=== PATIENT | male | born 1965 | race Caucasian/White ===

== ENCOUNTER 2016-06-24 14:58 | Emergency (ER) | payer OTHER ==
[~2016-06-24] VITALS: Ht 193 cm; Wt 165.1 kg
[~2016-06-24 14:58] MED LIST: (NONE) 12.5 MG-1 TAB PO; ADVAIR 500-501 EACH INH; AMLODIPINE BESY10 M1 PO; ASPIRIN EC325 MG PO; ASPIRIN EC81 M1 PO; AUGMENTIN 875 M1 TAB PO; AZITHROMYCIN250 M1 PO; COZAAR50 M1 PO; CRESTOR20 M2 PO; DEEP SEA44 ML NAS; GLIMEPIRIDE2 MG PO; GUAIFENESIN AC473 M1 PO; GUAIFENESIN ER600 MG PO; HYDROCHLOROTH12.5 M3 PO; JANUMET 1000 MG1 TAB PO; KEFLEX500 MG PO; LEVEMIR 10100 UNITS/ SC; LEVEMIR FL300 UNITS/ SC; LEVEMIR100 UNIT/1 SC; LOSARTAN POTASS25 M1 PO; MEDROL DOSEPAK1 PAC PO; METFORMIN HCL1000 M1 PO; NEXIUM40 M1 PO; NOVOLOG FLEX100 U/ML SC; NOVOLOG100 U/ML SC; PERCOCET 325 MG1 TA2 PO; PERCOCET 325 MG1 TAB PO; PREDNISONE10 M2 PO; PREDNISONE10 MG PO; PREDNISONE20 M1 PO; ROBITUSSIN W/CO10 ML PO; ROXICODONE15 M1 PO; SERTRALINE HYD100 MG PO; SLOW-MAG71.5 MG PO; SYMBICORT 160/41 PUF INH; VICTOZA6 MG/ML SC; ZITHROMAX TRI-500 M1 PO
--- NOTE | 2016-06-24 15:43 | RADIOLOGY REPORT ---
EXAMINATION: XR SHOULDER, LEFT CLINICAL INFORMATION: Pain in shoulder. Rule out fracture or dislocation. COMPARISON: None TECHNIQUE: AP external rotation, Grashey, scapular Y, and axillary views of the left shoulder. FINDINGS: There is no fracture or dislocation. There are mild degenerative changes of the glenohumeral joint characterized by mild subchondral sclerosis. There is mild osteoarthritis of the acromioclavicular joint. The visualized portion of the left lung is clear. IMPRESSION: No fracture or dislocation. Minimal degenerative change.
[2016-06-24] MEDS ORDERED: LISINOPRIL-HCT1 EACH PO (16:22)
[2016-06-24] MEDS ORDERED: AMARYL4 M1 PO (16:22)
[2016-06-24] MEDS ORDERED: MONTELUKAST SOD10 M1 PO (16:25)
[2016-06-24 17:06] VITALS: BP 145/87
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
[2016-06-24] MEDS ORDERED: VENTOLIN HFA18 GM INH (17:45)
[2016-06-24] MEDS ORDERED: ZITHROMAX250 M2 PO (17:45)
[2016-06-24] MEDS ORDERED: GUAIFENESIN-COD10 ML PO (17:45)
[2016-06-24] MEDS ORDERED: MEDROL4 M2 PO (17:45)
[2016-11-08] MEDS ORDERED: COZAAR50 M1 PO (22:39)
[2016-11-08] MEDS ORDERED: HYDROCHLOROTHIA25 M1 PO (22:39)
[2016-11-08] MEDS ORDERED: NAPROXEN500 M2 PO (22:40)
[2016-11-08] MEDS ORDERED: ALBUTEROL2.5 MG/3 M INH/SOL (22:41)
[2016-11-08] MEDS ORDERED: LEVEMIR FL100 UNIT/1 SC (22:41)
[2016-11-09] MEDS ORDERED: AUGMENTIN 875-1 EACH PO (00:03)
== END 2016-06-24 17:57 ==
LOC: ERH 14:58
DX: S46.912A Strain of unspecified muscle, fascia and tendon at shoulder and upper arm level, left arm, initial encounter (principal); J40 Bronchitis, not specified as acute or chronic; Z72.0 Tobacco use
CPT/HCPCS: 73030-LT

== ENCOUNTER 2016-08-20 15:16 | Emergency (ER) | payer OTHER ==
[~2016-08-20] VITALS: Ht 193 cm; Wt 154.2 kg
[~2016-08-20 15:16] MED LIST changes: +AMARYL4 M1 PO; +GUAIFENESIN-COD10 ML PO; +LISINOPRIL-HCT1 EACH PO; +MEDROL4 M2 PO; +MONTELUKAST SOD10 M1 PO; +VENTOLIN HFA18 GM INH; +ZITHROMAX250 M2 PO
--- NOTE | 2016-08-20 16:01 | ED GI/GU/ABDOMINAL COMPLAINT ---
History of Present Illness General Chief Complaint: Abdominal Pain/Flank Pain Stated Complaint: ABD PAIN Source: patient Exam Limitations: no limitations Vital Signs & Intake/Output Vital Signs & Intake/Output Vital Signs Date Time Temp Pulse Resp B/P Pulse O2 O2 Flow FiO2 Ox Delivery Rate 08/20 1541 98.6 80 20 164/101 98 Room Air Allergies Coded Allergies: NO KNOWN ALLERGIES (02/03/15) Reconcile Medications Albuterol Sulfate (Ventolin Hfa) 90 MCG HFA.AER.AD 2 PUF INH Q4-6 PRN PRN WHEEZING Amlodipine Besylate 10 MG TABLET 1 TAB PO DAILY BP (Reported) Aspirin (Ecotrin*) 81 MG TABLET.DR 1 TAB PO DAILY HEART/BLOOD (Reported) Codeine Phosphate/Guaifenesi (Cheratussin AC Syrup) 10 MG-100 MG/5 ML LIQUID 10 ML PO Q6 PRN cough Cyclobenzaprine HCl 10 MG TABLET 1 TAB PO TID MUSCLE SPASMS (Reported) Esomeprazole (Nexium) 40 MG CAPSULE.DR 1 CAP PO BID GI (Reported) Fluticasone/Salmeterol (Advair 500-50 Diskus) 500 MCG-50 MCG/DOSE BLST.W.DEV 1 PUF INH BID ASTHMA (Reported) Glimepiride (Amaryl) 4 MG TABLET 1 TAB PO BID DM (Reported) Hydrochlorothiazide 12.5 MG CAPSULE 1 CAP PO DAILY BP (Reported) Insulin Detemir (Levemir Flextouch) 100 UNIT/ML (3 ML) INSULN.PEN 15 UNITS SC QPM DM (Reported) Liraglutide (Victoza 3-Micah) 0.6 MG/0.1 ML (18 MG/3 ML) PEN.INJCTR 1.8 MG SC DAILY DM (Reported) Losartan Potassium (Cozaar) 25 MG TABLET 1 TAB PO DAILY HTN (Reported) Metformin HCl 1,000 MG TABLET 1,000 MG PO 0800,1700 DIABETES Montelukast Sodium 10 MG TABLET 1 TAB PO DAILY Asthma (Reported) Naproxen 500 MG TABLET 1 TAB PO BID PAIN (Reported) Oxycodone HCl (Roxicodone) 15 MG TABLET 1 TAB PO 4 TIMES/DAY PAIN (Reported) Rosuvastatin Calcium (Crestor) 20 MG TABLET 1 TAB PO DAILY CHOLESTEROL ( Reported) Sertraline HCl 100 MG TABLET 1 TAB PO DAILY MENTAL HEALTH (Reported) Zolpidem Tartrate 10 MG TABLET 1 TAB PO QPM PRN SLEEP (Reported) Triage Note: RECEIVED 50 YO MALE C/O VOMITED LARGE AMOUNT OF BLACK VOMITUS EARLY TUESDAY MORNING. PT CONTINUES TO REPORT UPPER ABDOMINAL PAIN, WORSENING WITH COUGHING. +WEAKNESS AND LIGHTHEADEDNESS WITH MILD NAUSEA. Triage Nurses Notes Reviewed? yes Onset: Abrupt Duration: day(s): (3), waxing and waning Timing: recent history Location: epigastric No Modifying Factors: none Associated Symptoms: ANXIOUS, WEAK, SHORT OF BREATH HPI: 50 year old male presents with history of epigastric pain, black vomiting since tuesday. Patient vomited a few times. Associated shortness of breath and fatigue. Denies chest pain. Has not been able to hold down nexium since . Denies history of alcohol abuse, esophageal varicies. He takes naproxen twice a day and a daily aspirin. Past History Travel History Traveled to [place] past 21 day No Medical History Any Pertinent Medical History? 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 No Review of Systems Review of Systems Constitutional: Denies: chills, fever. EENTM: Reports: no symptoms. Respiratory: Reports: short of breath. Denies: cough, sputum production. Cardiovascular: Denies: chest pain. GI: Reports: abdominal pain, nausea, vomiting. Denies: bloating, constipation, diarrhea. Genitourinary: Reports: no symptoms. Musculoskeletal: Reports: no symptoms. Skin: Reports: no symptoms. Neurological/Psychological: Reports: weakness. Hematologic/Endocrine: Reports: bleeding. Denies: bruising, polyuria, polydipsia. Immunologic/Allergic: Denies: splenectomy. All Other Systems: Reviewed and Negative Physical Exam Physical Exam General Appearance: well developed/nourished, alert, awake, anxious, mild distress, obese Head: atraumatic, normal appearance Eyes: Bilateral: normal appearance, PERRL, EOMI. Ears, Nose, Throat, Mouth: hearing grossly normal, moist mucous membrane Neck: normal inspection, supple, full range of motion Respiratory: normal breath sounds, chest non-tender, no respiratory distress Cardiovascular: regular rate/rhythm Peripheral Pulses: 2+ radial (R), 2+ radial (L) Gastrointestinal: normal bowel sounds, soft, non-tender Rectal: heme negative stool Extremities: normal range of motion Neurologic/Psych: no motor/sensory deficits, awake, alert, oriented x 3 Skin: intact, normal color, warm/dry Core Measures ACS in differential dx? No Severe Sepsis Present: No Septic Shock Present: No Progress Differential Diagnosis: pancreatitis, peptic ulcer, PUD/GERD, AVM, ANEMIA, GASTRIC ULCER, VARICIES, ABHIJIT KEYS TEAR Plan of Care: Orders Procedure Date/time Status LACTIC ACID 08/20 1900 Active TROPONIN LEVEL 08/20 1600 Active PARTIAL THROMBOPLASTIN TIME 08/20 1600 Active PROTHROMBIN TIME 08/20 1600 Active LIPASE 08/20 1600 Active LACTIC ACID 08/20 1600 Active COMPREHENSIVE METABOLIC PANEL 08/20 1600 Active CBC WITHOUT DIFFERENTIAL 08/20 1600 Complete EKG 08/20 1600 Active TYPE & SCREEN (NOT X-MATCH) 08/20 1600 Active Laboratory Tests 08/20/16 1630: Anion Gap 11, Estimated GFR > 60, BUN/Creatinine Ratio 18.9, Glucose 178 H, Lactic Acid 1.4, Calcium 10.2, Total Bilirubin 0.4, AST 23, ALT 33, Alkaline Phosphatase 98, Troponin I Pending, Total Protein 7.1, Albumin 4.0, Globulin 3.1 , Albumin/Globulin Ratio 1.3, Lipase 105, PT Pending, INR Pending, APTT Pending, CBC w Diff NO MAN DIFF REQ, RBC 4.28 L, MCV 89.2, MCH 28.7, RDW 14.6 H, MPV 8.1, Gran % 64.8, Lymphocytes % 21.6, Monocytes % 11.2 H, Eosinophils % 1.7, Basophils % 0.7, Absolute Granulocytes 6.8 H, Absolute Lymphocytes 2.3, Absolute Monocytes 1.2 H, Absolute Eosinophils 0.2, Absolute Basophils 0.1, PUBS MCHC 32.2 L GI COCKTAIL GIVEN. LABS ORDERED IN TRIAGE. GUIAC NEGATIVE, NO ACUTE DISTRESS. NO VOMIITNG. ANTIHYPERTENSIVES ORDERED. H/H . PATIENT FEELING BETTER AFTER GI COCKTAIL. WILL FOLLOW UP WITH GI. (BLACK AHUJA,CECILIA) Initial ED EKG: NSR Departure Departure Time of Disposition: 1721 Disposition: HOME OR SELF CARE Condition: Stable Clinical Impression Primary Impression: Upper GI bleed Referrals: DEVIN ORTIZ (PCP/Family) Additional Instructions: Please discontinue the naproxen and aspirin until you follow up with Dr. Garcia in the office. Please continue all of your other regular medications especially your Nexium. If you have any further events of gastrointestinal bleeding please return immediately to the ER. Departure Forms: Customer Survey General Discharge Information Prescriptions: Current Visit Scripts Codeine Phosphate/Guaifenesi (Cheratussin AC Syrup) 10 ML PO Q6 PRN cough #150 ML
[2016-08-20] MEDS ORDERED: VICTOZA 3-0.6 MG/0.1 SC (16:35)
[2016-08-20] MEDS ORDERED: LOSARTAN POTASS25 M1 PO (16:36)
[2016-08-20] MEDS ORDERED: HYDROCHLOROTH12.5 M3 PO (16:37)
[2016-08-20] MEDS ORDERED: NAPROXEN500 M2 PO (16:38)
[2016-08-20] MEDS ORDERED: CYCLOBENZAPRINE10 M1 PO (16:38)
[2016-08-20] MEDS ORDERED: SERTRALINE HCL100 MG PO (16:38)
[2016-08-20] MEDS ORDERED: ZOLPIDEM TARTRA10 M1 PO (16:39)
[2016-08-20] MEDS ORDERED: LEVEMIR FL100 UNIT/1 SC (16:39)
[2016-08-20 16:53] LABS: ABSOLUTE BASOPHIL COUNT 0.1 /CUMM (0.0-0.2); ABSOLUTE EOSINOPHIL COUNT 0.2 /CUMM (0.0-0.7); ABSOLUTE GRANULOCYTE CT 6.8 /CUMM (1.4-6.5); ABSOLUTE LYMPH COUNT 2.3 /CUMM (1.2-3.4); ABSOLUTE MONOCYTE COUNT 1.2 /CUMM (0.10-0.60); BASOPHIL % 0.7 % (0.0-2.0); EOSINOPHIL % 1.7 % (0-5); GRANULOCYTE % 64.8 % (42.2-75.2); HEMATOCRIT 38.2 % (42-52); MEAN CORPUSCULAR HGB 28.7 PG (27.0-31.0); MEAN CORPUSCULAR HGB CONC 32.2 G/DL (33.0-37.0); MEAN CORPUSCULAR VOLUME 89.2 FL (80.0-94.0); MEAN PLATELET VOLUME 8.1 FL (7.4-10.4); PLATELET COUNT 424 /CUMM (130-400); RBC DISTRIBUTION WIDTH 14.6 % (11.5-14.5); RED BLOOD CELL CT 4.28 /CUMM (4.70-6.10); WHITE BLOOD CELL COUNT 10.5 /CUMM (4.8-10.8)
[2016-08-20 17:01] LABS: PT 10.4 SEC (9.4-12.5); PTT 28 SEC (25-37)
[2016-08-20] MEDS ORDERED: CHERATUSSIN AC118 M1 PO (17:30)
[2016-08-20 17:43] VITALS: BP 160/89
[2016-11-08] MEDS ORDERED: COZAAR50 M1 PO (22:39)
[2016-11-08] MEDS ORDERED: HYDROCHLOROTHIA25 M1 PO (22:39)
[2016-11-08] MEDS ORDERED: NAPROXEN500 M2 PO (22:40)
[2016-11-08] MEDS ORDERED: ALBUTEROL2.5 MG/3 M INH/SOL (22:41)
[2016-11-08] MEDS ORDERED: LEVEMIR FL100 UNIT/1 SC (22:41)
[2016-11-09] MEDS ORDERED: AUGMENTIN 875-1 EACH PO (00:03)
== END 2016-08-20 17:43 ==
LOC: ERH 15:16
PROVIDERS: Emergency Medicine
DX: K92.2 Gastrointestinal hemorrhage, unspecified (principal); R06.02 Shortness of breath; I10 Essential (primary) hypertension; Z72.0 Tobacco use
CPT/HCPCS: 93005; 93010

== ENCOUNTER 2016-08-22 16:19 | Inpatient (IN) | payer OTHER ==
[~2016-08-22] VITALS: Ht 193 cm; Wt 154.2 kg
[~2016-08-22 16:19] MED LIST changes: +CHERATUSSIN AC118 M1 PO; +CYCLOBENZAPRINE10 M1 PO; +LEVEMIR FL100 UNIT/1 SC; +NAPROXEN500 M2 PO; +SERTRALINE HCL100 MG PO; +VICTOZA 3-0.6 MG/0.1 SC; +ZOLPIDEM TARTRA10 M1 PO
--- NOTE | 2016-08-22 16:27 | NUR ---
PT C/O HAVING TROUBLE WITH HIS ASTHMA. PT STATES HE WAS SEEN A COUPLE OF DAYS AGO FOR SAME. PT WAS GIVEN GARTH AC AND STATES HE IS STILL COUGHING ALL DAY LONG AND STATES IT IS GETTING PAINFUL TO COUGH. PT STATES HE HAS BEEN USING HIS INHALER Q4H BUT IT ISN'T HELPING. PT STATES WHEN IT GETS BAD LIKE THIS HE NEEDS A SHOT OF SOLUMEDROL.
--- NOTE | 2016-08-22 17:02 | ED DYSPNEA/ASTHMA COMPLAINT ---
History of Present Illness General Chief Complaint: Wheezing/Asthma Stated Complaint: ASTHMA Source: patient Exam Limitations: no limitations Vital Signs & Intake/Output Vital Signs & Intake/Output Vital Signs Date Time Temp Pulse Resp B/P Pulse O2 O2 Flow FiO2 Ox Delivery Rate 08/224 99.0 100 20 148/70 96 Room Air 08/23 2015 98.1 104 20 142/68 98 Non 90% ReBreather 08/22 1842 98 08/22 1733 98.0 85 22 172/75 94 Room Air 08/22 1731 98 08/22 1713 Room Air 08/22 1627 98.6 91 16 177/99 97 Room Air Allergies Coded Allergies: NO KNOWN ALLERGIES (02/03/15) Triage Note: PT C/O HAVING TROUBLE WITH HIS ASTHMA. PT STATES HE WAS SEEN A COUPLE OF DAYS AGO FOR SAME. PT WAS GIVEN GARTH AC AND STATES HE IS STILL COUGHING ALL DAY LONG AND STATES IT IS GETTING PAINFUL TO COUGH. PT STATES HE HAS BEEN USING HIS INHALER Q4H BUT IT ISN'T HELPING. PT STATES WHEN IT GETS BAD LIKE THIS HE NEEDS A SHOT OF SOLUMEDROL. Triage Nurses Notes Reviewed? yes Onset: Abrupt Duration: day(s):, constant, continues in ED Timing: recent history Severity: moderate, severe HPI: 50-year-old male comes into the emergency room for further evaluation of shortness of breath, cough, congestion, mucus production. Some chest tightness. Patient has a history of asthma and smoking and reports this feels like his asthma. Patient was seen here the other day for abdominal pain and vomiting up blood and sent home. He had a normal workup. Denies any chest pain. Denies any other associated symptoms. (YESSENIA DORADO) Reconcile Medications Albuterol Sulfate (Ventolin Hfa) 90 MCG HFA.AER.AD 2 PUF INH Q4-6 PRN PRN WHEEZING Amlodipine Besylate 10 MG TABLET 1 TAB PO DAILY BP (Reported) Aspirin (Ecotrin*) 81 MG TABLET.DR 1 TAB PO DAILY HEART/BLOOD (Reported) Codeine Phosphate/Guaifenesi (Cheratussin AC Syrup) 10 MG-100 MG/5 ML LIQUID 10 ML PO Q6 PRN cough Cyclobenzaprine HCl 10 MG TABLET 1 TAB PO TID MUSCLE SPASMS (Reported) Esomeprazole (Nexium) 40 MG CAPSULE.DR 1 CAP PO BID GI (Reported) Fluticasone/Salmeterol (Advair 500-50 Diskus) 500 MCG-50 MCG/DOSE BLST.W.DEV 1 PUF INH BID ASTHMA (Reported) Glimepiride (Amaryl) 4 MG TABLET 1 TAB PO BID DM (Reported) Hydrochlorothiazide 12.5 MG CAPSULE 1 CAP PO DAILY BP (Reported) Insulin Detemir (Levemir Flextouch) 100 UNIT/ML (3 ML) INSULN.PEN 15 UNITS SC QPM DM (Reported) Liraglutide (Victoza 3-Micah) 0.6 MG/0.1 ML (18 MG/3 ML) PEN.INJCTR 1.8 MG SC DAILY DM (Reported) Losartan Potassium (Cozaar) 25 MG TABLET 1 TAB PO DAILY HTN (Reported) Metformin HCl 1,000 MG TABLET 1,000 MG PO 0800,1700 DIABETES Montelukast Sodium 10 MG TABLET 1 TAB PO DAILY Asthma (Reported) Naproxen 500 MG TABLET 1 TAB PO BID PAIN (Reported) Oxycodone HCl (Roxicodone) 15 MG TABLET 1 TAB PO 4 TIMES/DAY PAIN (Reported) Rosuvastatin Calcium (Crestor) 20 MG TABLET 1 TAB PO DAILY CHOLESTEROL ( Reported) Sertraline HCl 100 MG TABLET 1 TAB PO DAILY MENTAL HEALTH (Reported) Zolpidem Tartrate 10 MG TABLET 1 TAB PO QPM PRN SLEEP (Reported) (GARRICK AHUJA,RAMILA Jordan) Past History Travel History Traveled to [place] past 21 day No Medical History Any Pertinent Medical History? see below for history Neurological: dizziness EENT: NONE Cardiovascular: hypertension, hyperlipidemia Respiratory: asthma, bronchitis Gastrointestinal: NONE Hepatic: NONE Renal: NONE Musculoskeletal: CELLULITIS Psychiatric: depression Endocrine: diabetes Blood Disorders: NONE Cancer(s): NONE DIAGNOSTIC CARDIAC SONOGRAPHER/Reproductive: NONE Other Medical Hx: Hx of MRSA History of MRSA: Yes History of VRE: No History of CDIFF: No Surgical History Surgical History: partial lung removal splenectomy Psychosocial History Who do you live with Patient/Self Services at Home None What is your primary language Maldivian Tobacco Use: Current Not Daily Daily Tobacco Use Amount/Type: =< 4 Cigarettes daily ETOH Use: occasional use Illicit Drug Use: denies illicit drug use Family History Family History, If Any: FATHER FH: diabetes mellitus SISTER FH: lymphoma Hx Contributory? No (YESSENIA DORADO) Review of Systems Review of Systems Constitutional: Reports: no symptoms. EENTM: Reports: no symptoms. Respiratory: Reports: see HPI. Cardiovascular: Reports: see HPI. GI: Reports: no symptoms. Genitourinary: Reports: no symptoms. Musculoskeletal: Reports: no symptoms. Skin: Reports: no symptoms. Neurological/Psychological: Reports: no symptoms. Hematologic/Endocrine: Reports: no symptoms. Immunologic/Allergic: Reports: no symptoms. All Other Systems: Reviewed and Negative (YESSENIA DORADO) Physical Exam Physical Exam General Appearance: well developed/nourished, alert Head: atraumatic, normal appearance Eyes: Bilateral: normal appearance, EOMI. Ears, Nose, Throat: normal pharynx, normal ENT inspection, hearing grossly normal Neck: normal inspection, full range of motion Respiratory: decreased breath sounds, wheezing Cardiovascular: regular rate/rhythm Gastrointestinal: soft Extremities: normal inspection, normal range of motion Neurologic/Psych: awake, alert, oriented x 3, normal gait, normal mood/affect Skin: intact, normal color Core Measures ACS in differential dx? No Severe Sepsis Present: No Septic Shock Present: No (YESSENIA DORADO) Progress Differential Diagnosis: asthma, AMI, bronchitis, costochondritis, CHF, COPD, musculoskeletal pain, pericarditis, pulmonary embolism, pneumonia, pneumothorax, rib fracture, unstable angina Plan of Care: Orders Procedure Date/time Status Admit to inpatient 08/22 2217 Active ARTERIAL BLOOD GAS (GEN) 08/22 2214 Active RAPID VIRAL INFLUENZA A 08/23 2207 Active THROAT CULTURE W/QUICK STREP 08/23 2207 Active LOWER RESPIRATORY CULTURE 08/22 2138 Active BLOOD CULTURE 08/22 2138 Active Code Status 08/22 2136 Active PEAK FLOW MEASUREMENT (GEN) 08/23 2135 Active TRC EVALUATION (GEN) 08/22 2134 Active TRC EVALUATION (GEN) 08/22 2040 Active OXYGEN SETUP (GEN) 08/22 2040 Active Pathway - chart 08/22 2040 Active House Staff 08/22 2040 Active Patient Data 08/22 2040 Active Patient Data 08/23 2035 Active TROPONIN LEVEL 08/22 1700 Complete COMPREHENSIVE METABOLIC PANEL 08/22 1700 Complete CBC WITHOUT DIFFERENTIAL 08/22 1700 Complete EKG 08/22 1700 Active VTE Mechanical Prophylaxis 08/22 UNK Active Vital Signs 08/22 UNK Active MISTAKE 08/22 UNK Active Intake & Output 08/22 UNK Active Hemoccult 08/22 UNK Active [place] Coma Scale 08/22 UNK Active FingerStick- Glucose 08/22 UNK Active Current Medications Sig/Elodia Start time Last Medication Dose Stop Time Status Admin Insulin Aspart 0 TIDAC 08/23 0800 AC (NovoLOG) Methylprednisolone 40 MG Q8 08/22 2199 UNVr (Solumedrol) Oxycodone HCl 15 MG Q6 PRN 08/22 2144 AC (Roxicodone) Laboratory Tests 08/22/16 1720: Anion Gap 10, Estimated GFR > 60, BUN/Creatinine Ratio 17.5, Glucose 238 H, Calcium 9.1, Total Bilirubin 0.6, AST 27, ALT 26, Alkaline Phosphatase 79, Troponin I < 0.01, Total Protein 6.8, Albumin 3.7, Globulin 3.1, Albumin/ Globulin Ratio 1.2, CBC w Diff NO MAN DIFF REQ, RBC 4.03 L, MCV 88.4, MCH 28.6, RDW 14.6 H, MPV 7.8, Gran % 76.2 H, Lymphocytes % 10.8 L, Monocytes % 10.9 H , Eosinophils % 2.0, Basophils % 0.1, Absolute Granulocytes 7.7 H, Absolute Lymphocytes 1.1 L, Absolute Monocytes 1.1 H, Absolute Eosinophils 0.2, Absolute Basophils 0, PUBS MCHC 32.3 L Microbiology 08/22 2214 NASOPHARYN: Influenza Virus A & B Rapid Smear - RECD 08/22 2199 BLOOD: Blood Culture - RECD 08/23 2139 BLOOD: Blood Culture - RECD 08/22 2138 LOWER RESP: Respiratory Culture - ORD 08/22 2138 LOWER RESP: Gram Stain - ORD Diagnostic Imaging: Viewed by Me: Radiology Read. Discussed w/RAD: Radiology Read. Radiology Impression: SERVICE DATE: 08/22/16-1699 EXAM TYPE: RAD - XRY-CHEST XRAY, PA AND LATERAL EXAMINATION: XR CHEST CLINICAL INFORMATION: Chest tightness. COMPARISON: Prior thoracic imaging, most recent radiography 2015. Chest CT 07/13/2016. TECHNIQUE: Two views of the chest were obtained. FINDINGS: The lungs are well-expanded. Surgical material overlies the left lower lung. Chronic nodular opacity overlying the peripheral left midlung consistent with a pleural/subpleural nodule demonstrated on prior chest CT scans. No new lobar consolidation, pneumothorax, pulmonary edema or pleural effusion. No mediastinal widening. No acute osseous abnormalities. IMPRESSION: No evidence of acute pulmonary pathology. Nonacute findings as described above. DICTATED BY: RYLIE GARCIA MD DATE/TIME DICTATED:08/22/161811 QUALITY CONTROL ANALYST:MYRA DATE/TIME TRANSCRIBED:08/22/161811 Initial ED EKG: normal intervals, normal p-waves, normal sinus rhythm, rate (89) , nonspecific ST T wave chg Prior EKG: unchanged (YESSENIA DORADO) Departure Departure Disposition: STILL A PATIENT Condition: Stable Clinical Impression Primary Impression: Asthma exacerbation Referrals: DEVIN ORTIZ (PCP/Family) Departure Forms: Customer Survey General Discharge Information Admission Note Spoke With: MARTIN DENISE MD Documentation of Exam: Documentation of any treatments & extenuating circumstances including Concerns Regarding Discharge (functional status, medication knowledge or non-compliance, living conditions, etc.) that warrant an admission rather than observation: Patient received IV Solu-Medrol and a continuous neb for an hour and is still tachypneic and wheezing. I do not feel that the patient would do well as an outpatient. Patient will require regular breathing treatments, IV steroids, pulmonary consult. Patient is going to be given IV magnesium. Patient would do poorly as an outpatient. (YESSENIA DORADO) PA/INDUSTRIAL REAL ESTATE AGENT Co-Sign Statement Statement: ED Attending supervision documentation- [] I saw and evaluated the patient. I have also reviewed all the pertinent lab results and diagnostic results. I agree with the findings and the plan of care as documented in the PA's/INDUSTRIAL REAL ESTATE AGENT's documentation. [x] I have reviewed the ED Record and agree with the PA's/INDUSTRIAL REAL ESTATE AGENT's documentation. [] Additions or exceptions (if any) to the PAs/INDUSTRIAL REAL ESTATE AGENT's note and plan are summarized below: [] (GARRICK AHUJA,RAMILA Jordan) Critical Care Note Critical Care Note Critical Care Time: 30-74 min (60 minutes) (YESSENIA DORADO)
--- NOTE | 2016-08-22 17:21 | NUR ---
RESPIRATORY AT BEDSIDE
[2016-08-22 17:33] LABS: ABSOLUTE BASOPHIL COUNT 0 /CUMM (0.0-0.2); ABSOLUTE EOSINOPHIL COUNT 0.2 /CUMM (0.0-0.7); ABSOLUTE GRANULOCYTE CT 7.7 /CUMM (1.4-6.5); ABSOLUTE LYMPH COUNT 1.1 /CUMM (1.2-3.4); ABSOLUTE MONOCYTE COUNT 1.1 /CUMM (0.10-0.60); BASOPHIL % 0.1 % (0.0-2.0); GRANULOCYTE % 76.2 % (42.2-75.2); HEMATOCRIT 35.6 % (42-52); MEAN CORPUSCULAR HGB 28.6 PG (27.0-31.0); MEAN CORPUSCULAR HGB CONC 32.3 G/DL (33.0-37.0); MEAN CORPUSCULAR VOLUME 88.4 FL (80.0-94.0); MEAN PLATELET VOLUME 7.8 FL (7.4-10.4); PLATELET COUNT 382 /CUMM (130-400); RBC DISTRIBUTION WIDTH 14.6 % (11.5-14.5); RED BLOOD CELL CT 4.03 /CUMM (4.70-6.10)
--- NOTE | 2016-08-22 17:42 | NUR ---
BLOOD DRAWN AND SENT TO [facility]. IV EST, PT MEDICATED WITH SOLU MEDROL PER EMAR.
--- NOTE | 2016-08-22 18:21 | RADIOLOGY REPORT ---
EXAMINATION: XR CHEST CLINICAL INFORMATION: Chest tightness. COMPARISON: Prior thoracic imaging, most recent radiography 03/23/2016. Chest CT 07/13/2016. TECHNIQUE: Two views of the chest were obtained. FINDINGS: The lungs are well-expanded. Surgical material overlies the left lower lung. Chronic nodular opacity overlying the peripheral left midlung consistent with a pleural/subpleural nodule demonstrated on prior chest CT scans. No new lobar consolidation, pneumothorax, pulmonary edema or pleural effusion. No mediastinal widening. No acute osseous abnormalities. IMPRESSION: No evidence of acute pulmonary pathology. Nonacute findings as described above.
--- NOTE | 2016-08-22 19:05 | NUR ---
ASSUMED CARE OF PT PER OSCAR CALVERT. PT IN RM AND RN WILL MEDICATE
--- NOTE | 2016-08-22 19:11 | NUR ---
PT MEDICATED WITH ROBITUSSIN AC 10ML PO, COZAAR 50MG PO, HCTZ 12.5MG PO AND NORVASC 10MG PO
--- NOTE | 2016-08-22 19:53 | NUR ---
PT IN RM SITTING ON CHAIR, PT HAS CALL WU WITHIN REACH, WILL CONTINUE TO MONITOR
--- NOTE | 2016-08-22 20:37 | NUR ---
PT MEDICATED WITH 1 TAB PERCOCET FOR PAIN PER EMAR.
--- NOTE | 2016-08-22 21:06 | NUR ---
IN DOCTORS NOTE IT STATES THAT PT HAS A HX OF MRSA, PRECAUTION CART PLACED OUTSIDE DOOR. PTS BS CHECKED [id number]
--- NOTE | 2016-08-22 21:21 | NUR ---
HOUSE STAFF IN FOR EVAL
[2016-08-22] MEDS ORDERED: COZAAR25 M1 PO (21:32)
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
--- NOTE | 2016-08-22 21:56 | NUR ---
PT MEDICATED WITH 40MG PRILOSEC PO PER EMAR AND 15UNITS LEVEMIR SC IN LEFT ABD VERFIIED BY OSCAR ZHENG. BLOOD CULTURES COLLECTED AND SENT
--- NOTE | 2016-08-22 22:08 | NUR ---
PT STILL COUGHING, THIS RN MEDICATED PT WITH ROBITUSSIN PER EMAR.
--- NOTE | 2016-08-22 22:19 | NUR ---
FLU SWAB AND THROAT CULTURE/QUIK STREP COLLECTED AND SENT TO LAB BY THIS RN
--- NOTE | 2016-08-22 22:41 | NUR ---
THIS RN CALLED OSCAR HANSON WHO WILL BE TAKING REPORT AND OSCAR HANSON STATES SHE WILL CALL BACK IN 10 MINS.
--- NOTE | 2016-08-22 22:51 | NUR ---
REPORT GIVEN TO OSCAR HANSON,
--- NOTE | 2016-08-22 23:29 | NUR ---
AT 2040 SPOKE WITH OSCAR PRITCHARD IN ER. 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 ASKED TO CALL BACK IN A FEW MINUTES WITH NEW ROOM ASSIGNMENT TO GET REPORT.
[2016-08-22 23:31] VITALS: BP 178/88
--- NOTE | 2016-08-23 01:20 | NUR ---
PT ADMITTED FROM ER AT 2300. ORIENETED TO ROOM ,CALL WU, AND STAFF. aLERT AND ORIENTED X 3. IND AMBULATION. C/O BACK PAIN 01/30. B/P ELEVATED AT 178/88- ONE TIME DOSE OF 10 MG NORVASC GIVEN PER MD ERNANDEZ. MEDICATE FOR PAIN ORDERED. IV MAG. WILL CONTINUE TO MONITOR.
[2016-08-23 01:32] VITALS: BP 160/80
--- NOTE | 2016-08-23 04:08 | Admission Certification ---
Admission Certification Certification Statement - As attending physician, I certify that at the time of - admission, based on clinical presentation, severity of - symptoms, need for further diagnostic testing and - therapeutic interventions, and risk of adverse outcomes - without in-hospital treatment, in my clinical assessment, - this patient requires an acute hospital stay for a minimum - of two nights or longer. I have also considered psychsocial - factors such as support system, advanced age, financial - issues, cognitive issues, and failed out-patient treatments, - past re-admission history, safety of patient, and lack of - compliance as applicable. Specific rationale supporting this admission is: asthma exacerbation
[2016-08-23 06:35] VITALS: BP 156/80
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
--- NOTE | 2016-08-23 10:06 | Cons- Pulmonary ---
General Information and HPI Consulting Request Date of Consult: 08/23/16 Requested By: Dr. Guerrier Reason for Consult: asthma exacerbation Source of Information: patient Exam Limitations: no limitations History of Present Illness: 50 year old man. Hospitalized for an acute exacerbation of asthma Remains compliant with inhalers quit smoking, occasionally uses cigars will return to mask therapy, could not tolerate nasal mask, will have full mask. CT unchanged since 2013, plaques and nodules. He had a sleep study in November 2015. Showing extremely severe obstructive sleep apnea with loud snoring. AHI has been 108.2 with a low oxygen saturation to 74%. The AHI severely elevated supine at 108.2 CPAP was initiated and patient was prescribed CPAP at 16 cm water which controlled the AHI to 0. Compliance reviewed usage day 73% over 4 hours 50% AHI is 1.8. CT chest reviewed from November no change in calcified pleural plaques in the left. No change in multiple scattered bilateral pulmonary nodules. ADVAIR twice a day everyday. He uses rescue inhaler at least 4 times a week. He reports that he cant do exercise much because of exertional dyspnea. He reports having difficulty falling sleep. He has normal PFTs with slightly diminished lung volumes. CXR No evidence of acute pulmonary pathology. Nonacute findings as described above Allergies/Medications Allergies: Coded Allergies: NO KNOWN ALLERGIES (02/03/15) Home Med List: Albuterol Sulfate (Ventolin Hfa) 90 MCG HFA.AER.AD 2 PUF INH Q4-6 PRN PRN WHEEZING Amlodipine Besylate 10 MG TABLET 1 TAB PO DAILY BP (Reported) Aspirin (Ecotrin*) 81 MG TABLET.DR 1 TAB PO DAILY HEART/BLOOD (Reported) Codeine Phosphate/Guaifenesi (Cheratussin AC Syrup) 10 MG-100 MG/5 ML LIQUID 10 ML PO Q6 PRN cough Cyclobenzaprine HCl 10 MG TABLET 1 TAB PO TID MUSCLE SPASMS (Reported) Esomeprazole (Nexium) 40 MG CAPSULE.DR 1 CAP PO BID GI (Reported) Fluticasone/Salmeterol (Advair 500-50 Diskus) 500 MCG-50 MCG/DOSE BLST.W.DEV 1 PUF INH BID ASTHMA (Reported) Glimepiride (Amaryl) 4 MG TABLET 1 TAB PO BID DM (Reported) Hydrochlorothiazide 12.5 MG CAPSULE 1 CAP PO DAILY BP (Reported) Insulin Detemir (Levemir Flextouch) 100 UNIT/ML (3 ML) INSULN.PEN 15 UNITS SC QPM DM (Reported) Liraglutide (Victoza 3-Micah) 0.6 MG/0.1 ML (18 MG/3 ML) PEN.INJCTR 1.8 MG SC DAILY DM (Reported) Losartan Potassium (Cozaar) 25 MG TABLET 1 TAB PO DAILY HTN (Reported) Metformin HCl 1,000 MG TABLET 1,000 MG PO 0800,1700 DIABETES Montelukast Sodium 10 MG TABLET 1 TAB PO DAILY Asthma (Reported) Naproxen 500 MG TABLET 1 TAB PO BID PAIN (Reported) Oxycodone HCl (Roxicodone) 15 MG TABLET 1 TAB PO 4 TIMES/DAY PAIN (Reported) Rosuvastatin Calcium (Crestor) 20 MG TABLET 1 TAB PO DAILY CHOLESTEROL ( Reported) Sertraline HCl 100 MG TABLET 1 TAB PO DAILY MENTAL HEALTH (Reported) Zolpidem Tartrate 10 MG TABLET 1 TAB PO QPM PRN SLEEP (Reported) Current Medications: Current Medications Sig/Elodia Start time Last Medication Dose Route Stop Time Status Admin Albuterol Sulfate 3 ML EVERY 4 HRS/AWAKE 08/23 0815 AC 08/23 INH 1120 Albuterol Sulfate 3 ML ONCE ONE 08/23 0145 DC 08/23 INH 08/23 0146 0146 Albuterol Sulfate 3 ML ONCE ONE 08/22 1830 DC 04 INH 04 1831 1833 Albuterol Sulfate 3 ML ONCE ONE 08/22 1830 DC 04/ INH 04 1831 1833 Albuterol Sulfate 3 ML ONCE ONE 08/22 1830 DC 04 INH 04 1831 1833 Albuterol Sulfate 3 ML ONCE ONE 08/22 1830 DC 04/ INH 04 1831 1833 Albuterol Sulfate 3 ML ONCE ONE 08/22 1830 DC 04/ INH 04 1831 1833 Albuterol Sulfate 3 ML ONCE ONE 08/22 1830 DC 04/ INH 04 1831 1833 Albuterol Sulfate 3 ML ONCE ONE 08/22 1700 DC 04/ INH 04 1701 1724 Amlodipine Besylate 10 MG DAILY 08/24 0000 AC PO Amlodipine Besylate 10 MG DAILY 08/23 1000 DC PO Amlodipine Besylate 10 MG .STK-MED ONE 08/23 0021 DC PO 08/23 0022 Amlodipine Besylate 10 MG ONCE ONE 08/23 0015 DC 04/ PO / 0016 0032 Amlodipine Besylate 10 MG ONCE ONE 08/22 1900 DC 04/ PO 04/ 1901 1910 Aspirin Buffered 81 MG DAILY 04/ 1000 AC 04/ PO 1022 Atorvastatin Calcium 80 MG 1700 04/ 1700 AC PO Benzocaine/Menthol 1 SAUL Q2P PRN 08/23 0430 AC 04 PO 0931 Cyclobenzaprine HCl 5 MG .STK-MED ONE 08/23 0041 DC PO 08/23 0042 Cyclobenzaprine HCl 5 MG .STK-MED ONE 08/23 0039 DC PO 08/23 0040 Cyclobenzaprine HCl 10 MG TID PRN 08/23 0000 AC 08/23 PO 0930 Fluticasone 2 SPRAY DAILY 08/23 1000 AC 08/23 Propionate ARELY 1020 Guaifenesin 600 MG Q12 08/23 1000 AC 08/23 PO 1022 Guaifenesin 10 ML Q4 08/23 0200 AC 08/23 PO 1020 Guaifenesin 10 ML Q4P PRN 08/22 2145 DC 08/22 PO 2207 Guaifenesin/Codeine 10 ML ONCE ONE 08/22 1830 DC 04 Phosphate PO 08/22 1831 1910 Heparin Sodium 5,000 UNIT Q8 08/22 2316 AC 08/23 (Porcine) SC 0546 Hydrochlorothiazide 12.5 MG DAILY 08/23 1000 AC 08/23 PO 1022 Hydrochlorothiazide 12.5 MG ONCE ONE 08/22 1900 DC 04/ PO 08/22 1901 1910 Insulin Aspart 0 TIDAC 08/23 1200 AC SC Insulin Aspart 0 TIDAC / 0800 AC 08/23 SC 1021 Insulin Detemir 20 UNITS QPM / 2200 AC SC Insulin Detemir 5 UNITS ONCE ONE 08/22 2315 DC 08/23 SC 08/22 2316 0033 Insulin Detemir 15 UNITS QPM 04/ 2200 DC 04 SC 2155 Ipratropium Harrold 2.5 ML EVERY 4 HRS/AWAKE 08/23 0815 AC 08/23 INH 1120 Ipratropium Harrold 2.5 ML ONCE ONE 08/23 0145 DC 08/23 INH 08/23 0146 0146 Ipratropium Harrold 2.5 ML ONCE ONE 08/22 1700 DC 04 INH 08/22 1701 1724 Losartan Potassium 25 MG DAILY / 1000 AC / PO 1025 Losartan Potassium 50 MG ONCE ONE 08/22 1900 DC 04/ PO 08/22 1901 1910 Magnesium Sulfate 1 GM .STK-MED ONE 08/23 0054 DC IV 08/23 0055 Magnesium Sulfate 1 GM Q2H 08/22 2045 DC 08/23 Dextrose/Water 100 ML IV 08/23 0044 0057 Methylprednisolone 40 MG Q12 08/23 2200 AC IV Methylprednisolone 40 MG Q8 08/22 2200 DC 08/23 IV 0547 Methylprednisolone 0 .STK-MED ONE 08/22 1740 DC .ROUTE Methylprednisolone 125 MG ONCE ONE 08/22 1700 DC 08/22 IV 08/22 1701 1742 Omeprazole 40 MG BID 08/22 2200 AC 08/23 PO 1022 Omeprazole 0 .STK-MED ONE 08/22 2150 DC PO Oxycodone HCl 15 MG .STK-MED ONE 08/23 0021 DC PO 08/23 0022 Oxycodone HCl 15 MG Q6 PRN 08/22 2145 AC 08/23 PO 0628 Oxycodone/ 0 .STK-MED ONE 08/22 2038 DC Acetaminophen PO Oxycodone/ 1 TAB ONCE ONE 08/22 2030 DC 08/22 Acetaminophen PO 08/22 203 2036 Patient Medication 1 UNIT 1000 08/24 1000 AC Teaching ED 08/24 1001 Sertraline HCl 100 MG DAILY 08/23 1000 AC 08/23 PO 1022 Zolpidem Tartrate 10 MG QPM PRN 08/22 2330 AC PO Review of Systems Comments 18 point Review of Systems performed. Positive and negative pertinent findings are deliniated in the HPI. Otherwise the ROS is negative. Past History Travel History Traveled to [place] past 21 day No Medical History Neurological: dizziness EENT: NONE Cardiovascular: hypertension, hyperlipidemia Respiratory: asthma, bronchitis Gastrointestinal: NONE Hepatic: NONE Renal: NONE Musculoskeletal: CELLULITIS Psychiatric: depression Endocrine: diabetes Blood Disorders: NONE Cancer(s): NONE CLIENT LIAISON/Reproductive: NONE Other Medical Hx: Hx of MRSA Surgical History Surgical History: partial lung removal splenectomy Family History Relations & Conditions If Any: FATHER FH: diabetes mellitus SISTER FH: lymphoma Psychosocial History Who Do You Live With? self Services at Home: None Primary Language: [place] Smoking Status: Former Smoker ETOH Use: occasional use Illicit Drug Use: denies illicit drug use Functional Ability ADLs Independent: dressing, eating, toileting, bathing. Ambulation: independent IADLs Independent: shopping, housework, finances, food prep, telephone, transportation , medication admin. Exam & Diagnostic Data Last 24 Hrs of Vital Signs/I&O Vital Signs Date Time Temp Pulse Resp B/P Pulse O2 O2 Flow FiO2 Ox Delivery Rate 08/23 1025 100 156/80 08/23 0913 Room Air 08/23 0805 97 Room Air 08/23 0635 99.2 100 20 156/80 95 Room Air 08/23 0150 98 Room Air 08/23 0132 90 160/80 08/23 0032 178/88 08/22 2341 Room Air 08/22 2331 98.6 94 20 178/88 96 Room Air 08/22 2204 99.0 100 20 148/70 96 Room Air 08/22 2016 98.1 104 20 142/68 98 Non 90% ReBreather 08/22 1842 98 08/22 1733 98.0 85 22 172/75 94 Room Air 08/22 1731 98 08/22 1713 Room Air 08/22 1627 98.6 91 16 177/99 97 Room Air Intake & Output 08/23 1600 08/23 0800 08/23 0000 Intake Total 220 Output Total 1800 Balance -1580 Intake, IV 100 Intake, Oral 120 Output, Urine 1800 Patient 340 lb Weight Physical Exam Other Physical Findings: General - Alert, awake and oriented HEENT - normocephalic, atraumatic Cardiovascular - S1, S2 Lungs - rare rhonchi Abdomen - soft, bowel sounds positive, no tenderness Extremities - without edema or cyanosis Last 48 Hrs of Labs/Darren: Laboratory Tests 08/23/16 0230: pH 7.39, pCO2 31 L, pO2 87, HCO3 18 L, ABG O2 Sat (Measured) 95.0 L, P-50 ( Temp Corrected) Y, Carboxyhemoglobin 0.3 L, O2 Concentration % RA, Temperature 98.6, Phlebotomy Draw Site RIGHT RADIAL 08/22/16 1720: Anion Gap 10, Estimated GFR > 60, BUN/Creatinine Ratio 17.5, Glucose 238 H, Calcium 9.1, Iron 60, TIBC 407, Ferritin 14.2 L, Total Bilirubin 0.6, AST 27, ALT 26, Alkaline Phosphatase 79, Troponin I < 0.01, Total Protein 6.8, Albumin 3.7, Globulin 3.1, Albumin/Globulin Ratio 1.2, CBC w Diff NO MAN DIFF REQ, RBC 4.03 L, MCV 88.4, MCH 28.6, RDW 14.6 H, MPV 7.8, Gran % 76.2 H, Lymphocytes % 10.8 L, Monocytes % 10.9 H, Eosinophils % 2.0, Basophils % 0.1, Absolute Granulocytes 7.7 H, Absolute Lymphocytes 1.1 L, Absolute Monocytes 1.1 H, Absolute Eosinophils 0.2, Absolute Basophils 0, PUBS MCHC 32.3 L 08/22/16 1700: Lyme Disease Antibody Pending Assessment/Plan Impression/Plan: Impression 50 year old man * Acute exacerbation of asthma, possibly allergic vs URI component as a cause * Multiple pulmonary nodules * JO * tobacco dependence Plan * Solumedrol 40mg iv q12h, transition to po tomorrow * aggressive glucose control, does not tolerate quick taper unfortunately, monitor glucose closely given underlying diabetes and steroid use * Peak flow q shift - ensure recorded by respiratory therapy to monitor for improvement * TRC/Nebs - Albuterol/Atrovent * patient has not smoked cigarettes in 1 month, however smokes cigars occasionally, smoking cessation performed and counseled * sleep apnea compliance to resume as outpatient DVT prophylaxis at all times Consult Acknowledgment - Thank you for your consult request.
--- NOTE | 2016-08-23 12:59 | Cons- Endocrinology ---
General Information and HPI Consulting Request Date of Consult: 08/23/16 Requested By: medical team Reason for Consult: Uncontrolled diabetes Source of Information: patient, old records Exam Limitations: no limitations History of Present Illness: This 50-year-old male has a known history of diabetes mellitus type 2 associated with obesity. He was on Levemir prior to admission along with Victoza metformin and glimeperide. He came to the emergency room because of trouble breathing and it's now on methylprednisolone 40 mg IV every 12 hours. His blood sugars have become quite elevated. This morning his sugar was 330 and before lunch is 275. Allergies/Medications Allergies: Coded Allergies: NO KNOWN ALLERGIES (02/03/15) Home Med List: Acetylcysteine (Acetylcysteine) 200 MG/ML (20 %) VIAL 2 ML INH BID ASTHMA Albuterol Sulfate (Ventolin Hfa) 90 MCG HFA.AER.AD 2 PUF INH Q4-6 PRN PRN WHEEZING Amlodipine Besylate 10 MG TABLET 1 TAB PO DAILY BP (Reported) Aspirin (Ecotrin*) 81 MG TABLET.DR 1 TAB PO DAILY HEART/BLOOD (Reported) Azithromycin (Zithromax) 250 MG TABLET 1 TAB PO DAILY ASTHMA Codeine Phosphate/Guaifenesi (Cheratussin AC Syrup) 10 MG-100 MG/5 ML LIQUID 10 ML PO Q6 PRN cough Cyclobenzaprine HCl 10 MG TABLET 1 TAB PO TID MUSCLE SPASMS (Reported) Esomeprazole (Nexium) 40 MG CAPSULE.DR 1 CAP PO BID GI (Reported) Fluticasone/Salmeterol (Advair 500-50 Diskus) 500 MCG-50 MCG/DOSE BLST.W.DEV 1 PUF INH BID ASTHMA (Reported) Glimepiride (Amaryl) 4 MG TABLET 1 TAB PO BID DM (Reported) Guaifenesin (Mucinex) 600 MG TAB.ER.12H 1 TAB PO BID ASTHMA Guaifenesin 100 MG/5 ML LIQUID 10 ML PO Q4P PRN COUGH Hydrochlorothiazide 12.5 MG CAPSULE 1 CAP PO DAILY BP (Reported) Liraglutide (Victoza 3-Micah) 0.6 MG/0.1 ML (18 MG/3 ML) PEN.INJCTR 1.8 MG SC DAILY DM (Reported) Losartan Potassium (Cozaar) 25 MG TABLET 1 TAB PO DAILY HTN (Reported) Metformin HCl 1,000 MG TABLET 1,000 MG PO 0800,1700 DIABETES Montelukast Sodium 10 MG TABLET 10 MG PO AT BEDTIME ASTHMA Oxycodone HCl (Roxicodone) 15 MG TABLET 1 TAB PO 4 TIMES/DAY PAIN (Reported) Oxycodone HCl/Acetaminophen (Percocet 5-325 MG Tablet) 5 MG-325 MG TABLET 1-2 TAB PO Q6P PRN PAIN Prednisone 20 MG TABLET 10 MG PO DAILY ASTHMA 60 MG FOR 3 DAYS 50 MG FOR 3 DAYS 40 MG FOR 3 DAYS 30 MG FOR 3 DAYS 20 MG FOR 3 DAYS 10 MG FOR 3 DAYS AND THEN STOP Rosuvastatin Calcium (Crestor) 20 MG TABLET 1 TAB PO DAILY CHOLESTEROL ( Reported) Sertraline HCl 100 MG TABLET 1 TAB PO DAILY MENTAL HEALTH (Reported) Zolpidem Tartrate 10 MG TABLET 1 TAB PO QPM PRN SLEEP (Reported) Past History Travel History Traveled to [place] past 21 day No Medical History Neurological: dizziness EENT: NONE Cardiovascular: hypertension, hyperlipidemia Respiratory: asthma, bronchitis Gastrointestinal: NONE Hepatic: NONE Renal: NONE Musculoskeletal: CELLULITIS Psychiatric: depression Endocrine: diabetes Blood Disorders: NONE Cancer(s): NONE OBSTETRIC ASSISTANT/Reproductive: NONE Other Medical Hx: Hx of MRSA Surgical History Surgical History: partial lung removal splenectomy Family History Relations & Conditions If Any: FATHER FH: diabetes mellitus SISTER FH: lymphoma Psychosocial History Who Do You Live With? self Services at Home: None Primary Language: Setswana Smoking Status: Former Smoker ETOH Use: occasional use Illicit Drug Use: denies illicit drug use Functional Ability ADLs Independent: dressing, eating, toileting, bathing. Ambulation: independent IADLs Independent: shopping, housework, finances, food prep, telephone, transportation , medication admin. Exam & Diagnostic Data Last 24 Hrs of Vital Signs/I&O Vital Signs Date Time Temp Pulse Resp B/P Pulse O2 O2 Flow FiO2 Ox Delivery Rate 08/23 1025 100 156/80 04/ 0913 Room Air 08/23 0805 97 Room Air 08/23 0635 99.2 100 20 156/80 95 Room Air 08/23 0150 98 Room Air 08/23 0132 90 160/80 / 0032 178/88 04 2341 Room Air 08/22 2331 98.6 94 20 178/88 96 Room Air 08/22 2204 99.0 100 20 148/70 96 Room Air 08/23 2015 98.1 104 20 142/68 98 Non 90% ReBreather 08/22 1842 98 08/22 1733 98.0 85 22 172/75 94 Room Air 08/22 1731 98 08/22 1713 Room Air 08/22 1627 98.6 91 16 177/99 97 Room Air Intake & Output 08/23 1600 08/23 0800 04/ 0000 Intake Total 220 Output Total 1800 Balance -1580 Intake, IV 100 Intake, Oral 120 Output, Urine 1800 Patient 340 lb Weight Vital Signs Date Time Temp Pulse Resp B/P Pulse O2 O2 Flow FiO2 Ox Delivery Rate 08/23 1025 100 156/80 04/ 0913 Room Air 08/23 0805 97 Room Air 08/23 0635 99.2 100 20 156/80 95 Room Air 08/23 0150 98 Room Air 04 0132 90 160/80 0403 0032 178/88 08/22 2341 Room Air 08/22 2331 98.6 94 20 178/88 96 Room Air 08/22 2204 99.0 100 20 148/70 96 Room Air 08/23 2015 98.1 104 20 142/68 98 Non 90% ReBreather 08/22 1842 98 08/22 1733 98.0 85 22 172/75 94 Room Air 08/22 1731 98 08/22 1713 Room Air 08/22 1627 98.6 91 16 177/99 97 Room Air Intake & Output 08/23 1600 08/23 0800 04 0000 Intake Total 220 Output Total 1800 Balance -1580 Intake, IV 100 Intake, Oral 120 Output, Urine 1800 Patient 340 lb Weight Labs/Darren Results: Laboratory Tests 08/23 08/22 0230 1720 Blood Gas pH (7.35 - 7.45 PH) 7.39 pCO2 (35 - 45 TORR) 31 L pO2 (80 - 100 TORR) 87 HCO3 (21 - 28 MEQ/L) 18 L ABG O2 Sat (Measured) (>96.0 %) 95.0 L P-50 (Temp Corrected) Y Carboxyhemoglobin (1.5 - 5.0 %) 0.3 L O2 Concentration % RA Temperature (97.0 - 100.0 FARH) 98.6 Chemistry Sodium (137 - 145 mmol/L) 135 L Potassium (3.5 - 5.1 mmol/L) 4.2 Chloride (98 - 107 mmol/L) 100 Carbon Dioxide (22 - 30 mmol/L) 25 Anion Gap (5 - 16) 10 BUN (9 - 20 mg/dL) 14 Creatinine (0.7 - 1.2 mg/dL) 0.8 Estimated GFR (>60 ml/min) > 60 BUN/Creatinine Ratio (7 - 25 %) 17.5 Glucose (65 - 99 mg/dL) 238 H Calcium (8.4 - 10.2 mg/dL) 9.1 Iron (49 - 181 ug/dL) 60 TIBC (261 - 462 ug/dL) 407 Ferritin (17.9 - 464 ng/mL) 14.2 L Total Bilirubin (0.2 - 1.3 mg/dL) 0.6 AST (17 - 59 U/L) 27 ALT (21 - 72 U/L) 26 Alkaline Phosphatase (< 127 U/L) 79 Troponin I (<0.11 ng/ml) < 0.01 Total Protein (6.3 - 8.2 g/dL) 6.8 Albumin (3.5 - 5.0 g/dL) 3.7 Globulin (1.9 - 4.2 gm/dL) 3.1 Albumin/Globulin Ratio (1.1 - 2.2 %) 1.2 Hematology CBC w Diff NO MAN DIFF REQ WBC (4.8 - 10.8 /CUMM) 10.0 RBC (4.70 - 6.10 /CUMM) 4.03 L Hgb (14.0 - 18.0 G/DL) 11.5 L Hct (42 - 52 %) 35.6 L MCV (80.0 - 94.0 FL) 88.4 MCH (27.0 - 31.0 PG) 28.6 RDW (11.5 - 14.5 %) 14.6 H Plt Count (130 - 400 /CUMM) 382 MPV (7.4 - 10.4 FL) 7.8 Gran % (42.2 - 75.2 %) 76.2 H Lymphocytes % (20.5 - 51.1 %) 10.8 L Monocytes % (1.7 - 9.3 %) 10.9 H Eosinophils % (0 - 5 %) 2.0 Basophils % (0.0 - 2.0 %) 0.1 Absolute Granulocytes (1.4 - 6.5 /CUMM) 7.7 H Absolute Lymphocytes (1.2 - 3.4 /CUMM) 1.1 L Absolute Monocytes (0.10 - 0.60 /CUMM) 1.1 H Absolute Eosinophils (0.0 - 0.7 /CUMM) 0.2 Absolute Basophils (0.0 - 0.2 /CUMM) 0 PUBS MCHC (33.0 - 37.0 G/DL) 32.3 L Miscellaneous Phlebotomy Draw Site RIGHT RADIAL 08/22 1700 Serology Lyme Disease Antibody Pending Assessment/Plan Assessment/Plan This 50-year-old male on 2 diabetes mellitus being aggravated by high-dose steroid therapy for COPD. Need to adjust the patient's insulin to help compensate for the effects of steroids on his blood sugar. Suggest increase Levemir to 15 units twice a day. He can receive a dose of Levemir now of 15 units and the order for 15 units twice a day could start at bedtime tonight. In addition we should increase his sliding-scale NovoLog before meals. Sliding-scale NovoLog before meals should be 80-150 give 6 units NovoLog, 151-200 give 8 units NovoLog, 201-250 give 10 units NovoLog, 251-300 give 12 units NovoLog, 301-350 give 14 units NovoLog, 351-400 give 16 units NovoLog. A separate bedtime sliding-scale NovoLog should be written. Sliding-scale NovoLog at bedtime should be less than 250 give no insulin, 251-300 give 3 units NovoLog, 301 06/25/1949 give 4 units NovoLog, 351 400 give 5 units NovoLog. Consult Acknowledgment - Thank you for your consult request.
[2016-08-23 14:48] VITALS: BP 125/72
[2016-08-23 22:38] VITALS: BP 140/70
[2016-08-24 06:55] VITALS: BP 138/80
--- NOTE | 2016-08-24 07:58 | PN- Diabetes ---
Assessment/Plan Assessment: States he feels little better. He continues on methylprednisolone 40 mg twice a day. His sugars late in the day yesterday were high but we began his new insulin regimen after midday. This morning his fingerstick sugar is down to 188. Plan: Suggest continue the present insulin. Today will be the first full day on this insulin regimen. Further adjustments may be necessary. Subjective Subjective: Feels improved Review of Systems Constitutional: Denies: chills, fever. Cardiovascular: Denies: chest pain. Respiratory: Denies: short of breath. Gastrointestinal: Denies: abdominal pain, nausea, vomiting. Genitourinary: Denies: dysuria. Skin: Reports: no symptoms, see HPI. Objective Last 24 Hrs of Vital Signs/I&O Vital Signs Date Time Temp Pulse Resp B/P Pulse O2 O2 Flow FiO2 Ox Delivery Rate 08/24 0742 97 Room Air 08/24 0655 98.0 90 20 138/80 96 Room Air 04/04 0019 90 156/86 04/04 0000 95 Room Air 04/ 2238 98.0 96 20 140/70 95 Room Air 04/ 1645 94 Room Air 04/ 1448 97.2 103 20 125/72 96 04/03 1025 100 156/80 04/03 0913 Room Air 04/03 0805 97 Room Air 04/ 0800 Room Air Intake & Output /04 0800 04/04 0000 04/03 1600 Intake Total 1000 1000 600 Output Total Balance 1000 1000 600 Intake, Oral 1000 1000 600 Number 0 Bowel Movements Vital Signs Date Time Temp Pulse Resp B/P Pulse O2 O2 Flow FiO2 Ox Delivery Rate 08/24 0742 97 Room Air / 0655 98.0 90 20 138/80 96 Room Air 04/04 0019 90 156/86 04/04 0000 95 Room Air 04/03 2238 98.0 96 20 140/70 95 Room Air 04/03 1645 94 Room Air 04/03 1448 97.2 103 20 125/72 96 04/03 1025 100 156/80 04/03 0913 Room Air 04/03 0805 97 Room Air 04/03 0800 Room Air Intake & Output 04/04 0800 04/04 0000 04/03 1600 Intake Total 1000 1000 600 Output Total Balance 1000 1000 600 Intake, Oral 1000 1000 600 Number 0 Bowel Movements Physical Exam General Appearance: alert, awake, obese Neck: normal inspection Respiratory: wheezing (mild) Cardiovascular: regular rate/rhythm Extremities: normal inspection Current Medications: Current Medications Sig/Elodia Start time Last Medication Dose Route Stop Time Status Admin Albuterol Sulfate 3 ML EVERY 4 HRS/AWAKE 08/23 0815 AC 08/24 INH 0738 Amlodipine Besylate 10 MG DAILY 08/24 0000 AC 08/24 PO 0019 Amlodipine Besylate 10 MG DAILY 04 1000 DC PO Aspirin Buffered 81 MG DAILY 08/23 1000 AC 08/23 PO 1022 Atorvastatin Calcium 80 MG 1700 08/23 1700 AC 04 PO 1934 Benzocaine/Menthol 1 SAUL Q2P PRN 08/23 0430 AC 08/24 PO 0358 Cyclobenzaprine HCl 5 MG .STK-MED ONE 08/23 1506 DC PO 08/23 1507 Cyclobenzaprine HCl 5 MG .STK-MED ONE 08/23 1454 DC PO 08/23 1455 Cyclobenzaprine HCl 10 MG TID PRN 08/23 0000 AC 08/24 PO 0119 Fluticasone 2 SPRAY DAILY 08/23 1000 AC 08/23 Propionate ARELY 1020 Guaifenesin 600 MG Q12 08/23 2200 CAN PO Guaifenesin 600 MG Q12 / 1000 AC 08/23 PO 2102 Guaifenesin 10 ML Q4 08/23 0200 AC 08/24 PO 0610 Heparin Sodium 5,000 UNIT Q8 / 2316 AC 08/24 (Porcine) SC 0614 Hydrochlorothiazide 12.5 MG DAILY 08/23 1000 AC 08/23 PO 1022 Insulin Aspart 0 TIDAC/HS 08/23 1700 AC 08/23 SC 2101 Insulin Aspart 0 TIDAC 08/23 1200 DC SC Insulin Aspart 0 TIDAC 08/23 0800 DC 08/23 SC 1222 Insulin Detemir 20 UNITS QPM 08/23 2200 CAN SC Insulin Detemir 14 UNITS BID 08/23 2200 DC SC Insulin Detemir 15 UNITS BID 08/23 2200 AC 08/23 SC 2101 Insulin Detemir 15 UNITS ONCE ONE 08/23 1315 DC 0403 SC 04 1316 1502 Ipratropium [place] 2.5 ML EVERY 4 HRS/AWAKE 08/23 0815 AC 08/24 INH 0738 Losartan Potassium 25 MG DAILY 08/23 1000 AC 04 PO 1025 Methylprednisolone 40 MG Q12 08/24 1000 UNVr IV Methylprednisolone 40 MG Q12 08/23 2200 CAN IV Methylprednisolone 40 MG Q8 08/22 2200 DC 08/23 IV 0547 Omeprazole 40 MG BID 08/22 2200 AC 08/23 PO 2102 Oxycodone HCl 15 MG Q6 PRN 08/22 2145 AC 08/24 PO 0610 Patient Medication 1 UNIT 1000 08/24 1000 AC Teaching ED 08/24 1001 Patient Medication 1 ED .ST-MED ONE 08/23 1405 [place] Teaching ED 08/23 1406 Sertraline HCl 100 MG DAILY 08/23 1000 AC 08/23 PO 1022 Zolpidem Tartrate 10 MG QPM PRN 08/22 2330 AC PO Findings Pertinent Lab/Darren Results: Laboratory Tests 08/24 0615 Chemistry Sodium Pending Potassium Pending Chloride Pending Carbon Dioxide Pending Anion Gap Pending BUN Pending Creatinine Pending BUN/Creatinine Ratio Pending
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
--- NOTE | 2016-08-24 12:40 | PN- Pulmonary ---
Subjective HPI/Critical Care Issues: pt seen and examined cough productive of yellowish phlegm dyspnea slightly worse today at rest no n/v/d/c Objective Current Medications: Current Medications Sig/Elodia Start time Last Medication Dose Route Stop Time Status Admin Acetylcysteine 2 ML BID 08/24 1032 AC INH Albuterol Sulfate 3 ML EVERY 4 HRS/AWAKE 08/23 0815 AC 08/24 INH 0738 Amlodipine Besylate 10 MG DAILY 08/24 0000 AC 08/24 PO 0019 Aspirin Buffered 81 MG DAILY 08/23 1000 AC 08/24 PO 0846 Atorvastatin Calcium 80 MG 1700 08/23 1700 AC 08/23 PO 1934 Benzocaine/Menthol 1 SAUL Q2P PRN 08/23 0430 AC 08/24 PO 0358 Cyclobenzaprine HCl 5 MG .STK-MED ONE 08/23 1506 DC PO 08/23 1507 Cyclobenzaprine HCl 5 MG .STK-MED ONE 08/23 1454 DC PO 08/23 1455 Cyclobenzaprine HCl 10 MG TID PRN 08/23 0000 AC 08/24 PO 0847 Docusate Sodium 100 MG BID 08/24 1034 AC 08/24 PO 1213 Fluticasone 2 SPRAY DAILY 08/23 1000 AC 08/24 Propionate ARELY 0846 Guaifenesin 10 ML .STK-MED ONE 08/24 0115 DC PO 08/24 0116 Guaifenesin 600 MG Q12 08/23 2200 CAN PO Guaifenesin 600 MG Q12 08/23 1000 AC 08/24 PO 0846 Guaifenesin 10 ML Q4 08/23 0200 AC 08/24 PO 0844 Heparin Sodium 5,000 UNIT Q8 08/22 2316 AC 08/24 (Porcine) SC 0614 Hydrochlorothiazide 12.5 MG DAILY 08/23 1000 AC 08/24 PO 0846 Insulin Aspart 0 TIDAC/HS 08/23 1700 AC 08/24 SC 1213 Insulin Aspart 0 TIDAC 08/23 1200 DC SC Insulin Aspart 0 TIDAC 08/23 0800 DC 08/23 SC 1222 Insulin Detemir 20 UNITS QPM 08/23 2200 CAN SC Insulin Detemir 14 UNITS BID 08/23 2200 DC SC Insulin Detemir 15 UNITS BID 08/23 2200 AC 08/24 SC 0845 Insulin Detemir 15 UNITS ONCE ONE 08/23 1315 DC 08/23 SC 08/23 1316 1502 Ipratropium [place] 2.5 ML EVERY 4 HRS/AWAKE 08/23 0815 AC 08/24 INH 0738 Losartan Potassium 25 MG DAILY 08/23 1000 AC 08/24 PO 0845 Methylprednisolone 40 MG Q12 08/24 1000 AC 08/24 IV 0844 Methylprednisolone 40 MG Q12 08/23 2200 CAN IV Omeprazole 40 MG BID 08/22 2200 AC 08/24 PO 0846 Oxycodone HCl 15 MG Q6 PRN 08/22 2145 AC 08/24 PO 1214 Patient Medication 1 UNIT 1000 08/24 1000 DC 08/24 Teaching ED 08/24 1001 1049 Patient Medication 1 ED .ST-MED ONE 08/23 1405 [place] Teaching ED 08/23 1406 Polyethylene Glycol 17 GM DAILY 08/24 1033 AC 08/24 PO 1213 Sertraline HCl 100 MG DAILY 08/23 1000 AC 08/24 PO 1213 Zolpidem Tartrate 10 MG QPM PRN 08/22 2330 AC PO Vital Signs & I&O Last 24 Hrs of Vitals and I&O: Vital Signs Date Time Temp Pulse Resp B/P Pulse O2 O2 Flow FiO2 Ox Delivery Rate 08/24 0845 90 138/80 08/24 0800 Room Air 08/24 0742 97 Room Air 08/24 0655 98.0 90 20 138/80 96 Room Air 08/24 0019 90 156/86 08/24 0000 95 Room Air 08/23 2238 98.0 96 20 140/70 95 Room Air 08/23 1645 94 Room Air 08/23 1448 97.2 103 20 125/72 96 Intake & Output 08/24 1600 08/24 0800 08/24 0000 Intake Total 1000 1000 Output Total Balance 1000 1000 Intake, Oral 1000 1000 Exam Other Physical Findings: General - Alert, awake and oriented HEENT - normocephalic, atraumatic Cardiovascular - S1, S2 Lungs - rare rhonchi Abdomen - soft, bowel sounds positive, no tenderness Extremities - without edema or cyanosis Results Last 24 Hrs of Lab Results: Laboratory Tests 08/24/16 0615: Anion Gap 9, Estimated GFR > 60, BUN/Creatinine Ratio 27.0 H Impression/Plan Impression/Plan Impression/Plan: Impression 50 year old man * Acute exacerbation of asthma, possibly allergic vs URI component as a cause * Multiple pulmonary nodules * JO * tobacco dependence Plan * Solumedrol 40mg iv q12h continue today * send sputum culture * Mucomyst nebulized BID * aggressive glucose control * Peak flow q shift * TRC/Nebs - Albuterol/Atrovent * sleep apnea compliance to resume as outpatient DVT prophylaxis at all times
[2016-08-24 14:32] VITALS: BP 145/80
[2016-08-24 23:16] VITALS: BP 166/96
[2016-08-25 01:51] VITALS: BP 170/92
[2016-08-25 06:30] VITALS: BP 156/80
--- NOTE | 2016-08-25 07:49 | PN- Diabetes ---
Assessment/Plan Assessment: Has cough and wheezing. He continues on methylprednisolone 40 mg twice a day. His sugars late in the day yesterday he came elevated. This morning his fingerstick sugar is high at 294. Yesterday's blood sugars were 188 before breakfast, 200 before lunch, 220 before dinner, and to 97 at bedtime.. Plan: Patient's blood sugars are running high. Suggest increase Levemir to 20 units twice a day. In addition we will increase the patient's sliding scale NovoLog that is given before meals. Sliding-scale NovoLog before meals should be 80-150 give 8 units NovoLog, 151-200 give 10 units NovoLog, 201-250 give 12 units NovoLog, 251-300 give 14 units NovoLog, 301-350 give 16 units NovoLog, 351-400 give 18 units of NovoLog. Bedtime sliding-scale NovoLog can stay the same. Subjective Subjective: Still short of breath and coughing Review of Systems Constitutional: Denies: chills, fever. Cardiovascular: Denies: chest pain. Respiratory: Reports: cough, short of breath, wheezing. Gastrointestinal: Denies: abdominal pain, nausea, vomiting. Skin: Reports: no symptoms. Objective Last 24 Hrs of Vital Signs/I&O Vital Signs Date Time Temp Pulse Resp B/P Pulse O2 O2 Flow FiO2 Ox Delivery Rate 08/25 629 98.4 90 20 156/80 94 Room Air 08/25 0151 17008/25 0021 98 Room Air 08/24 2316 98.1 79 20 166/96 95 Room Air 08/24 1625 96 Room Air 08/24 1432 98.7 85 20 145/80 98 08/24 0845 90 138/80 08/24 0800 Room Air Intake & Output 08/25 0800 04/ 0000 08/24 1600 Intake Total 300 200 600 Output Total Balance 300 200 600 Intake, Oral 300 200 600 Number 0 Bowel Movements Vital Signs Date Time Temp Pulse Resp B/P Pulse O2 O2 Flow FiO2 Ox Delivery Rate 08/25 0530 98.4 90 20 156/80 94 Room Air 08/25 0151 170/08/25 0021 98 Room Air 08/24 2316 98.1 79 20 166/96 95 Room Air 08/24 1625 96 Room Air 08/24 1432 98.7 85 20 145/80 98 04/04 0845 90 138/80 08/24 0800 Room Air Intake & Output / 0800 04/05 0000 08/24 1600 Intake Total 300 200 600 Output Total Balance 300 200 600 Intake, Oral 300 200 600 Number 0 Bowel Movements Physical Exam General Appearance: alert, awake, moderate distress Head: normal appearance Respiratory: wheezing Cardiovascular: regular rate/rhythm Abdomen: normal bowel sounds Extremities: normal inspection Current Medications: Current Medications Sig/Elodia Start time Last Medication Dose Route Stop Time Status Admin Acetaminophen 650 MG ONCE ONE 08/24 2330 DC 08/24 PO 08/24 2331 2351 Acetylcysteine 2 ML BID 08/24 1032 AC 08/24 INH 1943 Albuterol Sulfate 3 ML EVERY 4 HRS/AWAKE 08/23 0815 AC 08/25 INH 0002 Amlodipine Besylate 10 MG DAILY 08/24 0000 AC 08/24 PO 0019 Aspirin Buffered 81 MG DAILY 08/23 1000 AC 08/24 PO 0846 Atorvastatin Calcium 80 MG 1700 08/23 1700 AC 08/24 PO 1746 Benzocaine/Menthol 1 SAUL Q2P PRN 08/23 0430 AC 08/24 PO 2150 Cyclobenzaprine HCl 10 MG TID PRN 08/23 0000 AC 08/24 PO 2349 Docusate Sodium 100 MG BID 08/24 1034 AC 08/24 PO 2142 Fluticasone 2 SPRAY DAILY 08/23 1000 AC 08/24 Propionate ARELY 0846 Guaifenesin 10 ML .STK-MED ONE 08/24 2136 DC PO 08/24 2137 Guaifenesin 10 ML .STK-MED ONE 08/24 1742 DC PO 08/24 1743 Guaifenesin 10 ML .STK-MED ONE 08/24 1442 DC PO 08/24 1443 Guaifenesin 10 ML .STK-MED ONE 08/24 0839 DC PO 08/24 0840 Guaifenesin 600 MG Q12 / 1000 AC 08/24 PO 2144 Guaifenesin 10 ML Q4 08/23 0200 AC 08/25 PO 0613 Heparin Sodium 5,000 UNIT Q8 08/22 2316 AC 08/25 (Porcine) SC 0614 Hydrochlorothiazide 12.5 MG DAILY 04/ 1000 AC 08/24 PO 0846 Insulin Aspart 0 TIDAC/HS 08/23 1700 AC 08/24 SC 2145 Insulin Detemir 15 UNITS BID 08/23 2200 AC 08/24 SC 2142 Ipratropium [place] 2.5 ML BID 08/24 2200 AC 08/25 INH 0001 Ipratropium [place] 2.5 ML EVERY 4 HRS/AWAKE 08/23 0815 DC 08/24 INH 1616 Losartan Potassium 25 MG DAILY 08/23 1000 AC 08/24 PO 0845 Methylprednisolone 40 MG Q12 08/24 1000 AC 08/24 IV 2142 Omeprazole 40 MG BID 08/22 2200 AC 08/24 PO 2145 Oxycodone HCl 15 MG Q6 PRN 08/22 2145 AC 08/25 PO 0627 Patient Medication 1 ED .STK-MED ONE 08/24 1346 [place] Teaching ED 08/24 1347 Patient Medication 1 UNIT 1000 08/24 1000 [place] 08/24 Teaching ED 08/24 1001 1049 Polyethylene Glycol 17 GM DAILY 08/24 1033 AC 08/24 PO 1213 Sertraline HCl 100 MG DAILY 08/23 1000 AC 08/24 PO 1213 Zolpidem Tartrate 10 MG QPM PRN 08/22 2330 AC 08/24 PO 2348
--- NOTE | 2016-08-25 08:09 | PN- Housestaff ---
Assessment/Plan Assessment: Pt is a 50-year-old gentleman with a significant medical history of asthma, seasonal allergies, active smoking, obesity, obstructive sleep apnea on CPAP, and occupational exposure to dust and possible asbestosis while doing [place], presents with symptoms and signs suggestive of an acute asthma exacerbation. Assessment and plan #Asthma exacerbation Minimal changes in respratory status. Still in acute phase of exacebartin withpersistent cough, shortness of breath,b/l wheezes and mild pause when talking. Pt is not ready to trasition to oral steroids. Will continue Solumedrl 40mg q 12h and add mucomyst in additin to mucinex and TRC/nebs. #Type 2 diabetes with uncontrolled hyperglycemia. Will institute Levemir 14 units twice a day and NovoLog sliding scale per endocrine recommendation (appreciated). While in hospitalization Will hold Cozaar, metformin, sulfonylurea. We'll continue with Accu-Cheks 3 times a day and bedtime #JO Patient was in the process of getting CPAP fitted. Might consider nocturnal CPAP if patient respiratory status deteriorates. #Hematemesis Transient episode last reported 3 days ago. Currently patient does not endorse any new acute event and his H&H is stable. We'll hold off any NSAIDs.
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
--- NOTE | 2016-08-25 10:47 | PN- Pulmonary ---
Subjective HPI/Critical Care Issues: pt seen and examined doing slightly better still with cough, now more dry on mucomyst no fevers significant wheezing is improved and dyspnea stable Objective Current Medications: Current Medications Sig/Elodia Start time Last Medication Dose Route Stop Time Status Admin Acetaminophen 650 MG ONCE ONE 08/24 2330 DC 04 PO 08/24 2331 2351 Acetylcysteine 2 ML BID 08/24 1032 AC 08/25 INH 0814 Albuterol Sulfate 3 ML EVERY 4 HRS/AWAKE 08/23 0815 AC 08/25 INH 0812 Amlodipine Besylate 10 MG DAILY 08/24 0000 AC 04 PO 1010 Aspirin Buffered 81 MG DAILY 08/23 1000 AC 08/25 PO 1010 Atorvastatin Calcium 80 MG 1700 08/23 1700 AC 08/24 PO 1746 Benzocaine/Menthol 1 SAUL Q2P PRN 08/23 0430 AC 08/24 PO 2150 Cyclobenzaprine HCl 10 MG TID PRN 08/23 0000 AC 08/25 PO 0811 Docusate Sodium 100 MG BID 08/24 1034 AC 08/25 PO 1008 Fluticasone 2 SPRAY DAILY 08/23 1000 AC 08/25 Propionate ARELY 1011 Guaifenesin 20 ML .STK-MED ONE 08/25 0145 DC PO 08/25 0146 Guaifenesin 10 ML .STK-MED ONE 08/24 2136 DC PO 08/24 2137 Guaifenesin 10 ML .STK-MED ONE 08/24 1742 DC PO 08/24 1743 Guaifenesin 10 ML .STK-MED ONE 08/24 1442 DC PO 08/24 1443 Guaifenesin 600 MG Q12 08/23 1000 AC 08/25 PO 1010 Guaifenesin 10 ML Q4 08/23 0200 AC 04 PO 1010 Heparin Sodium 5,000 UNIT Q8 08/22 2316 AC 08/25 (Porcine) SC 0614 Hydrochlorothiazide 12.5 MG DAILY 08/23 1000 AC 08/25 PO 1010 Insulin Aspart 0 TIDAC/HS 08/23 1700 AC 04 SC 0810 Insulin Detemir 20 UNITS BID 08/25 1000 AC 08/25 SC 1008 Insulin Detemir 15 UNITS BID 08/23 2200 DC 08/24 SC 2142 Ipratropium [place] 2.5 ML BID 08/24 2200 AC 08/25 INH 0001 Ipratropium [place] 2.5 ML EVERY 4 HRS/AWAKE 08/23 0815 DC 08/24 INH 1616 Losartan Potassium 25 MG DAILY 08/23 1000 AC 08/25 PO 1010 Methylprednisolone 40 MG Q12 08/24 1000 DC 08/24 IV 2142 Omeprazole 40 MG BID 08/22 2200 AC 08/25 PO 1010 Oxycodone HCl 15 MG Q6 PRN 08/22 2145 AC 08/25 PO 0627 Patient Medication 1 ED .STK-MED ONE 08/24 1346 DC Teaching ED 08/24 1347 Polyethylene Glycol 17 GM DAILY 08/24 1033 AC 08/25 PO 1008 Prednisone 60 MG ONCE ONE 08/25 1000 DC 08/25 PO 08/25 1001 1008 Sertraline HCl 100 MG DAILY 08/23 1000 AC 08/25 PO 1009 Zolpidem Tartrate 10 MG QPM PRN 08/22 2330 AC 08/24 PO 2348 Vital Signs & I&O Last 24 Hrs of Vitals and I&O: Vital Signs Date Time Temp Pulse Resp B/P Pulse O2 O2 Flow FiO2 Ox Delivery Rate 08/25 1010 92 160/80 08/25 1010 92 160/80 08/25 0827 94 Room Air 08/25 0800 Room Air / 0630 98.4 90 20 156/80 94 Room Air / 0151 170/92 04/ 0021 98 Room Air / 2316 98.1 79 20 166/96 95 Room Air 08/24 1625 96 Room Air 08/24 1432 98.7 85 20 145/80 98 Intake & Output 08/25 1600 08/25 0800 04/ 0000 Intake Total 300 200 Output Total Balance 300 200 Intake, Oral 300 200 Exam Other Physical Findings: General - Alert, awake and oriented HEENT - normocephalic, atraumatic Cardiovascular - S1, S2 Lungs - rare rhonchi Abdomen - soft, bowel sounds positive, no tenderness Extremities - without edema or cyanosis Results Last 24 Hrs of Lab Results: Laboratory Tests 08/25/16 0702: Anion Gap 10, Estimated GFR > 60, BUN/Creatinine Ratio 25.0 Impression/Plan Impression/Plan Impression/Plan: Impression 50 year old man * Acute exacerbation of asthma, possibly allergic vs URI component as a cause * Multiple pulmonary nodules * JO * tobacco dependence Plan * dc solumedrol * prednisone 60x3, 50x3, 40x3, 20x3, 10x3 then stop * sputum culture * Mucomyst nebulized BID * aggressive glucose control * Peak flow q shift * TRC/Nebs - Albuterol/Atrovent * sleep apnea compliance to resume as outpatient DVT prophylaxis at all times
[2016-08-25 14:59] VITALS: BP 168/84
[2016-08-25 22:28] VITALS: BP 152/74
--- NOTE | 2016-08-26 02:24 | NUR ---
LYME TITRE POSITIVE. NOTIFIED LYNNE ERNANDEZ MD.
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
[2016-08-26 07:40] VITALS: BP 150/70
--- NOTE | 2016-08-26 07:51 | PN- Diabetes ---
Assessment/Plan Assessment: Has cough and wheezing. He continues on methylprednisolone 40 mg twice a day. His sugars late in the day yesterday he came elevated. This morning his fingerstick sugar is high at 294. Agents blood sugar was only 77 this morning. Plan: Suggest reduce the Levemir back to 15 units twice a day. Continue present sliding-scale NovoLog. Subjective Subjective: Feels about the same Objective Last 24 Hrs of Vital Signs/I&O Vital Signs Date Time Temp Pulse Resp B/P Pulse O2 O2 Flow FiO2 Ox Delivery Rate / 0740 97.9 81 20 150/70 93 Room Air 04/05 2228 98.2 84 20 152/74 92 04/05 1625 93 Room Air 04/05 1600 Room Air 04/ 1459 98.1 82 20 168/84 97 04/05 1151 95 Room Air 04/05 1010 92 160/80 04/05 1010 92 160/80 04/05 0827 94 Room Air 04/ 0800 Room Air Intake & Output 08/26 0800 / 0000 04/ 1600 Intake Total 431 614 3305 Output Total 750 Balance 490 250 450 Intake, IV 10 10 Intake, Oral 920 044 0054 Number 1 Bowel Movements Output, Urine 750 Vital Signs Date Time Temp Pulse Resp B/P Pulse O2 O2 Flow FiO2 Ox Delivery Rate / 0740 97.9 81 20 150/70 93 Room Air 04/ 2228 98.2 84 20 152/74 92 04/05 1625 93 Room Air 04/05 1600 Room Air 04/05 1459 98.1 82 20 168/84 97 04/05 1151 95 Room Air 04/05 1010 92 160/80 04/05 1010 92 160/80 04/05 0827 94 Room Air 04/05 0800 Room Air Intake & Output /06 0800 /06 0000 04/05 1600 Intake Total 248 540 8201 Output Total 750 Balance 490 250 450 Intake, IV 10 10 Intake, Oral 400 552 8644 Number 1 Bowel Movements Output, Urine 750 Physical Exam General Appearance: alert, awake, anxious Neck: normal inspection Respiratory: normal breath sounds Abdomen: normal bowel sounds Extremities: normal inspection Current Medications: Current Medications Sig/Elodia Start time Last Medication Dose Route Stop Time Status Admin Acetylcysteine 2 ML BID 08/24 1032 AC 08/25 INH 1625 Albuterol Sulfate 3 ML EVERY 4 HRS/AWAKE 04/03 0815 AC 04/05 INH 2030 Amlodipine Besylate 10 MG DAILY 04/ 0000 AC 04 PO 1010 Aspirin Buffered 81 MG DAILY 04/03 1000 AC 08/25 PO 1010 Atorvastatin Calcium 80 MG 1700 04/ 1700 AC 04/ PO 1702 Benzocaine/Menthol 1 SAUL Q2P PRN 08/23 0430 AC 04 PO 1433 Bisacodyl 5 MG DAILY PRN 08/25 1915 AC 08/25 PO 2102 Cyclobenzaprine HCl 10 MG .STK-MED ONE 08/25 1423 DC PO 08/25 1424 Cyclobenzaprine HCl 10 MG TID PRN 08/23 0000 AC 08/26 PO 0230 Docusate Sodium 100 MG BID 08/24 1034 AC 08/25 PO 2102 Fluticasone 2 SPRAY DAILY 08/23 1000 AC 08/25 Propionate ARELY 1011 Guaifenesin 600 MG Q12 08/23 1000 AC 08/25 PO 2102 Guaifenesin 10 ML Q4 08/23 0200 AC 08/26 PO 0557 Heparin Sodium 5,000 UNIT Q8 08/22 2316 AC 08/26 (Porcine) SC 0557 Hydrochlorothiazide 12.5 MG DAILY 08/23 1000 AC 08/25 PO 1010 Insulin Aspart 0 TIDAC/HS 04/ 1700 AC 08/25 SC 2219 Insulin Detemir 20 UNITS BID 08/25 1000 AC 08/25 SC 2217 Insulin Detemir 15 UNITS BID 08/23 2200 DC 08/24 SC 2142 Ipratropium [place] 2.5 ML BID 04 2200 AC 04/05 INH 2030 Losartan Potassium 25 MG DAILY 08/23 1000 AC 08/25 PO 1010 Methylprednisolone 40 MG Q12 08/24 1000 DC 08/24 IV 2142 Omeprazole 40 MG BID 08/22 2200 AC 08/25 PO 2102 Oxycodone HCl 15 MG Q6 PRN 08/22 2145 AC 08/26 PO 0556 Patient Medication 1 ED .STK-MED ONE 08/25 1335 DC Teaching ED 08/25 1336 Polyethylene Glycol 17 GM DAILY 08/24 1033 AC / PO 1008 Prednisone 60 MG ONCE ONE 08/25 1000 DC 04/05 PO 0405 1001 1008 Sertraline HCl 100 MG DAILY 08/23 1000 AC 08/25 PO 1009 Zolpidem Tartrate 10 MG QPM PRN 08/22 2330 AC 08/24 PO 2341
[2016-08-26] MEDS ORDERED: PREDNISONE10 M2 PO (08:47)
[2016-08-26] MEDS ORDERED: MUCINEX600 M1 PO (08:47)
--- NOTE | 2016-08-26 08:50 | Patient Discharge Instructions ---
Discharge Instructions General Discharge Information You were seen/treated for: Asthma Attack Special Instructions: Please seee immediate medical attention if you develop increased shortness of breath/chest tightness Please complete the prednisone taper course Please check your blood sugars more frequent than your normal schedule while you are on prednisone (this medication has a tendency to increase your sugars) Please follow up with your primary care within 1 week Please follow up with Dr RAMOS WITHIN 1 WEEK (Pulmonology) Please follow up with your depot agent (Dr Kraus) within 1 week Your initial Lyme test is positive for exposure (it could be from old infection) , the second test is pending, we will notify you of the results if they are positive Diet Recommended Diet: Diabetic Acute Coronary Syndrome Inclusion Criteria At DC or during hospital stay patient has or had the following: ACS DIAGNOSIS No Discharge Core Measures Meds if any: Prescribed or Continued at Discharge Meds if any: NOT Prescribed or Continued at Discharge Congestive Heart Failure Inclusion Criteria At DC or during hospital stay patient has or had the following: CHF DIAGNOSIS No Discharge Core Measures Meds if any: Prescribed or Continued at Discharge Meds if any: NOT Prescribed or Continued at Discharge Cerebrovascular accident Inclusion Criteria At DC or during hospital stay patient has or had the following: CVA/TIA Diagnosis No Discharge Core Measures Meds if any: Prescribed or Continued at Discharge Meds if any: NOT Prescribed or Continued at Discharge Venous thromboembolism Inclusion Criteria VTE Diagnosis No VTE Type NONE VTE Confirmed by (Test) NONE Discharge Core Measures - Per Current guidelines, there needs to be overlap - treatment for the first 5 days of Warfarin therapy. - If discharged on Warfarin prior to 5 days of - overlap therapy, the patient will need to be - assessed for post discharge needs including - *Post discharge parental anticoagulation - *Warfarin and/or parental anticoagulation education - *Follow up date to check INR post discharge At least 5 days overlap therapy as Inpatient No Meds if any: Prescribed or Continued at Discharge Note: Overlap Therapy is Warfarin and Anticoagulant Meds if any: NOT Prescribed or Continued at Discharge
--- NOTE | 2016-08-26 11:44 | PN- Pulmonary ---
Subjective HPI/Critical Care Issues: pt seen and examined a significant amount of phlegm/sputum is being produced mucomyst seems to be helping no n/v/d/c no cp Objective Current Medications: Current Medications Sig/Elodia Start time Last Medication Dose Route Stop Time Status Admin Acetylcysteine 2 ML BID 08/24 1032 AC 04 INH 0812 Albuterol Sulfate 3 ML EVERY 4 HRS/AWAKE 04/ 0815 AC 08/26 INH 0813 Amlodipine Besylate 10 MG DAILY 08/24 0000 AC 08/26 PO 1102 Aspirin Buffered 81 MG DAILY 08/23 1000 AC 08/26 PO 1103 Atorvastatin Calcium 80 MG 1700 08/23 1700 AC 08/25 PO 1702 Benzocaine/Menthol 1 SAUL Q2P PRN 08/23 0430 AC 08/25 PO 1433 Bisacodyl 5 MG DAILY PRN 08/25 1915 AC 08/25 PO 2102 Cyclobenzaprine HCl 10 MG .STK-MED ONE 08/26 0226 DC PO 08/26 0227 Cyclobenzaprine HCl 10 MG .STK-MED ONE 08/25 1423 DC PO 04 1424 Cyclobenzaprine HCl 10 MG TID PRN 08/23 0000 AC 08/26 PO 1104 Docusate Sodium 100 MG BID 08/24 1034 AC 08/26 PO 1103 Fluticasone 2 SPRAY DAILY 08/23 1000 AC 08/26 Propionate ARELY 1104 Guaifenesin 600 MG Q12 08/23 1000 AC 08/26 PO 1102 Guaifenesin 10 ML Q4 08/23 0200 AC 08/26 PO 1101 Heparin Sodium 5,000 UNIT Q8 08/22 2316 AC 08/26 (Porcine) SC 0557 Hydrochlorothiazide 12.5 MG DAILY 08/23 1000 AC 08/26 PO 1104 Insulin Aspart 0 TIDAC/HS 04/ 1700 AC 08/25 SC 2219 Insulin Detemir 20 UNITS BID 08/25 1000 AC 08/26 SC 1102 Ipratropium [place] 2.5 ML BID 08/24 2200 AC 04 INH 2030 Losartan Potassium 25 MG DAILY / 1000 AC 08/26 PO 1103 Omeprazole 40 MG BID 08/22 2200 AC 08/26 PO 1101 Oxycodone HCl 15 MG Q6 PRN 08/22 2145 AC 08/26 PO 0556 Patient Medication 1 ED .STK-MED ONE 08/25 1335 DC Teaching ED 08/25 1336 Polyethylene Glycol 17 GM DAILY 08/24 1033 AC 08/26 PO 1101 Prednisone 60 MG ONCE ONE 08/26 0930 DC 08/26 PO 08/26 0931 1103 Sertraline HCl 100 MG DAILY 08/23 1000 AC 08/26 PO 1102 Zolpidem Tartrate 10 MG QPM PRN 08/22 2330 AC 08/24 PO 2348 Vital Signs & I&O Last 24 Hrs of Vitals and I&O: Vital Signs Date Time Temp Pulse Resp B/P Pulse O2 O2 Flow FiO2 Ox Delivery Rate 08/26 1103 88 140/82 08/26 1102 88 140/82 08/26 0816 97 Room Air 08/26 0740 97.9 81 20 150/70 93 Room Air 08/25 2228 98.2 84 20 152/74 92 08/25 1625 93 Room Air 08/25 1600 Room Air 08/25 1459 98.1 82 20 168/84 97 05 1151 95 Room Air Intake & Output 08/26 1600 08/26 0800 04/ 0000 Intake Total 490 250 Output Total Balance 490 250 Intake, IV 10 10 Intake, Oral 480 240 Number 1 Bowel Movements Exam Other Physical Findings: General - Alert, awake and oriented HEENT - normocephalic, atraumatic Cardiovascular - S1, S2 Lungs - significant rhonchi Abdomen - soft, bowel sounds positive, no tenderness Extremities - without edema or cyanosis Impression/Plan Impression/Plan Impression/Plan: Impression 50 year old man * Acute exacerbation of asthma, possibly allergic vs URI component as a cause * Multiple pulmonary nodules * JO * tobacco dependence Plan * continue prednisone 60x3, 50x3, 40x3, 20x3, 10x3 then stop * sputum culture * add chest physiotherapy - please d/w RT * Mucomyst nebulized BID * aggressive glucose control * Peak flow q shift * TRC/Nebs - Albuterol/Atrovent * sleep apnea compliance to resume as outpatient DVT prophylaxis at all times
[2016-08-26 14:09] VITALS: BP 156/84
--- NOTE | 2016-08-26 18:56 | NUR ---
MEDS SCANNED AT 1620 SUBMITTED BUT DID NOT GO THROUGH, RESUBMITTED A SECOND TIME. [employer]Y'S ADVISER GARTH AWARE OF COMPUTER ERROR.
--- NOTE | 2016-08-26 23:18 | NUR ---
PT IV DUE TO BE OUTDATED TODAY. THIS RN CALLED MD ERNANDEZ. STATED IT WAS OKAY FOR PATIENT TO NOT HAVE IV ACCESS ANYMORE SINCE PATIENT IS SUPPOSED TO BE DISCHARGED TOMORROW AND HAS NO IV MEDS ORDERED. WILL CONTINUE TO MONITOR.
[2016-08-26 23:50] VITALS: BP 170/92
[2016-08-27 00:51] VITALS: BP 164/80
[2016-08-27 07:29] VITALS: BP 154/80
--- NOTE | 2016-08-27 07:46 | PN- Diabetes ---
Assessment/Plan Assessment: Has cough and wheezing. He received 60 mg of prednisone I mouth yesterday in the a.m. His sugars late in the day yesterday he came elevated. This morning his fingerstick sugar is down to 123.. Patient states he feels improved. He has less wheezing. Plan: I am not sure how much prednisone the patient is going to receive today or how much prednisone he will be discharged on if he goes home. Prior to admission the patient was on Victoza 1.8 mg daily, Levemir 18 units once a day, metformin 1000 mg twice a day, and glimeperide 4 mg twice a day. Patient was also on prednisone 10 mg once a day. If patient does not go home on high-dose prednisone, he could simply resume his medications for diabetes as he was taking them before this hospitalization. He would need to check his sugars and be in touch with the office if they are high. If he goes home on high-dose prednisone once a day he could take all the medications above except he would eliminate the glimeperide and use the present sliding-scale NovoLog before meals only. Subjective Subjective: Feels improved Review of Systems Constitutional: Denies: chills, fever. Cardiovascular: Denies: chest pain. Respiratory: Reports: cough, wheezing. Gastrointestinal: Denies: nausea, vomiting. Skin: Reports: no symptoms. Objective Last 24 Hrs of Vital Signs/I&O Vital Signs Date Time Temp Pulse Resp B/P Pulse O2 O2 Flow FiO2 Ox Delivery Rate 08/27 728 97.9 81 20 154/80 92 Room Air 08/27 0051 164/80 04/ 0004 95 Room Air 08/27 0000 95 Room Air 08/26 2350 97.9 82 20 170/92 95 Room Air 04/ 1600 Room Air 04/ 1555 93 Room Air 08/26 1409 98.0 86 20 156/84 90 04/06 1103 88 140/82 04/06 1102 88 140/82 04/ 0816 97 Room Air 08/26 0800 Room Air Intake & Output 08/27 0800 04/07 0000 04/06 1600 Intake Total 480 800 800 Output Total Balance 480 800 800 Intake, Oral 480 800 800 Vital Signs Date Time Temp Pulse Resp B/P Pulse O2 O2 Flow FiO2 Ox Delivery Rate 08/27 0629 97.9 81 20 154/80 92 Room Air 04/07 0051 164/80 04/07 0004 95 Room Air 04/07 0000 95 Room Air 04/06 2350 97.9 82 20 170/92 95 Room Air 04/06 1600 Room Air 04/ 1555 93 Room Air 04/ 1409 98.0 86 20 156/84 90 04/06 1103 88 140/82 04/ 1102 88 140/82 04/06 0816 97 Room Air 04/ 0800 Room Air Intake & Output 08/27 0800 04/07 0000 04/ 1600 Intake Total 480 800 800 Output Total Balance 480 800 800 Intake, Oral 480 800 800 Physical Exam General Appearance: alert, awake, comfortable Head: normal appearance Neck: normal inspection Respiratory: normal breath sounds Cardiovascular: regular rate/rhythm Abdomen: normal bowel sounds Extremities: normal inspection Current Medications: Current Medications Sig/Elodia Start time Last Medication Dose Route Stop Time Status Admin Acetylcysteine 2 ML BID 08/24 1032 AC 08/26 INH 1555 Albuterol Sulfate 3 ML EVERY 4 HRS/AWAKE 08/23 0815 AC 08/27 INH 0445 Amlodipine Besylate 10 MG DAILY 08/24 0000 AC 08/26 PO 1102 Aspirin Buffered 81 MG DAILY 04/ 1000 AC 08/26 PO 1103 Atorvastatin Calcium 80 MG 1700 04/ 1700 AC 08/26 PO 1818 Benzocaine/Menthol 1 SAUL Q2P PRN 04/ 0430 AC 08/27 PO 0429 Bisacodyl 5 MG DAILY PRN 04/ 1915 AC 04 PO 2102 Cyclobenzaprine HCl 10 MG TID PRN 04/ 0000 AC 08/27 PO 0015 Docusate Sodium 100 MG BID 08/24 1034 AC 04 PO 2143 Fluticasone 2 SPRAY DAILY / 1000 AC 08/26 Propionate ARELY 1104 Guaifenesin 600 MG Q12 04/ 1000 AC / PO 2143 Guaifenesin 10 ML Q4 04/ 0200 AC 08/27 PO 0426 Heparin Sodium 5,000 UNIT Q8 / 2316 AC 08/27 (Porcine) SC 0426 Hydrochlorothiazide 12.5 MG DAILY 04/ 1000 AC 04 PO 1104 Insulin Aspart 0 TIDAC/HS 04/ 1700 AC 08/26 SC 2142 Insulin Detemir 20 UNITS BID 04/ 1000 AC 08/26 SC 2143 Ipratropium [place] 2.5 ML BID 08/24 2200 AC 08/27 INH 0446 Lidocaine 1 PAT DAILY 08/26 1149 AC 08/26 EXT 1615 Losartan Potassium 25 MG DAILY 08/23 1000 AC 08/26 PO 1103 Omeprazole 40 MG BID 08/22 2200 AC 08/26 PO 2143 Oxycodone HCl 15 MG Q4-6 PRN PRN 08/26 1200 AC 08/27 PO 0426 Oxycodone HCl 15 MG Q6 PRN 08/22 2145 DC 08/26 PO 0556 Phenol 2 SPRAY Q4 HRS NEEDED PRN 08/26 1200 AC EXT Polyethylene Glycol 17 GM DAILY 08/24 1033 AC 08/26 PO 1101 Prednisone 60 MG ONCE ONE 08/26 0930 DC 08/26 PO 08/26 0931 1103 Sertraline HCl 100 MG DAILY 08/23 1000 AC 08/26 PO 1102 Zolpidem Tartrate 10 MG QPM PRN 08/22 2330 AC 08/27 PO 0014
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
[2016-08-27] MEDS ORDERED: PREDNISONE10 M2 PO (08:24)
[2016-08-27 09:26] VITALS: BP 158/88
--- NOTE | 2016-08-27 10:25 | PN- Pulmonary ---
Subjective HPI/Critical Care Issues: pt seen and examined feeling better congestion improved can likely be dc no new events afebrile no n/v/d/c no cp no zaman Objective Current Medications: Current Medications Sig/Elodia Start time Last Medication Dose Route Stop Time Status Admin Acetylcysteine 2 ML BID 08/24 1032 AC 08/27 INH 0816 Albuterol Sulfate 3 ML EVERY 4 HRS/AWAKE 08/23 0815 AC 08/27 INH 0816 Amlodipine Besylate 10 MG DAILY 08/24 0000 AC 08/27 PO 0926 Aspirin Buffered 81 MG DAILY 08/23 1000 AC 08/27 PO 0926 Atorvastatin Calcium 80 MG 1700 08/23 1700 AC 08/26 PO 1818 Benzocaine/Menthol 1 SAUL Q2P PRN 08/23 0430 AC 08/27 PO 0429 Bisacodyl 5 MG DAILY PRN 08/25 1915 AC 08/25 PO 2102 Cyclobenzaprine HCl 10 MG TID PRN 08/23 0000 AC 08/27 PO 0015 Docusate Sodium 100 MG BID 08/24 1034 AC 08/27 PO 0925 Fluticasone 2 SPRAY DAILY 08/23 1000 AC 08/27 Propionate ARELY 0926 Guaifenesin 600 MG Q12 08/23 1000 AC 08/27 PO 0924 Guaifenesin 10 ML Q4 08/23 0200 AC 08/27 PO 0916 Heparin Sodium 5,000 UNIT Q8 08/22 2316 AC 08/27 (Porcine) SC 0426 Hydrochlorothiazide 12.5 MG DAILY 08/23 1000 AC 08/27 PO 0926 Insulin Aspart 0 TIDAC/HS 08/23 1700 AC 08/27 SC 0802 Insulin Detemir 20 UNITS BID 08/25 1000 AC 08/27 SC 0932 Ipratropium [place] 2.5 ML BID 08/24 2200 AC 08/27 INH 0816 Lidocaine 1 PAT DAILY 08/26 1149 AC 08/27 EXT 0925 Losartan Potassium 25 MG DAILY 08/23 1000 AC 08/27 PO 0926 Omeprazole 40 MG BID 08/22 2200 AC 08/27 PO 0924 Oxycodone HCl 15 MG Q4-6 PRN PRN 08/26 1200 AC 08/27 PO 0917 Oxycodone HCl 15 MG Q6 PRN 08/22 2145 DC 08/26 PO 0556 Phenol 2 SPRAY Q4 HRS NEEDED PRN 08/26 1200 AC EXT Polyethylene Glycol 17 GM DAILY 08/24 1033 AC 08/27 PO 0916 Prednisone 60 MG ONCE ONE 08/27 829 DC 08/27 PO 08/27 0831 0926 Sertraline HCl 100 MG DAILY 08/23 1000 AC 08/27 PO 0924 Zolpidem Tartrate 10 MG QPM PRN 08/22 2330 AC 08/27 PO 0014 Vital Signs & I&O Last 24 Hrs of Vitals and I&O: Vital Signs Date Time Temp Pulse Resp B/P Pulse O2 O2 Flow FiO2 Ox Delivery Rate 08/27 925 158/88 08/27 0926 158/88 08/27 0817 94 Room Air Room Air 08/27 0729 97.9 81 20 154/80 92 Room Air 08/27 0051 164/80 08/27 0004 95 Room Air 08/27 0000 95 Room Air 08/26 2350 97.9 82 20 170/92 95 Room Air 08/26 1600 Room Air 08/26 1555 93 Room Air 08/26 1409 98.0 86 20 156/84 90 08/26 1103 88 140/82 04 1102 88 140/82 Intake & Output 08/27 1600 08/27 0800 08/27 0000 Intake Total 480 800 Output Total Balance 480 800 Intake, Oral 480 800 Patient 340 lb Weight Exam Other Physical Findings: General - Alert, awake and oriented HEENT - normocephalic, atraumatic Cardiovascular - S1, S2 Lungs - significant rhonchi Abdomen - soft, bowel sounds positive, no tenderness Extremities - without edema or cyanosis Impression/Plan Impression/Plan Impression/Plan: Impression 50 year old man * Acute exacerbation of asthma, possibly allergic vs URI component as a cause * Multiple pulmonary nodules * JO * tobacco dependence Plan * continue prednisone taper as ordered - 60x3, 50x3, 40x3, 20x3, 10x3 then stop * aggressive glucose control * Peak flow q shift * TRC/Nebs - Albuterol/Atrovent * sleep apnea compliance to resume as outpatient DVT prophylaxis at all times DC planning
--- NOTE | 2016-08-27 12:09 | NUR ---
0800- PEAK FLOW: 250
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
[2016-11-08] MEDS ORDERED: HYDROCHLOROTHIA25 M1 PO (22:39)
[2016-11-08] MEDS ORDERED: COZAAR50 M1 PO (22:39)
[2016-11-08] MEDS ORDERED: NAPROXEN500 M2 PO (22:40)
[2016-11-08] MEDS ORDERED: ALBUTEROL2.5 MG/3 M INH/SOL (22:41)
[2016-11-08] MEDS ORDERED: LEVEMIR FL100 UNIT/1 SC (22:41)
[2016-11-09] MEDS ORDERED: AUGMENTIN 875-1 EACH PO (00:03)
== END 2016-08-27 14:23 | DRG 141 ==
LOC: ENRESERVDT → ENRESERVTM → ERH 16:19 → ERHI 22:18 → 2NA 22:18 → ENPENDDIS 22:18 → 2NA 22:18
PROVIDERS: Physician Assistant Medical; ADMIT Internal Medicine
DX: J45.901 Unspecified asthma with (acute) exacerbation (principal); Z68.41 Body mass index [BMI] 40.0-44.9, adult; E66.01 Morbid (severe) obesity due to excess calories; E11.65 Type 2 diabetes mellitus with hyperglycemia; I10 Essential (primary) hypertension; E78.5 Hyperlipidemia, unspecified; K21.9 Gastro-esophageal reflux disease without esophagitis; G47.33 Obstructive sleep apnea (adult) (pediatric); D50.9 Iron deficiency anemia, unspecified; M54.9 Dorsalgia, unspecified; G89.29 Other chronic pain; Z79.4 Long term (current) use of insulin; F17.200 Nicotine dependence, unspecified, uncomplicated; R91.8 Other nonspecific abnormal finding of lung field
CPT/HCPCS: 2NAP; 86618; 82436; 87040; 87070; 87804; 87804-59; 93005; 93010; 94644; 96365; 96366; 96372; 96375; 99291; J1644; J2920; J2930; J7608

== ENCOUNTER 2016-08-29 23:32 | Inpatient (IN) | payer OTHER ==
[~2016-08-29] VITALS: Ht 193 cm; Wt 154.2 kg
[~2016-08-29 23:32] MED LIST changes: +COZAAR25 M1 PO; +MUCINEX600 M1 PO
--- NOTE | 2016-08-30 00:09 | ED DYSPNEA/ASTHMA COMPLAINT ---
History of Present Illness General Chief Complaint: Wheezing/Asthma Stated Complaint: ASTHMA Source: patient Exam Limitations: no limitations Vital Signs & Intake/Output Vital Signs & Intake/Output Vital Signs Date Time Temp Pulse Resp B/P Pulse O2 O2 Flow FiO2 Ox Delivery Rate 08/30 0130 Room Air 08/30 0007 99.8 111 20 170/89 96 Room Air Allergies Coded Allergies: NO KNOWN ALLERGIES (02/03/15) Reconcile Medications Albuterol Sulfate (Ventolin Hfa) 90 MCG HFA.AER.AD 2 PUF INH Q4-6 PRN PRN WHEEZING Amlodipine Besylate 10 MG TABLET 1 TAB PO DAILY BP (Reported) Aspirin (Ecotrin*) 81 MG TABLET.DR 1 TAB PO DAILY HEART/BLOOD (Reported) Codeine Phosphate/Guaifenesi (Cheratussin AC Syrup) 10 MG-100 MG/5 ML LIQUID 10 ML PO Q6 PRN cough Cyclobenzaprine HCl 10 MG TABLET 1 TAB PO TID MUSCLE SPASMS (Reported) Esomeprazole (Nexium) 40 MG CAPSULE.DR 1 CAP PO BID GI (Reported) NOT GIVEN IN HOSP Fluticasone/Salmeterol (Advair 500-50 Diskus) 500 MCG-50 MCG/DOSE BLST.W.DEV 1 PUF INH BID ASTHMA (Reported) Glimepiride (Amaryl) 4 MG TABLET 1 TAB PO BID DM (Reported) Guaifenesin (Mucinex) 600 MG TAB.ER.12H 1 TAB PO BID ASTHMA Hydrochlorothiazide 12.5 MG CAPSULE 1 CAP PO DAILY BP (Reported) Insulin Detemir (Levemir Flextouch) 100 UNIT/ML (3 ML) INSULN.PEN 15 UNITS SC QPM DM (Reported) Liraglutide (Victoza 3-Micah) 0.6 MG/0.1 ML (18 MG/3 ML) PEN.INJCTR 1.8 MG SC DAILY DM (Reported) Losartan Potassium (Cozaar) 25 MG TABLET 1 TAB PO DAILY HTN (Reported) Metformin HCl 1,000 MG TABLET 1,000 MG PO 0800,1700 DIABETES Montelukast Sodium 10 MG TABLET 1 TAB PO DAILY Asthma (Reported) Naproxen 500 MG TABLET 1 TAB PO BID PAIN (Reported) Oxycodone HCl (Roxicodone) 15 MG TABLET 1 TAB PO 4 TIMES/DAY PAIN (Reported) Prednisone 10 MG TABLET 10 MG PO SEE ADMIN CRITERIA ASTHMA PLEASE TAKE 6 TABLETS FOR 1 DAY (08/28) TAKE 5 TABLETS FOR FOR 3 DAY (08/29-08/31) TAKE 4 TABLETS FOR 3 DAYS (09/01-09/03) TAKE 3 TABLET FOR 3 DAYS (09/04-09/06) TAKE 2 TABLET FOR 3 DAYS (09/07-09/09) TAKE 1 TABLET FOR 3 DAYS, (09/10-09/12) THEN STOP Rosuvastatin Calcium (Crestor) 20 MG TABLET 1 TAB PO DAILY CHOLESTEROL ( Reported) Sertraline HCl 100 MG TABLET 1 TAB PO DAILY MENTAL HEALTH (Reported) Zolpidem Tartrate 10 MG TABLET 1 TAB PO QPM PRN SLEEP (Reported) Triage Nurses Notes Reviewed? yes Onset: Gradual Duration: day(s): Timing: recent history Severity: moderate HPI: 50 yo gentleman h/o asthma and diabetes, discharged on tuesday, presents this evening with worsening dyspnea, coughing, wheezing with "lots of sputum when I left.... I think I went home too early." He notes no chest pain, diarrhea, syncopal symptoms, fever, chills. Past History Medical History Any Pertinent Medical History? see below for history Neurological: dizziness EENT: NONE Cardiovascular: hypertension, hyperlipidemia Respiratory: asthma, bronchitis Gastrointestinal: NONE Hepatic: NONE Renal: NONE Musculoskeletal: CELLULITIS Psychiatric: depression Endocrine: diabetes Blood Disorders: NONE Cancer(s): NONE DINING ROOM HOST/Reproductive: NONE Other Medical Hx: Hx of MRSA History of MRSA: Yes History of VRE: No History of CDIFF: No Pneumonia Vaccine: 04/03/16 Influenza Vaccine: 04/03/16 Surgical History Surgical History: partial lung removal splenectomy Psychosocial History Who do you live with Patient/Self Services at Home None What is your primary language Tunisian Family History Family History, If Any: FATHER FH: diabetes mellitus SISTER FH: lymphoma Hx Contributory? No Review of Systems Review of Systems Constitutional: Reports: no symptoms. EENTM: Reports: no symptoms. Respiratory: Reports: no symptoms. Cardiovascular: Reports: no symptoms. GI: Reports: no symptoms. Genitourinary: Reports: no symptoms. Musculoskeletal: Reports: no symptoms. Skin: Reports: no symptoms. Neurological/Psychological: Reports: no symptoms. Hematologic/Endocrine: Reports: no symptoms. Immunologic/Allergic: Reports: no symptoms. All Other Systems: Reviewed and Negative Physical Exam Physical Exam General Appearance: well developed/nourished, moderate distress Head: atraumatic, normal appearance Eyes: Bilateral: normal appearance. Ears, Nose, Throat: normal pharynx, normal ENT inspection Neck: normal inspection, supple, full range of motion Respiratory: wheezing, respiratory distress Cardiovascular: regular rate/rhythm Gastrointestinal: normal bowel sounds, soft, non-tender, no organomegaly Extremities: normal inspection, normal capillary refill, normal range of motion, no edema Neurologic/Psych: no motor/sensory deficits, awake, alert, oriented x 3 Skin: intact, normal color, warm/dry Core Measures ACS in differential dx? No Severe Sepsis Present: No Septic Shock Present: No Progress Differential Diagnosis: asthma, CHF, COPD, pneumonia Plan of Care: Orders Procedure Date/time Status Nothing by Mouth 08/30 B Active Patient Data 08/31 215 Active Saline Lock 08/[address] in observation 08/31 203 Active Misc Message 08/31 203 Active ED Holding Orders 08/31 203 Active Vital Signs 08/31 203 Active Code Status 08/31 203 Active TROPONIN LEVEL 08/30 16 Complete COMPREHENSIVE METABOLIC PANEL 08/30 16 Complete CBC WITHOUT DIFFERENTIAL 08/30 16 Complete EKG 08/30 16 Active Laboratory Tests 08/30/16 0020: Anion Gap 14, Estimated GFR > 60, BUN/Creatinine Ratio 18.0, Glucose 427 H, Calcium 9.7, Total Bilirubin 0.3, AST 19, ALT 32, Alkaline Phosphatase 124, Troponin I < 0.01, Total Protein 7.2, Albumin 3.8, Globulin 3.4, Albumin/ Globulin Ratio 1.1, CBC w Diff MAN DIFF ORDERED, RBC 4.50 L, MCV 87.5, MCH 29.0 , RDW 14.2, MPV 8.4, Gran % 90.3 H, Lymphocytes % 8.7 L, Monocytes % 0.9 L, Eosinophils % 0.1, Basophils % 0 L, Absolute Granulocytes 14.4 H, Segmented Neutrophils 87 H, Absolute Lymphocytes 1.4, Lymphocytes 8 L, Monocytes 5, Absolute Monocytes 0.1 L, Absolute Eosinophils 0, Absolute Basophils 0, Platelet Estimate INCREASED, Polychromasia 1+, Poikilocytosis 1+, Ovalocytes 1+, Elliptocytes FEW, PUBS MCHC 33.1, Fld Total RBCs Counted 100 Diagnostic Imaging: Viewed by Me: Radiology Read. Discussed w/RAD: Radiology Read. CXR Impression: no acute abnormality, no infiltrates, normal size heart, normal mediastinum, AUGUST 2016... FULL REPORT BELOW. Initial ED EKG: normal axis, normal intervals, normal p-waves, normal QRS complex, normal sinus rhythm Comments: PATIENT: JUDI BASHIR PRESENT AGE: 50 PATIENT ACCOUNT NO: [id number] : 65 LOCATION: ER ORDERING PHYSICIAN: RAMILA MCCAULEY MD SERVICE DATE: 08/30/167 EXAM TYPE: RAD - XRY-CHEST XRAY, PA AND LATERAL EXAMINATION: CHEST 2 VIEWS CLINICAL INFORMATION: Wheezing, dyspnea. COMPARISON: 08/22/2016. TECHNIQUE: PA and lateral views of the chest were obtained. FINDINGS: The cardiac silhouette is not enlarged. The mediastinal and hilar contours are unremarkable. There are neither pleural effusions nor pneumothoraces. There are no consolidations. The osseous structures are unremarkable. IMPRESSION: No evidence for acute disease. DICTATED BY: FLORY MANUEL MD DATE/TIME DICTATED:08/30/16138 INFORMATION TECHNOLOGY SPECIALIST:MYRA DATE/TIME TRANSCRIBED:08/30/16138 CONFIDENTIAL, DO NOT COPY WITHOUT APPROPRIATE AUTHORIZATION. <Electronically signed in Other Vendor System> SIGNED BY: FLORY MANUEL MD 08/30/16 0145 PATIENT: JUDI BASHIR PRESENT AGE: 50 PATIENT ACCOUNT NO: [id number] : 65 LOCATION: [facility] ORDERING PHYSICIAN: YESSENIA JOHNSON SERVICE DATE: 08/22/16 EXAM TYPE: RAD - XRY-CHEST XRAY, PA AND LATERAL EXAMINATION: XR CHEST CLINICAL INFORMATION: Chest tightness. COMPARISON: Prior thoracic imaging, most recent radiography 03/23/2016. Chest CT 07/13/2016. TECHNIQUE: Two views of the chest were obtained. FINDINGS: The lungs are well-expanded. Surgical material overlies the left lower lung. Chronic nodular opacity overlying the peripheral left midlung consistent with a pleural/subpleural nodule demonstrated on prior chest CT scans. No new lobar consolidation, pneumothorax, pulmonary edema or pleural effusion. No mediastinal widening. No acute osseous abnormalities. IMPRESSION: No evidence of acute pulmonary pathology. Nonacute findings as described above. DICTATED BY: RYLIE GARCIA MD DATE/TIME DICTATED:08/22/161811 INFORMATION TECHNOLOGY SPECIALIST:MYRA DATE/TIME TRANSCRIBED:08/22/161811 CONFIDENTIAL, DO NOT COPY WITHOUT APPROPRIATE AUTHORIZATION. <Electronically signed in Other Vendor System> SIGNED BY: RYLIE GARCIA MD 08/22/161820 Departure Departure Disposition: HOME OR SELF CARE Condition: Stable Clinical Impression Primary Impression: Asthma exacerbation Referrals: DEVIN ORTIZ (PCP/Family) Departure Forms: Customer Survey General Discharge Information Comments 08/30/16, 0:45... ambulated patient... o2 sat 96%, but pt notably dyspneic, unable to speak complete sentences. Observation Note Spoke With: RACQUEL AHUJA,[facility] Physician Advisor Notified: LITTLE SANTO DO Place Patient In: Non-ED OBS Care Area Rationale for Observation: My rational for observation is as follows . pt with asthma exacerbation, notable dyspneic after ambulation...... recently discharged... Will place in obs for iv steroids, nebs, close monitoring. Critical Care Note Critical Care Note Critical Care Time: non-applicable
[2016-08-30 00:43] LABS: ABSOLUTE BASOPHIL COUNT 0 /CUMM (0.0-0.2); ABSOLUTE EOSINOPHIL COUNT 0 /CUMM (0.0-0.7); ABSOLUTE GRANULOCYTE CT 14.4 /CUMM (1.4-6.5); ABSOLUTE LYMPH COUNT 1.4 /CUMM (1.2-3.4); ABSOLUTE MONOCYTE COUNT 0.1 /CUMM (0.10-0.60); BASOPHIL % 0 % (0.0-2.0); EOSINOPHIL % 0.1 % (0-5); GRANULOCYTE % 90.3 % (42.2-75.2); HEMATOCRIT 39.3 % (42-52); MEAN CORPUSCULAR HGB CONC 33.1 G/DL (33.0-37.0); MEAN CORPUSCULAR VOLUME 87.5 FL (80.0-94.0); MEAN PLATELET VOLUME 8.4 FL (7.4-10.4); PLATELET COUNT 484 /CUMM (130-400); RBC DISTRIBUTION WIDTH 14.2 % (11.5-14.5); WHITE BLOOD CELL COUNT 15.9 /CUMM (4.8-10.8)
--- NOTE | 2016-08-30 01:45 | RADIOLOGY REPORT ---
EXAMINATION: CHEST 2 VIEWS CLINICAL INFORMATION: Wheezing, dyspnea. COMPARISON: 08/22/2016. TECHNIQUE: PA and lateral views of the chest were obtained. FINDINGS: The cardiac silhouette is not enlarged. The mediastinal and hilar contours are unremarkable. There are neither pleural effusions nor pneumothoraces. There are no consolidations. The osseous structures are unremarkable. IMPRESSION: No evidence for acute disease.
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
[2016-08-30 03:45] VITALS: BP 148/98
[2016-08-30 06:43] VITALS: BP 158/80
--- NOTE | 2016-08-30 12:14 | PN- Att Addend ---
Attending Addendum Attending Brief Note 50 yo morbidly obese M with h/o asthma, severe sleep apnea on CPAP, T2DM, HTN, pulmonary nodules, who was admitted for asthma exacerbation (08/22 08/27) on a slow prednisone taper recently discharged came to ER with SOB. He reports he quit smoking 1 month ago. Vitals are stable, he is not hypoxic. Able to speak in full sentences, not using accessory muscles of respiration. Exertional dyspnea in the setting of moderate to severe persistent asthma. ECHO recently with no RWMA and no depressed EF. No evidence of pneumonia. PE is a possibility, but patient is not hypoxic or tachycardic. Continue with TRC nebs RTC, IV steroids 40 q8, taper in next 24 hrs peak flow q shift, continue montelukast. DM basal insulin and riss titrate insulin as needed. morbid obesity BMI 41.4 CPAP at night for JO. DVT ppx Lovenox. Full code
[2016-08-30 14:26] VITALS: BP 145/78
[2016-08-30 23:26] VITALS: BP 142/88
[2016-08-31 06:25] VITALS: BP 152/81
[2016-08-31 10:01] LABS: ABSOLUTE BASOPHIL COUNT 0.1 /CUMM (0.0-0.2); ABSOLUTE EOSINOPHIL COUNT 0 /CUMM (0.0-0.7); ABSOLUTE GRANULOCYTE CT 15.8 /CUMM (1.4-6.5); ABSOLUTE LYMPH COUNT 1.5 /CUMM (1.2-3.4); ABSOLUTE MONOCYTE COUNT 0.4 /CUMM (0.10-0.60); BASOPHIL % 0.3 % (0.0-2.0); EOSINOPHIL % 0 % (0-5); GRANULOCYTE % 89.2 % (42.2-75.2); HEMATOCRIT 38.5 % (42-52); MEAN CORPUSCULAR HGB 28.9 PG (27.0-31.0); MEAN CORPUSCULAR HGB CONC 32.4 G/DL (33.0-37.0); MEAN CORPUSCULAR VOLUME 89.1 FL (80.0-94.0); MEAN PLATELET VOLUME 8.6 FL (7.4-10.4); PLATELET COUNT 442 /CUMM (130-400); RBC DISTRIBUTION WIDTH 14.9 % (11.5-14.5); RED BLOOD CELL CT 4.32 /CUMM (4.70-6.10)
--- NOTE | 2016-08-31 11:01 | Cons- Pulmonary ---
General Information and HPI Consulting Request Date of Consult: 08/31/16 Requested By: Dr. Bland Reason for Consult: asthma exacerbation Source of Information: patient Exam Limitations: no limitations History of Present Illness: 50 year old man. Readmitted for an acute exacerbation of asthma Remains compliant with inhalers quit smoking, occasionally uses cigars CT unchanged since 2013, plaques and nodules. He had a sleep study in November 2015. Showing extremely severe obstructive sleep apnea with loud snoring. AHI has been 108.2 with a low oxygen saturation to 74%. The AHI severely elevated supine at 108.2 CPAP was initiated and patient was prescribed CPAP at 16 cm water which controlled the AHI to 0. Compliance reviewed usage day 73% over 4 hours 50% AHI is 1.8. CT chest reviewed from November no change in calcified pleural plaques in the left. No change in multiple scattered bilateral pulmonary nodules. ADVAIR twice a day everyday. He uses rescue inhaler at least 4 times a week. He reports that he cant do exercise much because of exertional dyspnea. He reports having difficulty falling sleep. He has normal PFTs with slightly diminished lung volumes. CXR No evidence of acute pulmonary pathology. Nonacute findings as described above Mild leukocytosis maybe reactive/steroid induced. Significant sputum yellowish production. Allergies/Medications Allergies: Coded Allergies: NO KNOWN ALLERGIES (02/03/15) Home Med List: Albuterol Sulfate (Ventolin Hfa) 90 MCG HFA.AER.AD 2 PUF INH Q4-6 PRN PRN WHEEZING Amlodipine Besylate 10 MG TABLET 1 TAB PO DAILY BP (Reported) Aspirin (Ecotrin*) 81 MG TABLET.DR 1 TAB PO DAILY HEART/BLOOD (Reported) Codeine Phosphate/Guaifenesi (Cheratussin AC Syrup) 10 MG-100 MG/5 ML LIQUID 10 ML PO Q6 PRN cough Cyclobenzaprine HCl 10 MG TABLET 1 TAB PO TID MUSCLE SPASMS (Reported) Esomeprazole (Nexium) 40 MG CAPSULE.DR 1 CAP PO BID GI (Reported) NOT GIVEN IN HOSP Fluticasone/Salmeterol (Advair 500-50 Diskus) 500 MCG-50 MCG/DOSE BLST.W.DEV 1 PUF INH BID ASTHMA (Reported) Glimepiride (Amaryl) 4 MG TABLET 1 TAB PO BID DM (Reported) Guaifenesin (Mucinex) 600 MG TAB.ER.12H 1 TAB PO BID ASTHMA Hydrochlorothiazide 12.5 MG CAPSULE 1 CAP PO DAILY BP (Reported) Liraglutide (Victoza 3-Micah) 0.6 MG/0.1 ML (18 MG/3 ML) PEN.INJCTR 1.8 MG SC DAILY DM (Reported) Losartan Potassium (Cozaar) 25 MG TABLET 1 TAB PO DAILY HTN (Reported) Metformin HCl 1,000 MG TABLET 1,000 MG PO 0800,1700 DIABETES Oxycodone HCl (Roxicodone) 15 MG TABLET 1 TAB PO 4 TIMES/DAY PAIN (Reported) Prednisone 10 MG TABLET 10 MG PO SEE ADMIN CRITERIA ASTHMA PLEASE TAKE 6 TABLETS FOR 1 DAY (08/28) TAKE 5 TABLETS FOR FOR 3 DAY (08/29-08/31) TAKE 4 TABLETS FOR 3 DAYS (09/01-09/03) TAKE 3 TABLET FOR 3 DAYS (09/04-09/06) TAKE 2 TABLET FOR 3 DAYS (09/07-09/09) TAKE 1 TABLET FOR 3 DAYS, (09/10-09/12) THEN STOP Rosuvastatin Calcium (Crestor) 20 MG TABLET 1 TAB PO DAILY CHOLESTEROL ( Reported) Sertraline HCl 100 MG TABLET 1 TAB PO DAILY MENTAL HEALTH (Reported) Zolpidem Tartrate 10 MG TABLET 1 TAB PO QPM PRN SLEEP (Reported) Current Medications: Current Medications Sig/Elodia Start time Last Medication Dose Route Stop Time Status Admin Albuterol Sulfate 3 ML EVERY 4 HRS/AWAKE 08/30 1200 AC 08/31 INH 0759 Amlodipine Besylate 10 MG DAILY 08/30 1000 AC 08/31 PO 0943 Aspirin Buffered 81 MG DAILY 08/30 1000 AC 08/31 PO 0943 Atorvastatin Calcium 80 MG 1700 08/30 1700 AC 08/30 PO 1700 Azithromycin 500 MG DAILY 08/31 1053 UNVr Sodium Chloride 250 ML IV Benzocaine/Menthol 1 SAUL Q2P PRN 08/31 0345 AC PO Cyclobenzaprine HCl 10 MG TID 08/30 1000 AC 08/31 PO 0943 Enoxaparin Sodium 40 MG DAILY 08/30 1000 AC 08/31 SC 0944 Guaifenesin 10 ML .STK-MED ONE 08/31 0238 DC PO 08/31 0239 Guaifenesin 10 ML Q4P PRN 08/30 0345 AC 08/31 PO 0700 Guaifenesin 600 MG Q12 08/30 0312 AC 08/31 PO 0943 Hydrochlorothiazide 12.5 MG DAILY 08/30 1000 AC 08/31 PO 0943 Insulin Aspart 0 TIDAC 08/30 0800 AC 08/31 SC 0900 Insulin Detemir 17 UNITS QPM 08/30 2200 AC 08/30 SC 2214 Losartan Potassium 25 MG DAILY 08/30 1000 AC 08/31 PO 0943 Methylprednisolone 40 MG Q8 08/30 0600 AC 08/31 IV 0546 Montelukast Sodium 10 MG AT BEDTIME 08/30 220 AC 08/30 PO 2213 Omeprazole 40 MG DAILY AC 08/30 0700 AC 08/31 PO 0546 Oxycodone HCl 15 MG Q6 PRN 08/30 0330 AC 08/31 PO 0942 Sertraline HCl 100 MG DAILY 08/30 1000 AC 08/31 PO 0943 Zolpidem Tartrate 10 MG AT BEDTIME NEED.. 08/30 0345 AC 08/30 PO 221 Review of Systems Comments 18 point review of systems performed. Pertinent positive and negative findings are in the HPI, otherwise negative. Past History Travel History Traveled to [place] past 21 day No Medical History Blood Transfusion Hx: Yes Neurological: dizziness EENT: NONE Cardiovascular: hypertension, hyperlipidemia Respiratory: asthma, bronchitis Gastrointestinal: NONE Hepatic: NONE Renal: NONE Musculoskeletal: CELLULITIS Psychiatric: depression Endocrine: diabetes Blood Disorders: NONE Cancer(s): NONE DIRECTOR OF VENDOR MANAGEMENT/Reproductive: NONE Other Medical Hx: Hx of MRSA Surgical History Surgical History: partial lung removal splenectomy Family History Relations & Conditions If Any: FATHER FH: diabetes mellitus SISTER FH: lymphoma Psychosocial History Who Do You Live With? self Services at Home: None Primary Language: Tajik Smoking Status: Former Smoker ETOH Use: denies use Illicit Drug Use: denies illicit drug use Functional Ability ADLs Independent: dressing, eating, toileting, bathing. Ambulation: independent IADLs Independent: shopping, housework, finances, food prep, telephone, transportation , medication admin. Exam & Diagnostic Data Last 24 Hrs of Vital Signs/I&O Vital Signs Date Time Temp Pulse Resp B/P Pulse O2 O2 Flow FiO2 Ox Delivery Rate 08/31 942 97.9 81 152/81 08/31 0843 81 152/81 08/31 800 97 Room Air Room Air 09/01 799 93 Room Air Room Air 04/11 0625 97.9 81 20 152/81 94 Room Air 08/31 0221 98 Room Air 08/31 0000 Room Air 08/30 2326 97.6 83 20 142/88 96 Room Air 08/30 1625 96 Room Air Room Air 08/30 1600 Room Air 08/30 1426 97.7 89 20 145/78 95 Intake & Output 08/31 1600 08/31 0800 08/31 0000 Intake Total 500 500 Output Total Balance 500 500 Intake, Oral 500 500 Physical Exam Other Physical Findings: General - Alert, awake and oriented HEENT - normocephalic, atraumatic Cardiovascular - S1, S2 Lungs - significant rhonchi Abdomen - soft, bowel sounds positive, no tenderness Extremities - without edema or cyanosis Last 48 Hrs of Labs/Darren: Laboratory Tests 08/31/16 0820: Anion Gap 14, Estimated GFR > 60, BUN/Creatinine Ratio 28.9 H, CBC w Diff Pending, WBC Pending, RBC Pending, Hgb Pending, Hct Pending, MCV Pending, MCH Pending, RDW Pending, Plt Count Pending, MPV Pending, Gran % Pending, Lymphocytes % Pending, Monocytes % Pending, Eosinophils % Pending, Basophils % Pending, Absolute Granulocytes Pending, Absolute Lymphocytes Pending, Absolute Monocytes Pending, Absolute Eosinophils Pending, Absolute Basophils Pending, PUBS MCHC Pending 08/30/16 0020: Anion Gap 14, Estimated GFR > 60, BUN/Creatinine Ratio 18.0, Glucose 427 H, Hemoglobin A1c 9.0 H, Calcium 9.7, Total Bilirubin 0.3, AST 19, ALT 32, Alkaline Phosphatase 124, Troponin I < 0.01, Total Protein 7.2, Albumin 3.8, Globulin 3.4, Albumin/Globulin Ratio 1.1, CBC w Diff MAN DIFF ORDERED, RBC 4.50 L, MCV 87.5, MCH 29.0, RDW 14.2, MPV 8.4, Gran % 90.3 H, Lymphocytes % 8.7 L, Monocytes % 0.9 L, Eosinophils % 0.1, Basophils % 0 L, Absolute Granulocytes 14.4 H, Segmented Neutrophils 87 H, Absolute Lymphocytes 1.4, Lymphocytes 8 L , Monocytes 5, Absolute Monocytes 0.1 L, Absolute Eosinophils 0, Absolute Basophils 0, Platelet Estimate INCREASED, Polychromasia 1+, Poikilocytosis 1+, Ovalocytes 1+, Elliptocytes FEW, PUBS MCHC 33.1, Fld Total RBCs Counted 100 Assessment/Plan Impression/Plan: Impression 50 year old man * Acute exacerbation of asthma, possibly allergic vs URI component as a cause * Multiple pulmonary nodules * JO * tobacco dependence Plan * continue solumedrol 40mg iv q8h today * add zpak for 5 days, check sputum cx * mucomyst bid nebulized * flutter device and incentive spirometry - please inform respiratory therapist * monitor finger sticks/glucose control * Peak flow q shift * TRC/Nebs - Albuterol/Atrovent * sleep apnea compliance to resume as outpatient DVT prophylaxis at all times Consult Acknowledgment - Thank you for your consult request.
[2016-08-31 11:21] LABS: WHITE BLOOD CELL COUNT 17.7 /CUMM (4.8-10.8)
--- NOTE | 2016-08-31 11:34 | PN- Housestaff ---
VINH AHUJA,CURRY 08/31/16 1134: Subjective Follow-up For: Asthma exacerbation Subjective: Saw patient at bedside this a.m. He states he continues to feel short of breath. Denies any acute overnight events. He stated that prior to coming to the hospital his peak flows were 180-200. He continues to feel same. Review of Systems Constitutional: Reports: chills. Denies: fever, malaise. EENTM: Reports: no symptoms. Cardiovascular: Denies: chest pain, palpitations. Respiratory: Reports: cough, short of breath, wheezing. Denies: hemoptysis, orthopnea, sputum production. Gastrointestinal: Denies: bloating, constipation, diarrhea, distention, bowel incontinence, melena , nausea, changes in stool. Genitourinary: Reports: no symptoms. Musculoskeletal: Reports: no symptoms. Objective Last 24 Hrs of Vital Signs/I&O Vital Signs Date Time Temp Pulse Resp B/P Pulse O2 O2 Flow FiO2 Ox Delivery Rate 08/31 942 97.9 81 152/81 08/31 0943 81 152/81 08/31 0801 97 Room Air Room Air 08/31 0800 93 Room Air Room Air 08/31 0625 97.9 81 20 152/81 94 Room Air 08/31 0221 98 Room Air 08/31 0000 Room Air 08/30 2326 97.6 83 20 142/88 96 Room Air 08/30 1625 96 Room Air Room Air 08/30 1600 Room Air 08/30 1426 97.7 89 20 145/78 95 Intake & Output 08/31 1600 08/31 0800 08/31 0000 Intake Total 500 500 Output Total Balance 500 500 Intake, Oral 500 500 Physical Exam General Appearance: Alert, Oriented X3, Cooperative, Mild Distress Skin: No Significant Lesion HEENT: Atraumatic, PERRLA Neck: Supple Cardiovascular: Regular Rate, Normal S1, Normal S2 Lungs: DIFFUSE WHEEZES PRESENT IN ALL HERRON Abdomen: Soft, No Tenderness Neurological: Normal Speech Current Medications: Current Medications Sig/Elodia Start time Last Medication Dose Route Stop Time Status Admin Albuterol Sulfate 3 ML EVERY 4 HRS/AWAKE 08/30 1200 AC 08/31 INH 1123 Amlodipine Besylate 10 MG DAILY 08/30 1000 AC 08/31 PO 0943 Aspirin Buffered 81 MG DAILY 08/30 1000 AC 08/31 PO 0943 Atorvastatin Calcium 80 MG 1700 08/30 1700 AC 08/30 PO 1700 Azithromycin 500 MG Q24H 08/31 1200 AC Sodium Chloride 250 ML IV Benzocaine/Menthol 1 SAUL Q2P PRN 08/31 034 AC PO Cyclobenzaprine HCl 10 MG TID 08/30 1000 AC 08/31 PO 0943 Enoxaparin Sodium 40 MG DAILY 08/30 1000 AC 08/31 SC 0944 Guaifenesin 10 ML .STK-MED ONE 08/31 0238 DC PO 08/31 0239 Guaifenesin 10 ML Q4P PRN 08/30 0345 AC 08/31 PO 0700 Guaifenesin 600 MG Q12 08/30 0312 AC 08/31 PO 0943 Hydrochlorothiazide 12.5 MG DAILY 08/30 1000 AC 08/31 PO 0943 Insulin Aspart 0 TIDAC 08/30 0800 AC 08/31 SC 0900 Insulin Detemir 17 UNITS QPM 08/30 2200 AC 08/30 SC 2214 Losartan Potassium 25 MG DAILY 08/30 1000 AC 08/31 PO 0943 Methylprednisolone 40 MG Q8 08/30 0600 AC 08/31 IV 0546 Montelukast Sodium 10 MG AT BEDTIME 08/30 2200 AC 08/30 PO 2213 Omeprazole 40 MG DAILY AC 08/30 0700 AC 08/31 PO 0546 Oxycodone HCl 15 MG Q6 PRN 08/30 0330 AC 08/31 PO 0942 Sertraline HCl 100 MG DAILY 08/30 1000 AC 08/31 PO 0943 Zolpidem Tartrate 10 MG AT BEDTIME NEED.. 08/30 034 AC 08/30 PO 2213 Last 24 Hrs of Lab/Darren Results Last 24 Hrs of Labs/Mics: Laboratory Tests 08/31/16 0820: Anion Gap 14, Estimated GFR > 60, BUN/Creatinine Ratio 28.9 H, CBC w Diff NO MAN DIFF REQ, RBC 4.32 L, MCV 89.1, MCH 28.9, RDW 14.9 H, MPV 8.6, Gran % 89.2 H, Lymphocytes % 8.4 L, Monocytes % 2.1, Eosinophils % 0, Basophils % 0.3, Absolute Granulocytes 15.8 H, Absolute Lymphocytes 1.5, Absolute Monocytes 0.4, Absolute Eosinophils 0, Absolute Basophils 0.1, PUBS MCHC 32.4 L Assessment/Plan Assessment: This is a 50-year-old male with past medical history significant for obstructive sleep apnea, asthma, recently hospitalized at for asthma exacerbation who returns for same chief complaint. PLAN Acute exacerbation of asthma Patient presented with worsening cough, shortness of breath and wheezing for 2 days. Exposure to sick contacts. Not relieved with inhaler and prednisone. History of asthma. Chest x-ray Was normal. He received IV steroids every 8 and states he does feel better; however this a.m. he is still diffusely wheezy. In addition, patient has had splenectomy. He states that he is up-to-date with his vaccinations including flu and Pneumovax. * Admitted to general medicine floor for further management and observation; will extend arms by one more day * Monitor vitals closely every shift. * Monitor for fever, tachypnea, tachycardia. * Maintain oxygen saturation above 90% * IV steroids 40 mg every 8 hours * The total respiratory care * Short-acting beta agonist * Short-acting anticholinergic * Follow-up blood cultures * Follow-up sputum culture * Monitor CBC for leukocytosis * Mucinex 3 times a day * robitussin * Continue montelukast and Flonase * Thank you Pulmonology consult. * Peak flow measures every shift. * Continue nocturnal CPAP. GERD Continue Nexium 40 twice a day Hypertension Continue amlodipine 10 mg Continue hydrochlorothiazide 12.5 mg Continue home dose of losartan Hyperlipidemia * Continue statins Depression * Continue sertraline 100 mg Diabetes mellitus * Accu-Cheks. * Diabetic diet. * Would hold all oral diabetic medications. * Will increase the dose of Levemir from 15 to 17 as we are holding all oral diabetic medications and also starting the patient on IV steroids. * Will start the patient on insulin sliding scale. * consider Diabetic consult in the morning. iron deficiency anemia: labs in 2016 showed iron deficiency anemia Endoscopic ultrasound showed reflex esophagitis, Holden lesions. Iron studies 2017- iron 60, TIBC 407, ferritin 14.2 * Continue to monitor CBC muscle spasms: Continue home dose of cyclobenzaprine Chronic back pain * Continue Roxicodone home dose Obstructive sleep apnea * JO on CPAP; However patient couldn't use his CPAP for past few weeks because of severe cough. * Continue home setting of CPAP Problem List: 1. Asthma 2. GERD Pain Ratin Pain Location: chronic back pain Pain Goal: Remain pain free Pain Plan: cont current reg Tomorrow's Labs & Rationales: cbc bep FRANCISCO JAVIER GARZA 08/31/16 1135: Attending MD Review Statement Attending Statement Attending MD Statement: examined this patient, discuss w/resident/PA/MEDICAL OR SURGICAL INSTRUMENT MAKER, agreed w/resident/PA/MEDICAL OR SURGICAL INSTRUMENT MAKER, discussed with family, reviewed EMR data (avail), discussed with nursing, discussed with case mgmt, reviewed images Attending Assessment/Plan: 50 yo morbidly obese M with h/o asthma, severe sleep apnea on CPAP, T2DM, HTN, pulmonary nodules, who was admitted for asthma exacerbation (08/22 08/27) on a slow prednisone taper recently discharged came to ER with SOB. He reports he quit smoking 1 month ago. Vitals are stable, he is not hypoxic. Able to speak in full sentences, not using accessory muscles of respiration. Exertional dyspnea in the setting of moderate to severe persistent asthma. ECHO recently with no RWMA and no depressed EF. No evidence of pneumonia. PE is a possibility, but patient is not hypoxic or tachycardic. Continue with TRC nebs RTC, IV steroids 40 q8, taper in next 24 hrs, pulmonary on board. started on azithromycin peak flow q shift, continue montelukast. DM basal insulin and riss titrate insulin as needed. morbid obesity BMI 41.4 CPAP at night for JO. DVT ppx Lovenox. Full code
[2016-08-31 14:50] VITALS: BP 138/74
[2016-08-31 22:30] VITALS: BP 138/68
[2016-09-01 06:11] VITALS: BP 132/60
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
[2016-09-01 09:14] LABS: ABSOLUTE BASOPHIL COUNT 0 /CUMM (0.0-0.2); ABSOLUTE EOSINOPHIL COUNT 0 /CUMM (0.0-0.7); ABSOLUTE GRANULOCYTE CT 12.8 /CUMM (1.4-6.5); ABSOLUTE LYMPH COUNT 1.5 /CUMM (1.2-3.4); ABSOLUTE MONOCYTE COUNT 0.6 /CUMM (0.10-0.60); BASOPHIL % 0.1 % (0.0-2.0); EOSINOPHIL % 0 % (0-5); HEMATOCRIT 36.2 % (42-52); MEAN CORPUSCULAR HGB CONC 32.5 G/DL (33.0-37.0); MEAN PLATELET VOLUME 8.4 FL (7.4-10.4); PLATELET COUNT 432 /CUMM (130-400); RBC DISTRIBUTION WIDTH 14.6 % (11.5-14.5); RED BLOOD CELL CT 4.07 /CUMM (4.70-6.10); WHITE BLOOD CELL COUNT 14.9 /CUMM (4.8-10.8)
[2016-09-01 10:06] LABS: GRANULOCYTE % 85.8 % (42.2-75.2)
--- NOTE | 2016-09-01 10:20 | PN- Pulmonary ---
Subjective HPI/Critical Care Issues: pt seen and examined comfortable no overnight events no fevers still congested but feeling better Objective Current Medications: Current Medications Sig/Elodia Start time Last Medication Dose Route Stop Time Status Admin Acetylcysteine 2 ML BID 08/31 1203 AC 09/01 INH 0808 Albuterol Sulfate 3 ML EVERY 4 HRS/AWAKE 08/30 1200 AC 09/01 INH 0807 Amlodipine Besylate 10 MG DAILY 08/30 1000 AC 08/31 PO 0943 Aspirin Buffered 81 MG DAILY 08/30 1000 AC 08/31 PO 0943 Atorvastatin Calcium 80 MG 1700 08/30 1700 AC 08/31 PO 1601 Azithromycin 250 MG DAILY 09/01 1000 AC PO 09/05 1001 Azithromycin 500 MG Q24H 08/31 1200 DC 08/31 Sodium Chloride 250 ML IV 1341 Benzocaine/Menthol 1 SAUL Q2P PRN 08/31 0345 AC 09/01 PO 0527 Cyclobenzaprine HCl 10 MG TID 08/30 1000 AC 08/31 PO 2200 Enoxaparin Sodium 40 MG DAILY 08/30 1000 AC 08/31 SC 0944 Guaifenesin 10 ML .STK-MED ONE 09/01 0000 DC PO 09/01 0001 Guaifenesin 10 ML .STK-MED ONE 08/31 2018 DC PO 08/31 2019 Guaifenesin 10 ML .STK-MED ONE 08/31 1217 DC PO 08/31 1218 Guaifenesin 10 ML Q4P PRN 08/30 0345 AC 09/01 PO 0532 Guaifenesin 600 MG Q12 08/30 0312 AC 08/31 PO 2200 Hydrochlorothiazide 12.5 MG DAILY 08/30 1000 AC 08/31 PO 0943 Insulin Aspart 0 TIDAC 08/30 0800 AC 09/01 SC 0825 Insulin Detemir 15 UNITS BID 09/01 1000 AC SC Insulin Detemir 17 UNITS QPM 08/30 2200 DC 08/31 SC 2200 Ipratropium [place] 2.5 ML BID 08/31 2200 AC 08/31 INH 2040 Losartan Potassium 25 MG DAILY 08/30 1000 AC 08/31 PO 0943 Methylprednisolone 40 MG Q8 08/30 0600 AC 09/01 IV 0526 Montelukast Sodium 10 MG AT BEDTIME 08/30 2200 AC 08/31 PO 2200 Omeprazole 40 MG DAILY AC 04/10 0700 AC 09/01 PO 0526 Oxycodone HCl 15 MG Q6 PRN 08/30 0330 AC 09/01 PO 0527 Sertraline HCl 100 MG DAILY 08/30 1000 AC 08/31 PO 0943 Zolpidem Tartrate 10 MG AT BEDTIME NEED.. 08/30 0345 AC 09/01 PO 0002 Vital Signs & I&O Last 24 Hrs of Vitals and I&O: Vital Signs Date Time Temp Pulse Resp B/P Pulse O2 O2 Flow FiO2 Ox Delivery Rate 09/01 0849 95 Room Air Room Air 09/01 0611 98.0 74 19 132/60 95 Room Air 09/01 0000 Room Air 08/31 2230 97.7 70 18 138/68 96 08/31 1600 96 Room Air 08/31 1545 97 Room Air Room Air 08/31 1450 98.1 78 20 138/74 96 Room Air Intake & Output 09/01 1600 09/01 0800 09/01 0000 Intake Total 480 480 Output Total Balance 480 480 Intake, Oral 480 480 Patient 340 lb Weight Exam Other Physical Findings: General - Alert, awake and oriented HEENT - normocephalic, atraumatic Cardiovascular - S1, S2 Lungs - significant rhonchi Abdomen - soft, bowel sounds positive, no tenderness Extremities - without edema or cyanosis Results Last 24 Hrs of Lab Results: Laboratory Tests 09/01/16 0645: Anion Gap 11, Estimated GFR > 60, BUN/Creatinine Ratio 36.3 H, CBC w Diff NO MAN DIFF REQ, RBC 4.07 L, MCV 89.0, MCH 29.0, RDW 14.6 H, MPV 8.4, Gran % 85.8 H, Lymphocytes % 9.8 L, Monocytes % 4.3, Eosinophils % 0, Basophils % 0.1, Absolute Granulocytes 12.8 H, Absolute Lymphocytes 1.5, Absolute Monocytes 0.6, Absolute Eosinophils 0, Absolute Basophils 0, PUBS MCHC 32.5 L Impression/Plan Impression/Plan Impression/Plan: Impression 50 year old man * Acute exacerbation of asthma, possibly allergic vs URI component as a cause * Multiple pulmonary nodules * JO * tobacco dependence Plan * continue solumedrol 40mg iv q8h, depending on how pt is doing tomorrow will taper to po and discharge vs reducing dose to q12h, will follow with you * zpak for 5 days, check sputum cx * mucomyst bid nebulized * flutter device and incentive spirometry - please inform respiratory therapist * monitor finger sticks/glucose control * Peak flow q shift * TRC/Nebs - Albuterol/Atrovent * sleep apnea compliance to resume as outpatient DVT prophylaxis at all times
[2016-09-01 14:39] VITALS: BP 147/76
[2016-09-01 23:05] VITALS: BP 148/80
[2016-09-02 06:39] VITALS: BP 148/78
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
[2016-09-02 08:17] LABS: ABSOLUTE BASOPHIL COUNT 0 /CUMM (0.0-0.2); ABSOLUTE EOSINOPHIL COUNT 0 /CUMM (0.0-0.7); ABSOLUTE GRANULOCYTE CT 13.4 /CUMM (1.4-6.5); ABSOLUTE LYMPH COUNT 1.1 /CUMM (1.2-3.4); ABSOLUTE MONOCYTE COUNT 0.5 /CUMM (0.10-0.60); BASOPHIL % 0 % (0.0-2.0); EOSINOPHIL % 0 % (0-5); HEMATOCRIT 34.4 % (42-52); MEAN CORPUSCULAR HGB 29.3 PG (27.0-31.0); MEAN CORPUSCULAR HGB CONC 33.6 G/DL (33.0-37.0); MEAN CORPUSCULAR VOLUME 87.1 FL (80.0-94.0); MEAN PLATELET VOLUME 8.5 FL (7.4-10.4); PLATELET COUNT 416 /CUMM (130-400); RBC DISTRIBUTION WIDTH 14.3 % (11.5-14.5); RED BLOOD CELL CT 3.95 /CUMM (4.70-6.10)
[2016-09-02 09:43] LABS: GRANULOCYTE % 89.5 % (42.2-75.2)
--- NOTE | 2016-09-02 12:07 | PN- Pulmonary ---
Subjective HPI/Critical Care Issues: Patient seen and examined. He is appearing to be improving however still with significant dyspnea and cough. Objective Current Medications: Current Medications Sig/Elodia Start time Last Medication Dose Route Stop Time Status Admin Acetylcysteine 2 ML BID 08/31 1203 AC 09/02 INH 0932 Albuterol Sulfate 3 ML EVERY 4 HRS/AWAKE 08/30 1200 AC 09/02 INH 0932 Amlodipine Besylate 10 MG DAILY 08/30 1000 AC 09/02 PO 1024 Aspirin Buffered 81 MG DAILY 08/30 1000 AC 09/02 PO 1021 Atorvastatin Calcium 80 MG 1700 08/30 1700 AC 09/01 PO 1743 Azithromycin 250 MG DAILY 09/01 1000 AC 09/02 PO 09/05 1001 1024 Benzocaine/Menthol 1 SAUL Q2P PRN 08/31 0345 AC 09/02 PO 1136 Cyclobenzaprine HCl 10 MG TID 08/30 1000 AC 09/02 PO 1021 Docusate Sodium 100 MG DAILY NEEDED PRN 09/01 1130 AC 09/01 PO 1307 Enoxaparin Sodium 40 MG DAILY 08/30 1000 AC 09/02 SC 1023 Guaifenesin 10 ML .STK-MED ONE 09/02 0247 DC PO 09/02 0248 Guaifenesin 10 ML .STK-MED ONE 09/01 2002 DC PO 09/02 2003 Guaifenesin 10 ML .STK-MED ONE 09/01 1446 DC PO 09/01 1447 Guaifenesin 10 ML Q4P PRN 08/30 0345 AC 09/02 PO 0832 Guaifenesin 600 MG Q12 08/30 0312 AC 09/02 PO 1024 Hydrochlorothiazide 12.5 MG DAILY 08/30 1000 AC 09/02 PO 1021 Insulin Aspart 0 AT BEDTIME 09/01 2200 DC 09/01 SC 09/01 2201 2132 Insulin Aspart 0 TIDAC 08/30 0800 AC 09/02 SC 0831 Insulin Detemir 20 UNITS BID 09/02 1000 AC 09/02 SC 1022 Insulin Detemir 15 UNITS BID 09/01 1000 DC 09/01 SC 2133 Ipratropium [place] 2.5 ML BID 08/31 2200 AC 09/02 INH 0124 Losartan Potassium 25 MG DAILY 08/30 1000 AC 09/02 PO 1020 Methylprednisolone 40 MG Q12H 09/02 1800 AC IV Methylprednisolone 40 MG Q8 08/30 0600 DC 09/02 IV 0519 Montelukast Sodium 10 MG AT BEDTIME 08/30 2200 AC 09/01 PO 2134 Omeprazole 40 MG DAILY AC 08/30 0700 AC 09/02 PO 0519 Oxycodone HCl 15 MG Q6 PRN 08/30 0330 AC 09/02 PO 1127 Senna 187 MG AT BEDTIME PRN 09/01 1130 AC PO Sertraline HCl 100 MG DAILY 08/30 1000 AC 09/02 PO 1024 Zolpidem Tartrate 10 MG AT BEDTIME NEED.. 08/30 0345 AC 09/02 PO 0020 Vital Signs & I&O Last 24 Hrs of Vitals and I&O: Vital Signs Date Time Temp Pulse Resp B/P Pulse O2 O2 Flow FiO2 Ox Delivery Rate 09/02 1024 66 182/100 09/02 1020 66 182/100 09/02 0938 97 Room Air Room Air 09/02 0639 97.6 69 20 148/78 96 Room Air 09/02 0126 93 Room Air 09/02 0000 Room Air 09/01 2305 98.7 95 20 148/80 93 Room Air 09/01 1620 95 Room Air 09/01 1600 Room Air 09/01 1439 97.9 82 20 147/76 95 Intake & Output 09/02 1600 09/02 0800 09/02 0000 Intake Total 480 950 Output Total Balance 480 950 Intake, Oral 480 950 Number 1 Bowel Movements Exam Other Physical Findings: General - Alert, awake and oriented HEENT - normocephalic, atraumatic Cardiovascular - S1, S2 Lungs - significant rhonchi Abdomen - soft, bowel sounds positive, no tenderness Extremities - without edema or cyanosis Results Last 24 Hrs of Lab Results: Laboratory Tests 09/02/16 0724: Anion Gap 10, Estimated GFR > 60, BUN/Creatinine Ratio 35.0 H, CBC w Diff NO MAN DIFF REQ, RBC 3.95 L, MCV 87.1, MCH 29.3, RDW 14.3, MPV 8.5, Gran % 89.5 H , Lymphocytes % 7.3 L, Monocytes % 3.2, Eosinophils % 0, Basophils % 0 L, Absolute Granulocytes 13.4 H, Absolute Lymphocytes 1.1 L, Absolute Monocytes 0.5, Absolute Eosinophils 0, Absolute Basophils 0, PUBS MCHC 33.6 Impression/Plan Impression/Plan Impression/Plan: Impression 50 year old man * Acute exacerbation of asthma, possibly allergic vs URI component as a cause * Multiple pulmonary nodules * JO * tobacco dependence Plan * reduce solumedrol 40mg iv q12h, plan for po taper and dc planning tomorrow * zpak for 5 days, check sputum cx * mucomyst bid nebulized * flutter device and incentive spirometry - please inform respiratory therapist * monitor finger sticks/glucose control * Peak flow q shift * TRC/Nebs - Albuterol/Atrovent * sleep apnea compliance to resume as outpatient DVT prophylaxis at all times
[2016-09-02 14:57] VITALS: BP 136/64
[2016-09-02] MEDS ORDERED: MONTELUKAST SOD10 M1 PO (22:35)
[2016-09-02] MEDS ORDERED: ACETYLCYST200 MG/1 M INH (22:35)
[2016-09-02] MEDS ORDERED: GUAIFENESI100 MG/5 M PO (22:35)
[2016-09-02] MEDS ORDERED: ZITHROMAX250 M2 PO (22:39)
[2016-09-02] MEDS ORDERED: PREDNISONE20 M1 PO (22:39)
--- NOTE | 2016-09-02 22:41 | Patient Discharge Instructions ---
Discharge Instructions General Discharge Information You were seen/treated for: ASTHMA EXACERBATION Special Instructions: PLEASE F/U WITH YOUR PCP IN 1 WEEK OF OF DISCHARGE PLEASE COMPLETE THE STEROID DOSE NEEDED Diet Continue normal diet: No Recommended Diet: Diabetic Activity Activity Self Limited: Yes Acute Coronary Syndrome Inclusion Criteria At DC or during hospital stay patient has or had the following: ACS DIAGNOSIS No Discharge Core Measures Meds if any: Prescribed or Continued at Discharge Meds if any: NOT Prescribed or Continued at Discharge Congestive Heart Failure Inclusion Criteria At DC or during hospital stay patient has or had the following: CHF DIAGNOSIS No Discharge Core Measures Meds if any: Prescribed or Continued at Discharge Meds if any: NOT Prescribed or Continued at Discharge Cerebrovascular accident Inclusion Criteria At DC or during hospital stay patient has or had the following: CVA/TIA Diagnosis No Discharge Core Measures Meds if any: Prescribed or Continued at Discharge Meds if any: NOT Prescribed or Continued at Discharge Venous thromboembolism Inclusion Criteria VTE Diagnosis No VTE Type NONE VTE Confirmed by (Test) NONE Discharge Core Measures - Per Current guidelines, there needs to be overlap - treatment for the first 5 days of Warfarin therapy. - If discharged on Warfarin prior to 5 days of - overlap therapy, the patient will need to be - assessed for post discharge needs including - *Post discharge parental anticoagulation - *Warfarin and/or parental anticoagulation education - *Follow up date to check INR post discharge At least 5 days overlap therapy as Inpatient No Meds if any: Prescribed or Continued at Discharge Note: Overlap Therapy is Warfarin and Anticoagulant Meds if any: NOT Prescribed or Continued at Discharge
[2016-09-02 22:59] VITALS: BP 158/85
[2016-09-03 07:37] VITALS: BP 154/86
[2016-09-03 09:13] VITALS: BP 156/84
[2016-09-03 09:20] LABS: ABSOLUTE BASOPHIL COUNT 0 /CUMM (0.0-0.2); ABSOLUTE EOSINOPHIL COUNT 0 /CUMM (0.0-0.7); ABSOLUTE GRANULOCYTE CT 12.9 /CUMM (1.4-6.5); ABSOLUTE LYMPH COUNT 4.5 /CUMM (1.2-3.4); BASOPHIL % 0.2 % (0.0-2.0); EOSINOPHIL % 0.1 % (0-5); HEMATOCRIT 36.3 % (42-52); MEAN CORPUSCULAR HGB 28.7 PG (27.0-31.0); MEAN CORPUSCULAR HGB CONC 32.9 G/DL (33.0-37.0); MEAN CORPUSCULAR VOLUME 87.4 FL (80.0-94.0); MEAN PLATELET VOLUME 8.4 FL (7.4-10.4); PLATELET COUNT 389 /CUMM (130-400); RBC DISTRIBUTION WIDTH 14.7 % (11.5-14.5); RED BLOOD CELL CT 4.15 /CUMM (4.70-6.10); WHITE BLOOD CELL COUNT 18.4 /CUMM (4.8-10.8)
--- NOTE | 2016-09-03 09:54 | PN- Pulmonary ---
Subjective HPI/Critical Care Issues: pt seen and examined feels better still with dyspnea but improving overall no fevers, no chills productive whitish phlegm Objective Current Medications: Current Medications Sig/Elodia Start time Last Medication Dose Route Stop Time Status Admin Acetylcysteine 2 ML BID 08/31 1203 AC 09/03 INH 0938 Albuterol Sulfate 3 ML EVERY 4 HRS/AWAKE 08/30 1200 AC 09/03 INH 0938 Amlodipine Besylate 10 MG DAILY 08/30 1000 AC 09/03 PO 0913 Aspirin Buffered 81 MG DAILY 08/30 1000 AC 09/03 PO 0912 Atorvastatin Calcium 80 MG 1700 08/30 1700 AC 09/02 PO 1658 Azithromycin 250 MG DAILY 09/01 1000 AC 09/03 PO 09/05 1001 0913 Benzocaine/Menthol 1 SAUL Q2P PRN 08/31 0345 AC 09/03 PO 0528 Cyclobenzaprine HCl 10 MG TID 08/30 1000 AC 09/03 PO 0913 Docusate Sodium 100 MG DAILY NEEDED PRN 09/01 1130 AC 09/01 PO 1307 Enoxaparin Sodium 40 MG DAILY 08/30 1000 AC 09/03 SC 0913 Guaifenesin 10 ML .STK-MED ONE 09/02 2247 DC PO 09/02 2248 Guaifenesin 10 ML .STK-MED ONE 09/02 1733 DC PO 09/02 1734 Guaifenesin 10 ML Q4P PRN 08/30 0345 AC 09/03 PO 0918 Guaifenesin 600 MG Q12 08/30 0312 AC 09/03 PO 0913 Hydrochlorothiazide 12.5 MG DAILY 08/30 1000 AC 09/03 PO 0913 Insulin Aspart 0 TIDAC 08/30 0800 AC 09/03 SC 0755 Insulin Detemir 20 UNITS BID 09/02 1000 AC 09/03 SC 0913 Ipratropium [place] 2.5 ML BID 08/31 2200 AC 09/03 INH 0938 Losartan Potassium 25 MG DAILY 08/30 1000 AC 09/03 PO 0912 Methylprednisolone 40 MG Q12H 09/02 1800 DC 09/02 IV 09/03 0000 1659 Montelukast Sodium 10 MG AT BEDTIME 08/30 2200 AC 09/02 PO 2047 Omeprazole 40 MG DAILY AC 08/30 0700 AC 09/03 PO 0525 Oxycodone HCl 15 MG Q6 PRN 08/30 0330 AC 09/03 PO 0525 Prednisone 40 MG DAILY 09/03 1000 AC 09/03 PO 0913 Senna 187 MG AT BEDTIME PRN 09/01 1130 AC PO Sertraline HCl 100 MG DAILY 08/30 1000 AC 09/03 PO 0913 Zolpidem Tartrate 10 MG AT BEDTIME NEED.. 08/30 0345 AC 09/02 PO 2321 Vital Signs & I&O Last 24 Hrs of Vitals and I&O: Vital Signs Date Time Temp Pulse Resp B/P Pulse O2 O2 Flow FiO2 Ox Delivery Rate 09/03 0939 97 Room Air Room Air 09/03 0913 82 156/84 09/03 0912 82 156/84 09/03 0737 97.6 78 20 154/86 95 Room Air 09/03 0541 97 Room Air Room Air 09/03 0000 Room Air 09/02 2259 98.1 74 20 158/85 94 Room Air 09/02 1815 95 Room Air 09/02 1457 98.0 85 18 136/64 97 Room Air 09/02 1024 66 182/100 09/02 1020 66 182/100 Intake & Output 09/03 1600 09/03 0800 09/03 0000 Intake Total 240 1480 Output Total Balance 240 1480 Intake, Oral 240 1480 Exam Other Physical Findings: General - Alert, awake and oriented HEENT - normocephalic, atraumatic Cardiovascular - S1, S2 Lungs - significant rhonchi Abdomen - soft, bowel sounds positive, no tenderness Extremities - without edema or cyanosis Results Last 24 Hrs of Lab Results: Laboratory Tests 09/03/16 0822: Anion Gap 11, Estimated GFR > 60, BUN/Creatinine Ratio 29.0 H, CBC w Diff Pending, WBC Pending, RBC Pending, Hgb Pending, Hct Pending, MCV Pending, MCH Pending, RDW Pending, Plt Count Pending, MPV Pending, Gran % Pending, Lymphocytes % Pending, Monocytes % Pending, Eosinophils % Pending, Basophils % Pending, Absolute Granulocytes Pending, Absolute Lymphocytes Pending, Absolute Monocytes Pending, Absolute Eosinophils Pending, Absolute Basophils Pending, PUBS MCHC Pending Impression/Plan Impression/Plan Impression/Plan: Impression 50 year old man * Acute exacerbation of asthma, possibly allergic vs URI component as a cause * Multiple pulmonary nodules * JO * tobacco dependence Plan * dc solumedrol, prednisone 60x3, 50x3, 40x3, 30x3, 20x3, 10x3 then stop * zpak for 5 days, check sputum cx * mucomyst bid nebulized * flutter device and incentive spirometry - please inform respiratory therapist * monitor finger sticks/glucose control * Peak flow q shift * TRC/Nebs - Albuterol/Atrovent * sleep apnea compliance to resume as outpatient DVT prophylaxis at all times DC planning
[2016-09-03] MEDS ORDERED: PREDNISONE20 M1 PO ×2 (10:01→10:19)
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
[2016-11-08] MEDS ORDERED: HYDROCHLOROTHIA25 M1 PO (22:39)
[2016-11-08] MEDS ORDERED: COZAAR50 M1 PO (22:39)
[2016-11-08] MEDS ORDERED: NAPROXEN500 M2 PO (22:40)
[2016-11-08] MEDS ORDERED: ALBUTEROL2.5 MG/3 M INH/SOL (22:41)
[2016-11-08] MEDS ORDERED: LEVEMIR FL100 UNIT/1 SC (22:41)
[2016-11-09] MEDS ORDERED: AUGMENTIN 875-1 EACH PO (00:03)
== END 2016-09-03 13:29 | DRG 141 ==
LOC: ENRESERVDT → ENRESERVTM → ERH 23:32 → 2NB 08-30 02:04 → ERHI 08-30 02:04 → EDBEDREQ 08-30 02:59 → 2NB 08-30 03:32 → ENPENDDIS 08-30 08:51 → 2NB 09-01 12:07
PROVIDERS: Pediatrics; Student in an Organized Health Care Education/Training Program; ADMIT Student in an Organized Health Care Education/Training Program
DX: J45.51 Severe persistent asthma with (acute) exacerbation (principal); E66.01 Morbid (severe) obesity due to excess calories; Z68.41 Body mass index [BMI] 40.0-44.9, adult; E87.1 Hypo-osmolality and hyponatremia; E11.9 Type 2 diabetes mellitus without complications; Z87.891 Personal history of nicotine dependence; E78.5 Hyperlipidemia, unspecified; K21.9 Gastro-esophageal reflux disease without esophagitis; G47.33 Obstructive sleep apnea (adult) (pediatric); G89.29 Other chronic pain; M54.9 Dorsalgia, unspecified; F32.9 Major depressive disorder, single episode, unspecified; D50.9 Iron deficiency anemia, unspecified; R91.8 Other nonspecific abnormal finding of lung field; Z79.84 Long term (current) use of oral hypoglycemic drugs
CPT/HCPCS: 2NBP; 36415; 82436; 87070; 93005; 93010; 96374; J0456; J1650; J1815; J2920; J2930; J7040; J7608

== ENCOUNTER 2016-10-05 16:53 | Emergency (ER) | payer OTHER ==
[~2016-10-05] VITALS: Ht 193 cm; Wt 167.8 kg
[~2016-10-05 16:53] MED LIST changes: +ACETYLCYST200 MG/1 M INH; +GUAIFENESI100 MG/5 M PO
--- NOTE | 2016-10-05 17:15 | ED CARDIAC/CP/PALPITATIONS ---
History of Present Illness General Chief Complaint: General Adult Stated Complaint: SIB FOR CHEST XRAY, L SIDED CP Source: patient Exam Limitations: no limitations Vital Signs & Intake/Output Vital Signs & Intake/Output Vital Signs Date Time Temp Pulse Resp B/P B/P Pulse O2 O2 Flow FiO2 Mean Ox Delivery Rate 10/05 2329 96.5 80 18 131/80 100 Room Air 10/05 1708 96.6 88 18 131/86 100 Room Air Allergies Coded Allergies: NO KNOWN ALLERGIES (02/03/15) Reconcile Medications Acetylcysteine (Acetylcysteine) 200 MG/ML (20 %) VIAL 2 ML INH BID ASTHMA Albuterol Sulfate (Ventolin Hfa) 90 MCG HFA.AER.AD 2 PUF INH Q4-6 PRN PRN WHEEZING Amlodipine Besylate 10 MG TABLET 1 TAB PO DAILY BP (Reported) Aspirin (Ecotrin*) 81 MG TABLET.DR 1 TAB PO DAILY HEART/BLOOD (Reported) Azithromycin (Zithromax) 250 MG TABLET 1 TAB PO DAILY ASTHMA Codeine Phosphate/Guaifenesi (Cheratussin AC Syrup) 10 MG-100 MG/5 ML LIQUID 10 ML PO Q6 PRN cough Cyclobenzaprine HCl 10 MG TABLET 1 TAB PO TID MUSCLE SPASMS (Reported) Esomeprazole (Nexium) 40 MG CAPSULE.DR 1 CAP PO BID GI (Reported) Fluticasone/Salmeterol (Advair 500-50 Diskus) 500 MCG-50 MCG/DOSE BLST.W.DEV 1 PUF INH BID ASTHMA (Reported) Glimepiride (Amaryl) 4 MG TABLET 1 TAB PO BID DM (Reported) Guaifenesin (Mucinex) 600 MG TAB.ER.12H 1 TAB PO BID ASTHMA Guaifenesin 100 MG/5 ML LIQUID 10 ML PO Q4P PRN COUGH Hydrochlorothiazide 12.5 MG CAPSULE 1 CAP PO DAILY BP (Reported) Liraglutide (Victoza 3-Micah) 0.6 MG/0.1 ML (18 MG/3 ML) PEN.INJCTR 1.8 MG SC DAILY DM (Reported) Losartan Potassium (Cozaar) 25 MG TABLET 1 TAB PO DAILY HTN (Reported) Metformin HCl 1,000 MG TABLET 1,000 MG PO 0800,1700 DIABETES Montelukast Sodium 10 MG TABLET 10 MG PO AT BEDTIME ASTHMA Oxycodone HCl (Roxicodone) 15 MG TABLET 1 TAB PO 4 TIMES/DAY PAIN (Reported) Oxycodone HCl/Acetaminophen (Percocet 5-325 MG Tablet) 5 MG-325 MG TABLET 1-2 TAB PO Q6P PRN PAIN Prednisone 20 MG TABLET 10 MG PO DAILY ASTHMA 60 MG FOR 3 DAYS 50 MG FOR 3 DAYS 40 MG FOR 3 DAYS 30 MG FOR 3 DAYS 20 MG FOR 3 DAYS 10 MG FOR 3 DAYS AND THEN STOP Rosuvastatin Calcium (Crestor) 20 MG TABLET 1 TAB PO DAILY CHOLESTEROL ( Reported) Sertraline HCl 100 MG TABLET 1 TAB PO DAILY MENTAL HEALTH (Reported) Zolpidem Tartrate 10 MG TABLET 1 TAB PO QPM PRN SLEEP (Reported) Triage Note: PT TO ED FOR L SIDED CHEST PAIN WORSE WITH INSPIRATION X 1 DAY. Triage Nurses Notes Reviewed? yes Onset: Abrupt Duration: day(s): (1), constant, continues in ED Timing: recent history Quality/Severity: moderate, severe, sharp Radiation: no radiation Activities at Onset: none HPI: 50-year-old male comes into emergency room with complaints of left-sided rib pain has been going on since this morning when he woke up. Pain with a deep breath. History of high blood pressure cholesterol diabetes. Recently discharged here from the hospital. Nothing seems to make the symptoms better. Patient went to see his doctor today who told him to come to the hospital for further evaluation denies any cough. Denies any fever or chills. Past History Travel History Traveled to [place] past 21 day No Medical History Any Pertinent Medical History? see below for history Neurological: dizziness EENT: NONE Cardiovascular: hypertension, hyperlipidemia Respiratory: asthma, bronchitis Gastrointestinal: NONE Hepatic: NONE Renal: NONE Musculoskeletal: CELLULITIS Psychiatric: depression Endocrine: diabetes Blood Disorders: NONE Cancer(s): NONE BUSINESS OBJECTS/Reproductive: NONE Other Medical Hx: Hx of MRSA History of MRSA: No History of VRE: No History of CDIFF: No Pneumonia Vaccine: 04/03/16 Influenza Vaccine: 04/03/16 Surgical History Surgical History: partial lung removal splenectomy Psychosocial History Who do you live with Patient/Self Services at Home None What is your primary language Spanish Tobacco Use: Never used ETOH Use: occasional use Illicit Drug Use: denies illicit drug use Family History Family History, If Any: FATHER FH: diabetes mellitus SISTER FH: lymphoma Hx Contributory? No Review of Systems Review of Systems Constitutional: Reports: no symptoms. EENTM: Reports: no symptoms. Respiratory: Reports: see HPI. Cardiovascular: Reports: see HPI. GI: Reports: no symptoms. Genitourinary: Reports: no symptoms. Musculoskeletal: Reports: no symptoms. Skin: Reports: no symptoms. Neurological/Psychological: Reports: no symptoms. Hematologic/Endocrine: Reports: no symptoms. Immunologic/Allergic: Reports: no symptoms. All Other Systems: Reviewed and Negative Physical Exam Physical Exam General Appearance: no apparent distress, alert, awake, obese Head: atraumatic, normal appearance Eyes: Bilateral: normal appearance, EOMI. Ears, Nose, Throat: normal pharynx, normal ENT inspection, hearing grossly normal Neck: normal inspection, full range of motion Respiratory: normal breath sounds, no respiratory distress Cardiovascular: regular rate/rhythm Gastrointestinal: soft Back: normal inspection Extremities: normal inspection, normal range of motion, no edema Neurologic/Psych: awake, alert, oriented x 3 Skin: intact, normal color Core Measures ACS in differential dx? Yes Severe Sepsis Present: No Septic Shock Present: No Progress Differential Diagnosis: AMI, aortic dissection, atrial fibrillation, cholecystitis, costochondritis, hyperkalemia, hyperthyroid, hyperventilation, intracranial hemorrhage, musculoskeletal pain, pancreatitis, pericarditis, pneumonia, pneumothorax, pulmonary embolism, PUD/GERD, PVCs/PACs, respiratory failure, rib fracture, unstable angina, V-fib/V-Tach, WPW syndrome Plan of Care: Orders Procedure Date/time Status TROPONIN LEVEL 10/05 2140 Complete EKG 10/05 214 Active D-DIMER 10/05 1720 Complete Telemetry/Care Aid 10/05 171 Active TROPONIN LEVEL 10/05 171 Complete COMPREHENSIVE METABOLIC PANEL 10/05 171 Complete CBC WITHOUT DIFFERENTIAL 10/05 171 Complete EKG 10/05 1657 Active Laboratory Tests 10/05/16 2204: Troponin I 0.02 10/05/16 1813: D-Dimer 279 H 10/05/16 1740: Anion Gap 10, Estimated GFR > 60, BUN/Creatinine Ratio 16.3, Glucose 138 H, Calcium 9.4, Total Bilirubin 0.4, AST 19, ALT 36, Alkaline Phosphatase 107, Troponin I < 0.01, Total Protein 6.6, Albumin 3.8, Globulin 2.8, Albumin/ Globulin Ratio 1.4, CBC w Diff NO MAN DIFF REQ, RBC 4.06 L, MCV 86.8, MCH 29.2, RDW 15.8 H, MPV 8.0, Gran % 58.3, Lymphocytes % 27.5, Monocytes % 12.8 H, Eosinophils % 0.9, Basophils % 0.5, Absolute Granulocytes 3.9, Absolute Lymphocytes 1.8, Absolute Monocytes 0.9 H, Absolute Eosinophils 0.1, Absolute Basophils 0, PUBS MCHC 33.7 Diagnostic Imaging: Viewed by Me: Radiology Read, CT Scan. Discussed w/RAD: Radiology Read, CT Scan. Radiology Impression: SERVICE DATE: 10/05/16 EXAM TYPE: CAT - CTA CHEST- PULMONARY EMBOLISM EXAMINATION: CT ANGIOGRAM CHEST WITH AND WITHOUT CONTRAST (CT PULMONARY ANGIOGRAM FOR PE) CLINICAL INFORMATION: Left rib pain, elevated D- dimer. COMPARISON: Prior chest x-ray September 2016. CT chest June 2016. CT chest November 2015. CTA chest December 2014. TECHNIQUE: Prior to contrast administration, noncontrast localization images were obtained. Subsequently, multidetector volumetric imaging was performed from the thoracic inlet to below the diaphragms following the administration of 100 mL Optiray 320 intravenous contrast. No contrast reaction reported. Sagittal, coronal, and MIP oblique sagittal reformatted images were obtained on the CT workstation, uploaded to PACS, and reviewed. Total exam dose-length product 508 mGy-cm. FINDINGS: QUALITY OF STUDY/ CONTRAST BOLUS: Slightly limited because of the timing of the bolus. Only moderate density present within the pulmonary vessels. PULMONARY ARTERIES: No central or proximal pulmonary emboli. The distal interlobar segmental branches cannot be accurately evaluated for small emboli. No suspicious filling defects. THORACIC AORTA: No aneurysm or dissection. LUNG: Clear. PLEURA: There is some focal pleural thickening in the left upper hemithorax unchanged dating back to 2014. Scattered calcifications in the left pleura, unchanged. MEDIASTINUM: Normal heart size. No pericardial effusion. No hilar or mediastinal lymphadenopathy. No evidence of septal bowing or right heart strain. Small hiatal hernia. CHEST WALL/AXILLA: No axillary or internal mammary lymphadenopathy. OSSEOUS STRUCTURES: Multilevel spondylosis of the dorsal spine. UPPER ABDOMEN: Unremarkable. No reflux of contrast into the hepatic veins to suggest elevated right heart pressures. IMPRESSION: 1. Slightly limited examination as noted above. No central or proximal pulmonary emboli. Distal interlobar vessels cannot be adequately evaluated to exclude small distal emboli. 2. Stable pleural thickening and pleural calcification in the left hemithorax. No imaging follow-up necessary. 3. Small hiatal hernia. 4. No left rib abnormality. DICTATED BY: FLORY PRIDE MD DATE/TIME DICTATED:10/05/161933, SERVICE DATE: 10/05/16 EXAM TYPE: RAD - XRY-CHEST XRAY, PA AND LATERAL EXAMINATION: XR CHEST CLINICAL INFORMATION: Chest pain COMPARISON: Multiple priors, most recently 08/30/2016. TECHNIQUE: 2 views of the chest were obtained. FINDINGS: The lungs are well expanded. There is no focal consolidation , edema, or effusion. Nodular opacity overlying the periphery of the left midlung likely correlates to the pleural plaque seen on CT. Suture line noted at the left base. No pneumothorax. The cardiomediastinal silhouette is within normal limits. No acute osseous abnormality. IMPRESSION: No acute pulmonary findings. DICTATED BY: AMIE ARTEAGA MD DATE/TIME DICTATED:10/05/161736 GOLF COACH:MYRA Initial ED EKG: normal intervals, normal p-waves, normal sinus rhythm, rate (87) , PVCs Repeat EKG: changed (1 abn QRS, UNCHANGED OTHERWISE) Comments: 10/05/2016 11:47:41 PM [address] angiogram. No evidence of PE. Pain is worse with a deep breath and worse with range of motion making it likely more either pleurisy or musculoskeletal. Patient can follow-up with his primary care doctor. Case was discussed with Dr. Carias. The EKGs were reviewed both with Dr. Carias. He agrees with plan of care. Patient understands and agrees a plan of care. Reevaluated multiple times. Clinically looks well. In no apparent distress upon discharge. No respiratory distress here in the emergency room. His symptoms began earlier this morning. Patient has 2 normal troponins. Departure Departure Disposition: HOME OR SELF CARE Condition: Stable Clinical Impression Primary Impression: Rib pain on left side Secondary Impressions: Back pain Referrals: DEVIN ORTIZ (PCP/Family) Additional Instructions: Follow-up with your primary care doctor. Return to the emergency room if any concerns worsening symptoms. Take Percocet for pain. Please go over all results of today's visit with your primary care doctor. Contact your primary care doctor to let them know you were here in the emergency room. There may be nonspecific findings which may not be related to your visit today here in the emergency room but may require further evaluation and chronic monitoring by your primary care doctor. If you had a laceration today the chance of foreign body always remains. You should follow-up with your primary care doctor for recheck in 3-5 days for a wound check. If you had an x-ray done there is a chance that a fracture could have been missed on initial read and you should follow-up with your primary care doctor for repeat x-rays if symptoms persist. If your blood pressure was elevated here in the emergency room please have rechecked by her primary care doctor within the next 48 hours by your primary care doctor. If you were prescribed a narcotic here in the emergency room or any type of controlled substances you're not allowed to drive while taking this medication or operate any type of heavy machinery. Narcotics can make you feel lightheaded dizziness nausea and can cause constipation. You may need to cotton picker operator a stool softener. Thank you for choosing [facility] emergency room. Please return to the emergency room immediately if you have any other concerns worsening of symptoms. Departure Forms: Customer Survey General Discharge Information Prescriptions: Current Visit Scripts Oxycodone HCl/Acetaminophen (Percocet 5-325 MG Tablet) 1-2 TAB PO Q6P PRN PAIN #10 TAB Critical Care Note Critical Care Note Critical Care Time: non-applicable
--- NOTE | 2016-10-05 17:46 | RADIOLOGY REPORT ---
EXAMINATION: XR CHEST CLINICAL INFORMATION: Chest pain COMPARISON: Multiple priors, most recently 08/30/2016. TECHNIQUE: 2 views of the chest were obtained. FINDINGS: The lungs are well expanded. There is no focal consolidation, edema, or effusion. Nodular opacity overlying the periphery of the left midlung likely correlates to the pleural plaque seen on CT. Suture line noted at the left base. No pneumothorax. The cardiomediastinal silhouette is within normal limits. No acute osseous abnormality. IMPRESSION: No acute pulmonary findings.
[2016-10-05 18:00] LABS: ABSOLUTE BASOPHIL COUNT 0 /CUMM (0.0-0.2); ABSOLUTE EOSINOPHIL COUNT 0.1 /CUMM (0.0-0.7); ABSOLUTE GRANULOCYTE CT 3.9 /CUMM (1.4-6.5); ABSOLUTE LYMPH COUNT 1.8 /CUMM (1.2-3.4); ABSOLUTE MONOCYTE COUNT 0.9 /CUMM (0.10-0.60); BASOPHIL % 0.5 % (0.0-2.0); EOSINOPHIL % 0.9 % (0-5); GRANULOCYTE % 58.3 % (42.2-75.2); HEMATOCRIT 35.3 % (42-52); MEAN CORPUSCULAR HGB 29.2 PG (27.0-31.0); MEAN CORPUSCULAR HGB CONC 33.7 G/DL (33.0-37.0); MEAN CORPUSCULAR VOLUME 86.8 FL (80.0-94.0); PLATELET COUNT 397 /CUMM (130-400); RBC DISTRIBUTION WIDTH 15.8 % (11.5-14.5); RED BLOOD CELL CT 4.06 /CUMM (4.70-6.10); WHITE BLOOD CELL COUNT 6.7 /CUMM (4.8-10.8)
--- NOTE | 2016-10-05 20:19 | CT SCAN REPORT ---
EXAMINATION: CT ANGIOGRAM CHEST WITH AND WITHOUT CONTRAST (CT PULMONARY ANGIOGRAM FOR PE) CLINICAL INFORMATION: Left rib pain, elevated D-dimer. COMPARISON: Prior chest x-ray September 2016. CT chest June 2016. CT chest November 2015. CTA chest December 2014. TECHNIQUE: Prior to contrast administration, noncontrast localization images were obtained. Subsequently, multidetector volumetric imaging was performed from the thoracic inlet to below the diaphragms following the administration of 100 mL Optiray 320 intravenous contrast. No contrast reaction reported. Sagittal, coronal, and MIP oblique sagittal reformatted images were obtained on the CT workstation, uploaded to PACS, and reviewed. Total exam dose-length product 508 mGy-cm. FINDINGS: QUALITY OF STUDY/CONTRAST BOLUS: Slightly limited because of the timing of the bolus. Only moderate density present within the pulmonary vessels. PULMONARY ARTERIES: No central or proximal pulmonary emboli. The distal interlobar segmental branches cannot be accurately evaluated for small emboli. No suspicious filling defects. THORACIC AORTA: No aneurysm or dissection. LUNG: Clear. PLEURA: There is some focal pleural thickening in the left upper hemithorax unchanged dating back to 2014. Scattered calcifications in the left pleura, unchanged. MEDIASTINUM: Normal heart size. No pericardial effusion. No hilar or mediastinal lymphadenopathy. No evidence of septal bowing or right heart strain. Small hiatal hernia. CHEST WALL/AXILLA: No axillary or internal mammary lymphadenopathy. OSSEOUS STRUCTURES: Multilevel spondylosis of the dorsal spine. UPPER ABDOMEN: Unremarkable. No reflux of contrast into the hepatic veins to suggest elevated right heart pressures. IMPRESSION: 1. Slightly limited examination as noted above. No central or proximal pulmonary emboli. Distal interlobar vessels cannot be adequately evaluated to exclude small distal emboli. 2. Stable pleural thickening and pleural calcification in the left hemithorax. No imaging follow-up necessary. 3. Small hiatal hernia. 4. No left rib abnormality.
[2016-10-05] MEDS ORDERED: PERCOCET 5-3251 EACH PO (23:07)
[2016-10-05 23:29] VITALS: BP 131/80
[2016-11-08] MEDS ORDERED: COZAAR50 M1 PO (22:39)
[2016-11-08] MEDS ORDERED: HYDROCHLOROTHIA25 M1 PO (22:39)
[2016-11-08] MEDS ORDERED: NAPROXEN500 M2 PO (22:40)
[2016-11-08] MEDS ORDERED: LEVEMIR FL100 UNIT/1 SC (22:41)
[2016-11-08] MEDS ORDERED: ALBUTEROL2.5 MG/3 M INH/SOL (22:41)
[2016-11-09] MEDS ORDERED: AUGMENTIN 875-1 EACH PO (00:03)
== END 2016-10-05 23:30 ==
LOC: ERH 16:53
PROVIDERS: Physician Assistant Medical
DX: R07.81 Pleurodynia (principal); M54.9 Dorsalgia, unspecified
CPT/HCPCS: 93005; 93010

== ENCOUNTER 2017-05-31 16:29 | Inpatient (IN) | payer OTHER ==
[~2017-05-31] VITALS: Ht 193 cm; Wt 158.8 kg
[~2017-05-31 16:29] MED LIST changes: +ALBUTEROL2.5 MG/3 M INH/SOL; +AUGMENTIN 875-1 EACH PO; +BACTRIM DS TAB1 EACH PO; +GLUCOPHAGE1000 M1 PO; +HYDROCHLOROTHIA25 M1 PO; +LASIX20 M1 PO; +METFORMIN HCL500 M3 PO; +NOVOLOG100 UNIT/2 SC; +PERCOCET 5-3251 EACH PO; +PREDNISONE50 M1 PO; -ROXICODONE15 M1 PO; +ROXICODONE5 M1 PO
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
[2017-05-31 18:58] LABS: ABSOLUTE BASOPHIL COUNT 0 /CUMM (0.0-0.2); ABSOLUTE EOSINOPHIL COUNT 0.3 /CUMM (0.0-0.7); ABSOLUTE GRANULOCYTE CT 8.1 /CUMM (1.4-6.5); ABSOLUTE LYMPH COUNT 2.2 /CUMM (1.2-3.4); ABSOLUTE MONOCYTE COUNT 0.9 /CUMM (0.10-0.60); BASOPHIL % 0.3 % (0.0-2.0); EOSINOPHIL % 2.3 % (0-5); GRANULOCYTE % 70.3 % (42.2-75.2); MEAN CORPUSCULAR HGB 27.4 PG (27.0-31.0); MEAN CORPUSCULAR HGB CONC 31.9 G/DL (33.0-37.0); MEAN PLATELET VOLUME 8.6 FL (7.4-10.4); PLATELET COUNT 424 /CUMM (130-400); RBC DISTRIBUTION WIDTH 17.2 % (11.5-14.5); RED BLOOD CELL CT 3.84 /CUMM (4.70-6.10); WHITE BLOOD CELL COUNT 11.5 /CUMM (4.8-10.8)
--- NOTE | 2017-05-31 18:58 | CT SCAN REPORT ---
EXAMINATION: CT ANGIOGRAM OF THE CHEST WITH AND WITHOUT CONTRAST (CT PULMONARY ANGIOGRAM FOR PE) CLINICAL INFORMATION: PLEURITIC LEFT LATERAL CHEST PAIN, HEMOPTYSIS. COMPARISON: CT of chest 10/05/2016 TECHNIQUE: Prior to contrast administration, noncontrast localization images were obtained. Subsequently, multidetector volumetric imaging was performed from the thoracic inlet to below the diaphragms following the administration of 95 mL Optiray 350 intravenous contrast. No contrast reaction reported. Sagittal, coronal, and MIP oblique sagittal reformatted images were obtained on the CT workstation, uploaded to PACS, and reviewed. Total exam dose-length product 632.94 mGy-cm. FINDINGS: QUALITY OF STUDY/CONTRAST BOLUS: Limited opacification of the pulmonary arteries. There is better opacification of the aorta. PULMONARY ARTERIES: No gross evidence of central pulmonary emboli. THORACIC AORTA: No aneurysm or dissection. LUNG: There is diffuse alveolar patchy airspace opacity in the left lung involving the upper lobe lingula and lower lobe. No focal air bronchograms. Right lung is clear. Central bronchial airways are open. No bronchiectasis. No interstitial or reticular opacity. PLEURA: No pleural effusion or pneumothorax. MEDIASTINUM: Normal heart size. No pericardial effusion. No hilar or mediastinal lymphadenopathy. No evidence of septal bowing or right heart strain. CHEST WALL/AXILLA: No axillary or internal mammary lymphadenopathy. OSSEOUS STRUCTURES: No acute or suspicious osseous abnormality. UPPER ABDOMEN: Unremarkable. No reflux of contrast into the hepatic veins to suggest elevated right heart pressures. IMPRESSION: 1. No evidence of pulmonary embolism. 2. Diffuse airspace infiltrate in left lung. VTE: negative
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
[2017-05-31 22:47] VITALS: BP 148/88
--- NOTE | 2017-06-01 06:05 | Admission Certification ---
Admission Certification Certification Statement - As attending physician, I certify that at the time of - admission, based on clinical presentation, severity of - symptoms, need for further diagnostic testing and - therapeutic interventions, and risk of adverse outcomes - without in-hospital treatment, in my clinical assessment, - this patient requires an acute hospital stay for a minimum - of two nights or longer. I have also considered psychsocial - factors such as support system, advanced age, financial - issues, cognitive issues, and failed out-patient treatments, - past re-admission history, safety of patient, and lack of - compliance as applicable. Specific rationale supporting this admission is: Pneumonia
[2017-06-01 06:38] VITALS: BP 136/82
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
[2017-06-01 09:43] LABS: ABSOLUTE BASOPHIL COUNT 0.1 /CUMM (0.0-0.2); ABSOLUTE EOSINOPHIL COUNT 0.3 /CUMM (0.0-0.7); ABSOLUTE GRANULOCYTE CT 7.8 /CUMM (1.4-6.5); ABSOLUTE LYMPH COUNT 2.5 /CUMM (1.2-3.4); ABSOLUTE MONOCYTE COUNT 0.9 /CUMM (0.10-0.60); BASOPHIL % 0.5 % (0.0-2.0); EOSINOPHIL % 2.5 % (0-5); GRANULOCYTE % 67.7 % (42.2-75.2); HEMATOCRIT 29.7 % (42-52); MEAN CORPUSCULAR HGB 28.1 PG (27.0-31.0); MEAN CORPUSCULAR HGB CONC 32.8 G/DL (33.0-37.0); MEAN CORPUSCULAR VOLUME 85.8 FL (80.0-94.0); MEAN PLATELET VOLUME 8.5 FL (7.4-10.4); PLATELET COUNT 396 /CUMM (130-400); RBC DISTRIBUTION WIDTH 16.6 % (11.5-14.5); RED BLOOD CELL CT 3.46 /CUMM (4.70-6.10); WHITE BLOOD CELL COUNT 11.5 /CUMM (4.8-10.8)
--- NOTE | 2017-06-01 10:52 | Cons- Pulmonary ---
General Information and HPI Consulting Request Date of Consult: 06/01/17 Requested By: Dr. Guerrier Reason for Consult: dyspnea Source of Information: patient Exam Limitations: no limitations History of Present Illness: 51 year old man, asthma, JO, elevated IgE previously. Presented with dyspnea, LLL airspace disease, brownish/blood streaked sputum. No fevers or wbc. cocaine use afer recreation (rare use). He was started on Ceftriaxone/Zithromax. He is a candidate for xolair. He continues to have sputum production. Steroids are at 40q12h. He is on singulair and inhalers. No n/v/d/c. No OMER. Some discomfort on left side of chest that has improved. Allergies/Medications Allergies: Coded Allergies: No Known Allergies (11/08/16) Home Med List: Albuterol Sulfate 2.5 MG/3 ML (0.083 %) VIAL.NEB 1 Vial INH/ANUPAMA PRN RESPIRATORY (Reported) Albuterol Sulfate (Ventolin Hfa) 90 MCG HFA.AER.AD 2 PUF INH Q4-6 PRN PRN asthma Albuterol Sulfate (Ventolin Hfa) 90 MCG HFA.AER.AD 2 PUF INH Q4-6 PRN PRN WHEEZING Amlodipine Besylate 10 MG TABLET 1 TAB PO DAILY BP (Reported) Aspirin (Ecotrin*) 81 MG TABLET.DR 1 TAB PO DAILY HEART/BLOOD (Reported) Azithromycin 250 MG TABLET 250 MG PO DAILY Shortness of breath Codeine Phosphate/Guaifenesi (Cheratussin AC Syrup) 10 MG-100 MG/5 ML LIQUID 10 ML PO Q4P PRN COUGH Cyclobenzaprine HCl 10 MG TABLET 1 TAB PO TID MUSCLE SPASMS (Reported) Esomeprazole (Nexium) 40 MG CAPSULE.DR 1 CAP PO BID GI (Reported) Fluticasone/Salmeterol (Advair 500-50 Diskus) 500 MCG-50 MCG/DOSE BLST.W.DEV 1 PUF INH BID ASTHMA Glimepiride (Amaryl) 4 MG TABLET 1 TAB PO BID DM Hydrochlorothiazide 25 MG TABLET 1 TAB PO DAILY BP (Reported) Insulin Aspart (Novolog) 100 UNIT/ML VIAL 0 SC AD TIDAC TAKE DIRECTED 30 MINS BEFORE MEALS 3 TIMES A DAY blood sugar-------give <150 0 units 151-200 give 4 units 201-250 give 6 units 251-300 give 8 units 301-350 give 10 units 351-400 give 12 units 400+ give 14 units Insulin Detemir (Levemir) 100 UNIT/ML VIAL 20 UNITS SC DAILY DM Liraglutide (Victoza 3-Micah) 0.6 MG/0.1 ML (18 MG/3 ML) PEN.INJCTR 1.8 MG SC DAILY DM Losartan Potassium (Cozaar) 50 MG TABLET 1 TAB PO DAILY BP (Reported) Metformin HCl (Glucophage) 1,000 MG TABLET 1 TAB PO BID DM Metformin HCl 500 MG TABLET 2 TAB PO BID DM Montelukast Sodium 10 MG TABLET 10 MG PO AT BEDTIME ASTHMA Naproxen 500 MG TABLET 1 TAB PO BID PAIN (Reported) Oxycodone HCl (Roxicodone) 5 MG TABLET 2 TAB PO Q6P PRN PAIN (Reported) Prednisone 10 MG TABLET 10 MG PO DAILY STEROID TAPER On Take 05/12 60 MG (6 tabs) 05/13-05/14 50 MG (5 tabs) 05/15-05/16 40 MG (4 tabs) 05/17-05/18 30 MG (3 tabs) 05/19-05/20 20 MG (2 tab) 05/21-05/22 10 MG (1 tab) Then Stop Rosuvastatin Calcium (Crestor) 20 MG TABLET 1 TAB PO DAILY CHOLESTEROL ( Reported) Sertraline HCl 100 MG TABLET 1 TAB PO DAILY MENTAL HEALTH (Reported) Zolpidem Tartrate 10 MG TABLET 1 TAB PO QPM PRN SLEEP (Reported) Current Medications: Current Medications Sig/Elodia Start time Last Medication Dose Route Stop Time Status Admin Acetaminophen 650 MG Q6PRN PRN 05/31 2129 AC PO Acetaminophen 1,000 MG Q6PRN PRN 05/31 2130 DC IV Albuterol Sulfate 3 ML EVERY 4 HRS/AWAKE 06/01 1200 AC 06/01 INH 1037 Albuterol Sulfate 2 PUF Q4-6 PRN PRN 05/31 2345 AC INH Amlodipine Besylate 10 MG DAILY 06/01 1000 AC 06/01 PO 0858 Atorvastatin Calcium 80 MG 1700 06/01 1700 AC PO Azithromycin 500 MG DAILY 06/01 1000 DC Sodium Chloride 250 ML IV Azithromycin 500 MG DAILY 06/01 1000 AC 06/01 Dextrose/Water 250 ML IV 0900 Azithromycin 500 MG ONCE ONE 05/31 1929 DC 05/31 Sodium Chloride 250 ML IV 05/31 Budesonide/ 2 PUF BID 05/31 2199 AC 06/01 Formoterol Fumarate INH 0859 Ceftazidime 1,000 MG ONCE ONE 05/31 1914 CAN IV 05/31 1915 Ceftriaxone Sodium 1,000 MG DAILY 06/01 1000 AC 06/01 IV 0858 Ceftriaxone Sodium 0 .STK-MED ONE 05/31 2016 DC .ROUTE Ceftriaxone Sodium 1,000 MG ONCE ONE 05/31 1929 DC 05/31 IV 05/31 Cyclobenzaprine HCl 10 MG TID 05/31 2199 AC 06/01 PO 0859 Guaifenesin 10 ML Q6P PRN 05/31 2215 AC PO Hydrochlorothiazide 25 MG DAILY 06/01 1000 AC 06/01 PO 0858 Insulin Aspart 0 TIDAC/HS 06/01 0800 AC SC Insulin Detemir 10 UNITS DAILY 06/01 1000 AC 06/01 SC 0858 Ipratropium [place] 2.5 ML EVERY 4 HRS/AWAKE 06/01 1200 AC 06/01 INH 1037 Losartan Potassium 50 MG DAILY 06/01 1000 AC 06/01 PO 0859 Methylprednisolone 40 MG Q12 06/01 1024 AC IV Montelukast Sodium 10 MG AT BEDTIME 05/31 220 AC 05/31 PO 2349 Morphine Sulfate 0 .STK-MED ONE 05/31 2214 DC .ROUTE Morphine Sulfate 2 MG Q4P PRN 05/31 2129 AC IV Morphine Sulfate 0 .STK-MED ONE 05/31 2016 DC .ROUTE Morphine Sulfate 4 MG ONCE ONE 05/31 1929 DC 05/31 IV 05/31 Omeprazole 40 MG BID 05/31 2199 AC 06/01 PO 0858 Oxycodone HCl 15 MG Q4-6 PRN 05/31 2200 AC 06/01 PO 0930 Sertraline HCl 100 MG DAILY 06/01 1000 AC 06/01 PO 0900 Sodium Chloride 1,000 ML Q13H 05/31 2300 AC 05/31 IV 2359 Sodium Chloride 1,000 ML BOLUS ONE 05/31 223 CAN IV 05/31 232 Vancomycin HCl 1,000 MG ONCE ONE 05/31 1914 CAN Sodium Chloride 250 ML IV 05/31 2013 Zolpidem Tartrate 10 MG QPM PRN 05/31 2200 AC 06/01 PO 0013 Review of Systems Comments 18 point review of systems was performed and reviewed. Please see pertinent positives and pertinent negatives in the HPI. Otherwise ROS is negative. Past History Travel History Traveled to [place] past 21 day No Medical History Blood Transfusion Hx: Yes Neurological: NONE EENT: NONE Cardiovascular: hypertension, hyperlipidemia Respiratory: asthma, bronchitis, obstructive sleep apnea Gastrointestinal: NONE Hepatic: NONE Renal: NONE Musculoskeletal: chronic back pain, CELLULITIS Psychiatric: depression Endocrine: diabetes Blood Disorders: NONE Cancer(s): NONE AREA FORESTER/Reproductive: NONE Other Medical Hx: Hx of MRSA Surgical History Surgical History: partial lung removal splenectomy (1988) Family History Relations & Conditions If Any: FATHER FH: diabetes mellitus SISTER FH: lymphoma MOTHER FH: uterine cancer FHx: esophageal cancer Psychosocial History Where Do You Live? Home Who Do You Live With? self Services at Home: None Primary Language: Niuean Smoking Status: Former Smoker ETOH Use: occasional use Illicit Drug Use: cocaine Functional Ability ADLs Independent: dressing, eating, toileting, bathing. Ambulation: independent IADLs Independent: shopping, housework, finances, food prep, telephone, transportation , medication admin. Exam & Diagnostic Data Last 24 Hrs of Vital Signs/I&O Vital Signs Date Time Temp Pulse Resp B/P B/P Pulse O2 O2 Flow FiO2 Mean Ox Delivery Rate 06/01 1028 Room Air Room Air 06/01 1027 98 Room Air Room Air 06/01 0638 97.9 70 18 136/82 95 Room Air 06/01 0108 77 96 06/01 0000 Room Air 05/31 2247 97.9 86 22 148/88 94 05/31 2240 Room Air 05/31 2122 91 19 130/79 98 Room Air 05/31 1920 98.5 99 19 131/82 99 Room Air 05/31 1848 Room Air 05/31 1638 97.7 92 18 162/89 96 Room Air Intake & Output 06/01 1600 06/01 0800 06/01 0000 Intake Total 800 0 Output Total Balance 800 0 Intake, IV 300 Intake, Oral 500 0 Number 0 Bowel Movements Patient 350 lb Weight Weight Reported by Patient Measurement Method Physical Exam Other Physical Findings: gen awake and alert heent ncat cvs s1, s2 lungs rare rhonchi abd obese ext trace edema Last 48 Hrs of Labs/Darren: Laboratory Tests 06/01/17 0817: Anion Gap 13, Estimated GFR > 60, BUN/Creatinine Ratio 21.4, CBC w Diff NO MAN DIFF REQ, RBC 3.46 L, MCV 85.8, MCH 28.1, RDW 16.6 H, MPV 8.5, Gran % 67.7, Lymphocytes % 21.4, Monocytes % 7.9, Eosinophils % 2.5, Basophils % 0.5, Absolute Granulocytes 7.8 H, Absolute Lymphocytes 2.5, Absolute Monocytes 0.9 H, Absolute Eosinophils 0.3, Absolute Basophils 0.1, PUBS MCHC 32.8 L 06/01/17 0134: Lactic Acid Cancelled 06/01/17 0010: Troponin I < 0.01 06/01/17 0010: Lactic Acid 1.3 05/31/17 1828: Anion Gap 13, Estimated GFR > 60, BUN/Creatinine Ratio 21.4, Glucose 126 H, Calcium 9.2, Iron 28 L, TIBC 340, Ferritin 46.5, Troponin I < 0.01, CBC w Diff NO MAN DIFF REQ, RBC 3.84 L, MCV 86.0, MCH 27.4, RDW 17.2 H, MPV 8.6, Gran % 70.3, Lymphocytes % 19.3 L, Monocytes % 7.8, Eosinophils % 2.3, Basophils % 0.3 , Absolute Granulocytes 8.1 H, Absolute Lymphocytes 2.2, Absolute Monocytes 0.9 H, Absolute Eosinophils 0.3, Absolute Basophils 0, PUBS MCHC 31.9 L Assessment/Plan Impression/Plan: Impression 51 year old man, asthma, JO, elevated IgE previously. Presented with dyspnea, LLL airspace disease, brownish/blood streaked sputum. No fevers or wbc. cocaine use afer recreation (rare use). He was started on Ceftriaxone/Zithromax. He is a candidate for xolair. He continues to have sputum production. Steroids are at 40q12h. He is on singulair and inhalers. No n/v/d/c. No OMER. Some discomfort on left side of chest that has improved. Plan -keep solumedrol today, probably reduce to po prednisone tomorrow -monitor finger sticks -candidate for outpatient xolair (Will be arranged) -cocaine cessation (counseled) -okay with codeine cough syrup -trc/nebs -cont ceftriaxone/zithromax, check flu,legionella,strep ag, sputum cxxxxx DVT prophylaxis at all times Consult Acknowledgment - Thank you for your consult request.
[2017-06-01 15:03] VITALS: BP 150/80
[2017-06-01 22:51] VITALS: BP 154/70
[2017-06-02 06:00] VITALS: BP 144/66
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
[2017-06-02 09:23] LABS: ABSOLUTE BASOPHIL COUNT 0 /CUMM (0.0-0.2); ABSOLUTE EOSINOPHIL COUNT 0 /CUMM (0.0-0.7); ABSOLUTE GRANULOCYTE CT 11.3 /CUMM (1.4-6.5); ABSOLUTE LYMPH COUNT 1.3 /CUMM (1.2-3.4); ABSOLUTE MONOCYTE COUNT 0.4 /CUMM (0.10-0.60); BASOPHIL % 0 % (0.0-2.0); EOSINOPHIL % 0 % (0-5); HEMATOCRIT 30.3 % (42-52); MEAN CORPUSCULAR HGB 27.7 PG (27.0-31.0); MEAN CORPUSCULAR HGB CONC 32.6 G/DL (33.0-37.0); MEAN CORPUSCULAR VOLUME 84.9 FL (80.0-94.0); MEAN PLATELET VOLUME 8.6 FL (7.4-10.4); PLATELET COUNT 449 /CUMM (130-400); RBC DISTRIBUTION WIDTH 16.5 % (11.5-14.5); RED BLOOD CELL CT 3.57 /CUMM (4.70-6.10)
--- NOTE | 2017-06-02 11:49 | PN- Pulmonary ---
Subjective HPI/Critical Care Issues: pt seen and examined comfortable on exertion still with dyspnea cough and rib pain persist Objective Current Medications: Current Medications Sig/Elodia Start time Last Medication Dose Route Stop Time Status Admin Acetaminophen 650 MG .STK-MED ONE 06/01 1900 DC PO 06/01 1901 Acetaminophen 650 MG Q6PRN PRN 05/31 2130 AC 06/02 PO 0854 Albuterol Sulfate 3 ML EVERY 4 HRS/AWAKE 06/01 1200 AC 06/02 INH 0947 Albuterol Sulfate 2 PUF Q4-6 PRN PRN 05/31 2345 AC INH Amlodipine Besylate 10 MG DAILY 06/01 1000 AC 06/02 PO 0855 Atorvastatin Calcium 80 MG 1700 06/01 1700 AC 06/01 PO 1545 Azithromycin 500 MG DAILY 06/01 1000 AC 06/02 Dextrose/Water 250 ML IV 0938 Budesonide/ 2 PUF BID 05/31 2200 AC 06/02 Formoterol Fumarate INH 0859 Ceftriaxone Sodium 1,000 MG DAILY 06/01 1000 AC 06/02 IV 0852 Codeine 15 MG Q6 PRN 06/02 0945 DC PO Cyclobenzaprine HCl 10 MG TID 05/31 2200 AC 06/02 PO 0854 Ferrous Sulfate 325 MG DAILY 06/02 1000 AC PO Guaifenesin 10 ML .STK-MED ONE 06/01 2153 DC PO 06/01 2154 Guaifenesin 10 ML .STK-MED ONE 06/01 1544 DC PO 06/01 1545 Guaifenesin 10 ML Q6P PRN 05/31 2215 DC 06/02 PO 0854 Guaifenesin/Codeine 10 ML Q6P PRN 06/02 1030 AC 06/02 Phosphate PO 1106 Hydrochlorothiazide 25 MG DAILY 06/01 1000 AC 06/02 PO 0854 Insulin Aspart 0 TIDAC/HS 06/01 0800 AC 06/02 SC 0850 Insulin Detemir 10 UNITS BID 06/02 2200 AC SC Insulin Detemir 10 UNITS DAILY 06/01 1000 DC 06/02 SC 0850 Ipratropium [place] 2.5 ML EVERY 4 HRS/AWAKE 06/01 1200 AC 06/02 INH 0947 Losartan Potassium 50 MG DAILY 06/01 1000 AC 06/02 PO 0855 Methylprednisolone 40 MG Q12 06/01 1024 AC 06/02 IV 0852 Montelukast Sodium 10 MG AT BEDTIME 05/31 2199 AC 06/01 PO 2156 Morphine Sulfate 2 MG Q4P PRN 05/31 213 AC 06/02 IV 0853 Omeprazole 40 MG BID 05/31 2199 AC 06/02 PO 0854 Oxycodone HCl 15 MG Q4-6 PRN 05/31 2199 AC 06/02 PO 0937 Polyethylene Glycol 17 GM DAILY PRN 06/02 0845 AC PO Senna/Docusate Sodium 1 TAB BID PRN 06/02 0845 AC PO Sertraline HCl 100 MG DAILY 06/01 1000 AC 06/02 PO 0854 Sodium Chloride 1,000 ML Q13H 05/31 2300 AC 06/02 IV 0321 Zolpidem Tartrate 10 MG QPM PRN 05/31 2199 AC 06/01 PO 2340 Vital Signs & I&O Last 24 Hrs of Vitals and I&O: Vital Signs Date Time Temp Pulse Resp B/P B/P Pulse O2 O2 Flow FiO2 Mean Ox Delivery Rate 06/02 0952 96 Room Air 06/02 0855 144/66 06/02 0855 144/66 06/02 0600 97.8 83 20 144/66 93 Room Air 06/02 0304 94 Room Air 06/02 0102 80 93 06/01 2251 98.0 90 20 154/70 95 Room Air 06/01 1707 98 Room Air Room Air 06/01 1600 98 Room Air 06/01 1503 96.4 80 20 150/80 93 Intake & Output 06/02 1600 06/02 0800 06/02 0000 Intake Total 900 1000 Output Total Balance 900 1000 Intake, IV 600 300 Intake, Oral 300 700 Exam Other Physical Findings: gen awake and alert heent ncat cvs s1, s2 lungs rare rhonchi abd obese ext trace edema Results Last 24 Hrs of Lab Results: Laboratory Tests 06/02/17 0802: Anion Gap 15, Estimated GFR > 60, BUN/Creatinine Ratio 22.9, Bfj-H-Unecampggmp Pept 301 H, CBC w Diff NO MAN DIFF REQ, RBC 3.57 L, MCV 84.9, MCH 27.7, RDW 16.5 H, MPV 8.6, Gran % 87.0 H, Lymphocytes % 9.9 L, Monocytes % 3.1, Eosinophils % 0, Basophils % 0, Absolute Granulocytes 11.3 H, Absolute Lymphocytes 1.3, Absolute Monocytes 0.4, Absolute Eosinophils 0, Absolute Basophils 0, PUBS MCHC 32.6 L 06/01/17 1240: Urine Opiates Screen 1366.00, Methadone Screen < 40, Barbiturate Screen < 60, Ur Phencyclidine Scrn < 6.00, Amphetamines Screen < 100, U Benzodiazepines Scrn 94, Urine Cocaine Screen 386 H, Urine Cannabis Screen 5.70 Impression/Plan Impression/Plan Impression/Plan: Impression 51 year old man, asthma, JO, elevated IgE previously. * acute exacerbation of asthma likely secondary to CAP Plan -keep solumedrol today, if better 06/03 will consider po prednisone (60mg) -monitor finger sticks -candidate for outpatient xolair (Will be arranged) -cocaine cessation (counseled) -okay with codeine cough syrup - please order -trc/nebs -cont ceftriaxone/zithromax DVT prophylaxis at all times
[2017-06-02 14:45] VITALS: BP 140/60
--- NOTE | 2017-06-02 19:04 | Event Note ---
Event Note Event Note: Blood culture is positive for gram +ve cocci in clusters one out of four bottles.
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
[2017-06-02 22:42] VITALS: BP 160/60
[2017-06-03 04:17] VITALS: BP 150/88
[2017-06-03 06:52] VITALS: BP 138/78
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
--- NOTE | 2017-06-03 11:37 | PN- Pulmonary ---
Subjective HPI/Critical Care Issues: pt seen and examined hemodynamically stable no fever wbc 13 (on steroids) bcx with staph coag neg (could be contaminant) Objective Current Medications: Current Medications Sig/Elodia Start time Last Medication Dose Route Stop Time Status Admin Acetaminophen 650 MG .STK-MED ONE 06/02 1541 DC PO 06/02 1542 Acetaminophen 650 MG Q6PRN PRN 05/31 2130 AC 06/02 PO 1542 Albuterol Sulfate 3 ML EVERY 4 HRS/AWAKE 06/01 1200 AC 06/03 INH 0820 Albuterol Sulfate 2 PUF Q4-6 PRN PRN 05/31 2345 AC INH Amlodipine Besylate 10 MG DAILY 06/01 1000 AC 06/03 PO 0927 Atorvastatin Calcium 80 MG 1700 06/01 1700 AC 06/02 PO 1542 Azithromycin 500 MG DAILY 06/01 1000 AC 06/02 Dextrose/Water 250 ML IV 0938 Budesonide/ 2 PUF BID 05/31 2200 AC 06/02 Formoterol Fumarate INH 2123 Ceftriaxone Sodium 1,000 MG DAILY 06/03 1000 AC 06/03 IV 0928 Ceftriaxone Sodium 1,000 MG DAILY 06/01 1000 DC 06/02 IV 0852 Cyclobenzaprine HCl 10 MG TID 05/31 2200 AC 06/03 PO 0928 Ferrous Sulfate 325 MG DAILY 06/02 1000 AC 06/03 PO 0928 Guaifenesin/Codeine 10 ML Q6P PRN 06/02 1030 AC 06/03 Phosphate PO 0608 Hydrochlorothiazide 25 MG DAILY 06/01 1000 AC 06/03 PO 0928 Insulin Aspart 0 TIDAC/HS 06/02 1700 AC 06/03 SC 0928 Insulin Aspart 0 TIDAC/HS 06/01 0800 DC 06/02 SC 1159 Insulin Detemir 10 UNITS BID 06/02 220 [facility] Insulin Detemir 7 UNITS BID 06/02 2200 AC 06/03 SC 0929 Ipratropium Griffin 2.5 ML EVERY 4 HRS/AWAKE 06/01 1200 AC 06/03 INH 0820 Losartan Potassium 50 MG DAILY 06/01 1000 AC 06/03 PO 0928 Methylprednisolone 40 MG Q12 06/01 1024 AC 06/03 IV 0928 Montelukast Sodium 10 MG AT BEDTIME 05/31 2200 AC 06/02 PO 2124 Morphine Sulfate 2 MG Q4P PRN 05/31 2130 AC 06/03 IV 0929 Omeprazole 40 MG BID 05/31 220 AC 06/03 PO 0928 Oxycodone HCl 15 MG Q4-6 PRN 05/31 220 AC 06/03 PO 1004 Polyethylene Glycol 17 GM DAILY PRN 06/02 0945 AC 06/02 PO 1159 Senna/Docusate Sodium 1 TAB BID PRN 06/02 0945 AC 06/02 PO 2218 Sertraline HCl 100 MG DAILY 06/01 1000 AC 06/03 PO 0927 Sodium Chloride 1,000 ML Q13H 05/31 2300 AC 06/02 IV 2124 Vancomycin HCl 2,000 MG ONCE ONE 06/02 2199 DC 06/02 Sodium Chloride 500 ML IV 06/02 2359 2238 Zolpidem Tartrate 10 MG QPM PRN 05/31 2199 AC 06/01 PO 2340 Vital Signs & I&O Last 24 Hrs of Vitals and I&O: Vital Signs Date Time Temp Pulse Resp B/P B/P Pulse O2 O2 Flow FiO2 Mean Ox Delivery Rate 06/03 0828 140/80 06/03 0927 140/80 06/03 0820 93 Room Air 06/03 0800 95 Room Air 06/03 0652 97.7 86 20 138/78 95 06/03 0417 97.5 90 20 150/88 94 CPAP 06/03 0239 67 97 06/03 0232 95 Room Air 06/03 0000 Room Air 06/02 2242 98.6 86 20 160/60 93 Room Air 06/02 1630 96 Room Air 06/02 1445 98.7 90 20 140/60 96 Intake & Output 06/03 1600 06/03 0800 06/03 0000 Intake Total 850 780 Output Total Balance 850 780 Intake, IV 450 300 Intake, Oral 400 480 Number 0 Bowel Movements Impression/Plan Impression/Plan Impression/Plan: Impression 51 year old man, asthma, JO, elevated IgE previously. * acute exacerbation of asthma likely secondary to CAP hemodynamically stable no fever wbc 13 (on steroids) bcx with staph coag neg (could be contaminant) Plan -keep solumedrol today 06/03 (keep iv for now), if better 06/04 will consider po prednisone (60mg) -monitor finger sticks -candidate for outpatient xolair (Will be arranged) -cocaine cessation (counseled) -continue codeine cough syrup -trc/nebs -cont ceftriaxone/zithromax - got a dose of vancomycin, likely contaminant staph coag neg DVT prophylaxis at all times
[2017-06-03 12:33] LABS: ABSOLUTE BASOPHIL COUNT 0 /CUMM (0.0-0.2); ABSOLUTE EOSINOPHIL COUNT 0 /CUMM (0.0-0.7); EOSINOPHIL % 0 % (0-5); RED BLOOD CELL CT 3.54 /CUMM (4.70-6.10)
[2017-06-03 12:41] LABS: ABSOLUTE GRANULOCYTE CT 15.5 /CUMM (1.4-6.5); ABSOLUTE LYMPH COUNT 1.5 /CUMM (1.2-3.4); ABSOLUTE MONOCYTE COUNT 0.6 /CUMM (0.10-0.60); BASOPHIL % 0.1 % (0.0-2.0); HEMATOCRIT 29.9 % (42-52); MEAN CORPUSCULAR HGB 27.8 PG (27.0-31.0); MEAN CORPUSCULAR HGB CONC 32.9 G/DL (33.0-37.0); MEAN CORPUSCULAR VOLUME 84.4 FL (80.0-94.0); MEAN PLATELET VOLUME 8.3 FL (7.4-10.4); PLATELET COUNT 463 /CUMM (130-400); RBC DISTRIBUTION WIDTH 16.3 % (11.5-14.5); WHITE BLOOD CELL COUNT 17.6 /CUMM (4.8-10.8)
[2017-06-03 12:59] LABS: GRANULOCYTE % 88.1 % (42.2-75.2)
[2017-06-03 15:32] VITALS: BP 140/70
[2017-06-03 22:14] VITALS: BP 150/80
[2017-06-04 06:59] VITALS: BP 142/82
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
[2017-06-04 09:55] LABS: ABSOLUTE BASOPHIL COUNT 0.1 /CUMM (0.0-0.2); ABSOLUTE EOSINOPHIL COUNT 0 /CUMM (0.0-0.7); ABSOLUTE GRANULOCYTE CT 14.4 /CUMM (1.4-6.5); ABSOLUTE LYMPH COUNT 2.4 /CUMM (1.2-3.4); ABSOLUTE MONOCYTE COUNT 0.8 /CUMM (0.10-0.60); BASOPHIL % 0.3 % (0.0-2.0); EOSINOPHIL % 0 % (0-5); GRANULOCYTE % 81.4 % (42.2-75.2); HEMATOCRIT 30.5 % (42-52); MEAN CORPUSCULAR HGB 27.7 PG (27.0-31.0); MEAN CORPUSCULAR HGB CONC 32.5 G/DL (33.0-37.0); MEAN CORPUSCULAR VOLUME 85.2 FL (80.0-94.0); MEAN PLATELET VOLUME 8.3 FL (7.4-10.4); PLATELET COUNT 492 /CUMM (130-400); RED BLOOD CELL CT 3.58 /CUMM (4.70-6.10); WHITE BLOOD CELL COUNT 17.7 /CUMM (4.8-10.8)
--- NOTE | 2017-06-04 12:53 | Cons- Endocrinology ---
General Information and HPI Consulting Request Date of Consult: 06/04/17 Requested By: medical team Reason for Consult: management of uncontrolled DM type 2 Source of Information: patient, old records Exam Limitations: no limitations History of Present Illness: Mr. Chen is a 51-year-old gentleman with past medical history significant for hypertension, hyperlipidemia, diabetes type 2, depression, obstructive sleep apnea(noncompliant with CPAP), chronic back pain, cellulitis with history of MRSA in 2010 and asthma. He was admitted for COPD exacerbation. Currently he is on Solumedrol 40 mg iv twice a day, Levemir 9 units twice a day, Novolog coverage before meals and Novolog coverage at bedtime. His FSGs were 330, 418, 393. Allergies/Medications Allergies: Coded Allergies: No Known Allergies (11/08/16) Home Med List: Albuterol Sulfate 2.5 MG/3 ML (0.083 %) VIAL.NEB 1 Vial INH/ANUPAMA PRN RESPIRATORY (Reported) Albuterol Sulfate (Ventolin Hfa) 90 MCG HFA.AER.AD 2 PUF INH Q4-6 PRN PRN asthma Albuterol Sulfate (Ventolin Hfa) 90 MCG HFA.AER.AD 2 PUF INH Q4-6 PRN PRN WHEEZING Amlodipine Besylate 10 MG TABLET 1 TAB PO DAILY BP (Reported) Aspirin (Ecotrin*) 81 MG TABLET.DR 1 TAB PO DAILY HEART/BLOOD (Reported) Azithromycin 250 MG TABLET 250 MG PO DAILY Shortness of breath Codeine Phosphate/Guaifenesi (Cheratussin AC Syrup) 10 MG-100 MG/5 ML LIQUID 10 ML PO Q4P PRN COUGH Cyclobenzaprine HCl 10 MG TABLET 1 TAB PO TID MUSCLE SPASMS (Reported) Esomeprazole (Nexium) 40 MG CAPSULE.DR 1 CAP PO BID GI (Reported) Fluticasone/Salmeterol (Advair 500-50 Diskus) 500 MCG-50 MCG/DOSE BLST.W.DEV 1 PUF INH BID ASTHMA Glimepiride (Amaryl) 4 MG TABLET 1 TAB PO BID DM Hydrochlorothiazide 25 MG TABLET 1 TAB PO DAILY BP (Reported) Insulin Aspart (Novolog) 100 UNIT/ML VIAL 0 SC AD TIDAC TAKE DIRECTED 30 MINS BEFORE MEALS 3 TIMES A DAY blood sugar-------give <150 0 units 151-200 give 4 units 201-250 give 6 units 251-300 give 8 units 301-350 give 10 units 351-400 give 12 units 400+ give 14 units Insulin Detemir (Levemir) 100 UNIT/ML VIAL 20 UNITS SC DAILY DM Liraglutide (Victoza 3-Micah) 0.6 MG/0.1 ML (18 MG/3 ML) PEN.INJCTR 1.8 MG SC DAILY DM Losartan Potassium (Cozaar) 50 MG TABLET 1 TAB PO DAILY BP (Reported) Metformin HCl (Glucophage) 1,000 MG TABLET 1 TAB PO BID DM Metformin HCl 500 MG TABLET 2 TAB PO BID DM Montelukast Sodium 10 MG TABLET 10 MG PO AT BEDTIME ASTHMA Naproxen 500 MG TABLET 1 TAB PO BID PAIN (Reported) Oxycodone HCl (Roxicodone) 5 MG TABLET 2 TAB PO Q6P PRN PAIN (Reported) Prednisone 10 MG TABLET 10 MG PO DAILY STEROID TAPER On Take 05/12 60 MG (6 tabs) 05/13-05/14 50 MG (5 tabs) 05/15-05/16 40 MG (4 tabs) 05/17-05/18 30 MG (3 tabs) 05/19-05/20 20 MG (2 tab) 05/21-05/22 10 MG (1 tab) Then Stop Rosuvastatin Calcium (Crestor) 20 MG TABLET 1 TAB PO DAILY CHOLESTEROL ( Reported) Sertraline HCl 100 MG TABLET 1 TAB PO DAILY MENTAL HEALTH (Reported) Zolpidem Tartrate 10 MG TABLET 1 TAB PO QPM PRN SLEEP (Reported) Review of Systems Review of Systems Constitutional: Reports: see HPI. Cardiovascular: Denies: chest pain. Respiratory: Reports: short of breath. GI: Denies: abdominal pain. Hematologic/Endocrine: Denies: polyuria, polydipsia. 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 Home Who Do You Live With? self Services at Home: None Primary Language: Icelandic Smoking Status: Former Smoker ETOH Use: occasional use Illicit Drug Use: cocaine Functional Ability ADLs Independent: dressing, eating, toileting, bathing. Ambulation: independent IADLs Independent: shopping, housework, finances, food prep, telephone, transportation , medication admin. Exam & Diagnostic Data Last 24 Hrs of Vital Signs/I&O Vital Signs Date Time Temp Pulse Resp B/P B/P Pulse O2 O2 Flow FiO2 Mean Ox Delivery Rate 06/04 09 130/78 06/04 0820 94 Room Air 06/04 0800 Room Air 06/04 0659 97.5 82 20 142/82 93 Room Air 06/04 0158 94 Room Air 06/04 0156 78 94 06/04 0000 Room Air 06/03 2214 98.6 80 20 150/80 94 06/03 1710 Room Air 06/03 1532 97.4 88 20 140/70 98 Intake & Output 06/04 1600 06/04 0800 06/04 0000 Intake Total 925 450 Output Total Balance 925 450 Intake, IV 525 Intake, Oral 400 450 Physical Exam General Appearance: no apparent distress Respiratory: wheezing (scattered wheezes) Cardiovascular: regular rate/rhythm Gastrointestinal: non-tender, distention Extremities: no edema Labs/Darren Results: Laboratory Tests 06/04 06/03 0825 1200 Hematology CBC w Diff NO MAN DIFF REQ NO MAN DIFF REQ WBC (4.8 - 10.8 /CUMM) 17.7 H 17.6 H RBC (4.70 - 6.10 /CUMM) 3.58 L 3.54 L Hgb (14.0 - 18.0 G/DL) 9.9 L 9.8 L Hct (42 - 52 %) 30.5 L 29.9 L MCV (80.0 - 94.0 FL) 85.2 84.4 MCH (27.0 - 31.0 PG) 27.7 27.8 RDW (11.5 - 14.5 %) 17.0 H 16.3 H Plt Count (130 - 400 /CUMM) 492 H 463 H MPV (7.4 - 10.4 FL) 8.3 8.3 Gran % (42.2 - 75.2 %) 81.4 H 88.1 H Lymphocytes % (20.5 - 51.1 %) 13.5 L 8.3 L Monocytes % (1.7 - 9.3 %) 4.8 3.5 Eosinophils % (0 - 5 %) 0 0 Basophils % (0.0 - 2.0 %) 0.3 0.1 Absolute Granulocytes (1.4 - 6.5 /CUMM) 14.4 H 15.5 H Absolute Lymphocytes (1.2 - 3.4 /CUMM) 2.4 1.5 Absolute Monocytes (0.10 - 0.60 /CUMM) 0.8 H 0.6 Absolute Eosinophils (0.0 - 0.7 /CUMM) 0 0 Absolute Basophils (0.0 - 0.2 /CUMM) 0.1 0 PUBS MCHC (33.0 - 37.0 G/DL) 32.5 L 32.9 L Assessment/Plan Assessment/Plan Mr. Chen is a 51-year-old gentleman with past medical history significant for hypertension, hyperlipidemia, diabetes type 2, depression, obstructive sleep apnea(noncompliant with CPAP), chronic back pain, cellulitis with history of MRSA in 2010 and asthma. He was admitted for COPD exacerbation. Currently he is on Solumedrol 40 mg iv twice a day, Levemir 9 units twice a day, Novolog coverage before meals and Novolog coverage at bedtime. His FSGs were over 300 and his DM hasn't been controlled. DM management: 1. increase Levemir to 15 units twice a day; 2. adjust Novolog coverage before meals and Novolog coverage at bedtime; detail see the inpatient DM orders; 3. monitor FSGs. will follow. Inpatient Diabetes Orders Before Each Meal: Bolus Insulin: Novolog < 80 mg/dl: no coverage 80-100 mg/dl: 6 units 101-120 mg/dl: 6 units 121-150 mg/dl: 6 units 151-200 mg/dl: 8 units 201-250 mg/dl: 10 units 251-300 mg/dl: 12 units 301-350 mg/dl: 14 units 351-400 mg/dl: 16 units > 400 mg/dl: 18 units Bedtime: Bolus Insulin: Novolog < 80 mg/dl: no coverage 80-100 mg/dl: no coverage 101-120 mg/dl: no coverage 121-150 mg/dl: no coverage 151-200 mg/dl: no coverage 201-250 mg/dl: 2 units 251-300 mg/dl: 3 units 301-350 mg/dl: 4 units 351-400 mg/dl: 5 units > 400 mg/dl: 6 units Consult Acknowledgment - Thank you for your consult request.
--- NOTE | 2017-06-04 13:53 | PN- Pulmonary ---
Subjective HPI/Critical Care Issues: Sleeping Objective Current Medications: Current Medications Sig/[place] Start time Last Medication Dose Route Stop Time Status Admin Acetaminophen 650 MG Q6PRN PRN 05/31 2130 AC 06/02 PO 1542 Albuterol Sulfate 3 ML EVERY 4 HRS/AWAKE 06/01 1200 AC 06/04 INH 1247 Albuterol Sulfate 2 PUF Q4-6 PRN PRN 05/31 2345 AC INH Amlodipine Besylate 10 MG DAILY 06/01 1000 AC 06/04 PO 0912 Atorvastatin Calcium 80 MG 1700 06/01 1700 AC 06/03 PO 1729 Azithromycin 500 MG DAILY 06/01 1000 AC 06/04 Dextrose/Water 250 ML IV 0911 Budesonide/ 2 PUF BID 05/31 2200 AC 06/04 Formoterol Fumarate INH 0910 Ceftriaxone Sodium 1,000 MG DAILY 06/03 1000 AC 06/04 IV 0911 Cyclobenzaprine HCl 10 MG TID 05/31 2200 AC 06/04 PO 1205 Ferrous Sulfate 325 MG DAILY 06/02 1000 AC 06/04 PO 0911 Guaifenesin/Codeine 10 ML Q6P PRN 06/02 1030 AC 06/04 Phosphate PO 1205 Hydrochlorothiazide 25 MG DAILY 06/01 1000 AC 06/04 PO 0912 Insulin Aspart 0 TIDAC/HS 06/02 1700 AC 06/04 SC 1204 Insulin Detemir 15 UNITS BID 06/040 AC SC Insulin Detemir 9 UNITS BID 06/03 2200 DC 06/04 SC 0911 Ipratropium [place] 2.5 ML EVERY 4 HRS/AWAKE 06/01 1200 AC 06/04 INH 1247 Losartan Potassium 50 MG DAILY 06/01 1000 AC 06/04 PO 0912 Methylprednisolone 40 MG Q12 06/01 1024 AC 06/04 IV 0911 Montelukast Sodium 10 MG AT BEDTIME 05/31 2200 AC 06/03 PO 2127 Morphine Sulfate 2 MG Q4P PRN 05/31 2130 AC 06/04 IV 1327 Omeprazole 40 MG BID 05/310 AC 06/04 PO 0912 Oxycodone HCl 15 MG Q4-6 PRN 05/31 2200 AC 06/04 PO 1206 Polyethylene Glycol 17 GM DAILY PRN 06/02 0945 AC 06/02 PO 1159 Senna/Docusate Sodium 1 TAB BID PRN 06/02 0845 AC 06/02 PO 2218 Sertraline HCl 100 MG DAILY 06/01 1000 AC 06/04 PO 0912 Sodium Chloride 1,000 ML Q13H 05/31 2300 AC 06/04 IV 0629 Zolpidem Tartrate 10 MG QPM PRN 05/31 2200 AC 06/01 PO 2340 Vital Signs & I&O Last 24 Hrs of Vitals and I&O: Vital Signs Date Time Temp Pulse Resp B/P B/P Pulse O2 O2 Flow FiO2 Mean Ox Delivery Rate 06/04 09 130/78 06/04 0820 94 Room Air 06/04 0800 Room Air 06/04 0659 97.5 82 20 142/82 93 Room Air 06/04 0158 94 Room Air 06/04 0156 78 94 06/04 0000 Room Air 06/03 2214 98.6 80 20 150/80 94 06/03 1710 Room Air 06/03 1532 97.4 88 20 140/70 98 Intake & Output 06/04 1600 06/04 0800 06/04 0000 Intake Total 925 450 Output Total Balance 925 450 Intake, IV 525 Intake, Oral 400 450 Patient 350 lb Weight Laboratory Tests 06/04 06/03 0825 1200 Hematology CBC w Diff NO MAN DIFF REQ NO MAN DIFF REQ WBC (4.8 - 10.8 /CUMM) 17.7 H 17.6 H RBC (4.70 - 6.10 /CUMM) 3.58 L 3.54 L Hgb (14.0 - 18.0 G/DL) 9.9 L 9.8 L Hct (42 - 52 %) 30.5 L 29.9 L MCV (80.0 - 94.0 FL) 85.2 84.4 MCH (27.0 - 31.0 PG) 27.7 27.8 RDW (11.5 - 14.5 %) 17.0 H 16.3 H Plt Count (130 - 400 /CUMM) 492 H 463 H MPV (7.4 - 10.4 FL) 8.3 8.3 Gran % (42.2 - 75.2 %) 81.4 H 88.1 H Lymphocytes % (20.5 - 51.1 %) 13.5 L 8.3 L Monocytes % (1.7 - 9.3 %) 4.8 3.5 Eosinophils % (0 - 5 %) 0 0 Basophils % (0.0 - 2.0 %) 0.3 0.1 Absolute Granulocytes (1.4 - 6.5 /CUMM) 14.4 H 15.5 H Absolute Lymphocytes (1.2 - 3.4 /CUMM) 2.4 1.5 Absolute Monocytes (0.10 - 0.60 /CUMM) 0.8 H 0.6 Absolute Eosinophils (0.0 - 0.7 /CUMM) 0 0 Absolute Basophils (0.0 - 0.2 /CUMM) 0.1 0 PUBS MCHC (33.0 - 37.0 G/DL) 32.5 L 32.9 L Microbiology Date/Time Procedure - Status Source Growth 06/03 1215 Blood Culture - RES BLOOD 06/03 1205 Blood Culture - RES BLOOD 06/03 1005 Surveillance Culture - COMP HEAD/NECK Impression/Plan Impression/Plan Impression/Plan: Physical Exam General Appearance: Alert, Oriented X3, Cooperative, No Acute Distress Skin: No Rashes, No Breakdown, No Significant Lesion HEENT: Atraumatic, PERRLA, EOMI, Mucous Membr. moist/pink Neck: Supple, No JVD Cardiovascular: Normal S1, Normal S2, No Murmurs Lungs: wide spread wheezes and rales Abdomen: Normal Bowel Sounds, Soft, No Tenderness Neurological: Normal Speech Extremities: No Clubbing, No Cyanosis, No Edema Vascular: Normal Pulses, Pulses Symmetrical 51 y/o man with Acute asthma exacerbation JO Diffuse airspace disease left lung, bacterial pna vs cocaine lung Previous allergic asthma Polysub abuse REC cont abx, and if stable can change to po in am Ok to use po prednisone Rpt cxr Nebs Keep hob up Pt needs out pt counselling regarding his polysub abuse
--- NOTE | 2017-06-04 21:50 | RADIOLOGY REPORT ---
EXAMINATION: XR PORTABLE CHEST CLINICAL INFORMATION: Cough COMPARISON: CTA chest 05/31/2017, chest 05/11/2017 TECHNIQUE: Portable frontal view of the chest was obtained. FINDINGS: The heart size remains enlarged. The mediastinal contours appear stable. The lungs appear grossly clear. No convincing consolidation. Mild blunting of the left costophrenic angle is stable. Visualized osseous structures appear grossly intact. IMPRESSION: 1. Stable cardiomegaly. 2. No convincing acute cardiopulmonary process.
[2017-06-04 22:33] VITALS: BP 166/58
[2017-06-05 07:08] VITALS: BP 158/80
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
[2017-06-05 09:35] LABS: ABSOLUTE BASOPHIL COUNT 0 /CUMM (0.0-0.2); ABSOLUTE EOSINOPHIL COUNT 0.1 /CUMM (0.0-0.7); ABSOLUTE GRANULOCYTE CT 12.4 /CUMM (1.4-6.5); ABSOLUTE LYMPH COUNT 4.9 /CUMM (1.2-3.4); ABSOLUTE MONOCYTE COUNT 0.1 /CUMM (0.10-0.60); BASOPHIL % 0.1 % (0.0-2.0); EOSINOPHIL % 0.7 % (0-5); GRANULOCYTE % 70.9 % (42.2-75.2); HEMATOCRIT 31.4 % (42-52); MEAN CORPUSCULAR HGB 27.7 PG (27.0-31.0); MEAN PLATELET VOLUME 8.6 FL (7.4-10.4); PLATELET COUNT 467 /CUMM (130-400); RBC DISTRIBUTION WIDTH 16.2 % (11.5-14.5); RED BLOOD CELL CT 3.74 /CUMM (4.70-6.10)
[2017-06-05 10:16] LABS: WHITE BLOOD CELL COUNT 17.4 /CUMM (4.8-10.8)
--- NOTE | 2017-06-05 12:56 | PN- Diabetes ---
Assessment/Plan Assessment: Mr. Chen is a 51-year-old gentleman with past medical history significant for hypertension, hyperlipidemia, diabetes type 2, depression, obstructive sleep apnea(noncompliant with CPAP), chronic back pain, cellulitis with history of MRSA in 2010 and asthma. He was admitted for COPD exacerbation. He was on Solumedrol 40 mg iv twice a day, Levemir 9 units twice a day, Novolog coverage before meals and Novolog coverage at bedtime. Levemir was increased to 15 units twice a day and Novolog coverage before meals was adjusted. His FSGs were 324, 259 and 234. Steroid was changed to prednisone 40 mg daily today. Plan: continue the current insulin regimen for now; monitor FSGs. will follow. Subjective Subjective: He feels better this morning. Objective Last 24 Hrs of Vital Signs/I&O Vital Signs Date Time Temp Pulse Resp B/P B/P Pulse O2 O2 Flow FiO2 Mean Ox Delivery Rate 06/05 1017 88 140/82 06/05 1016 88 142/80 06/05 0836 97 Room Air Room Air 06/05 0800 Room Air 06/05 0708 97.6 70 20 158/80 95 Room Air 06/05 0259 Room Air 06/05 0000 Room Air 06/04 2233 97.8 78 20 166/58 94 Room Air 06/04 1625 97 Room Air Intake & Output 06/05 1600 06/05 0800 06/05 0000 Intake Total 900 1200 Output Total 500 Balance 400 1200 Intake, IV 600 600 Intake, Oral 300 600 Output, Urine 500 Findings Pertinent Lab/Darren Results: Laboratory Tests 06/05 0825 Chemistry Sodium (137 - 145 mmol/L) 138 Potassium (3.5 - 5.1 mmol/L) 4.6 Chloride (98 - 107 mmol/L) 99 Carbon Dioxide (22 - 30 mmol/L) 25 Anion Gap (5 - 16) 13 BUN (9 - 20 mg/dL) 28 H Creatinine (0.7 - 1.2 mg/dL) 1.0 Estimated GFR (>60 ml/min) > 60 BUN/Creatinine Ratio (7 - 25 %) 28.0 H Hematology CBC w Diff NO MAN DIFF REQ WBC (4.8 - 10.8 /CUMM) 17.4 H RBC (4.70 - 6.10 /CUMM) 3.74 L Hgb (14.0 - 18.0 G/DL) 10.4 L Hct (42 - 52 %) 31.4 L MCV (80.0 - 94.0 FL) 84.0 MCH (27.0 - 31.0 PG) 27.7 RDW (11.5 - 14.5 %) 16.2 H Plt Count (130 - 400 /CUMM) 467 H MPV (7.4 - 10.4 FL) 8.6 Gran % (42.2 - 75.2 %) 70.9 Lymphocytes % (20.5 - 51.1 %) 27.8 Monocytes % (1.7 - 9.3 %) 0.5 L Eosinophils % (0 - 5 %) 0.7 Basophils % (0.0 - 2.0 %) 0.1 Absolute Granulocytes (1.4 - 6.5 /CUMM) 12.4 H Absolute Lymphocytes (1.2 - 3.4 /CUMM) 4.9 H Absolute Monocytes (0.10 - 0.60 /CUMM) 0.1 Absolute Eosinophils (0.0 - 0.7 /CUMM) 0.1 Absolute Basophils (0.0 - 0.2 /CUMM) 0 PUBS MCHC (33.0 - 37.0 G/DL) 33.0
--- NOTE | 2017-06-05 13:18 | PN- Pulmonary ---
Subjective HPI/Critical Care Issues: Sleeping and comfortable Objective Current Medications: Current Medications Sig/[place] Start time Last Medication Dose Route Stop Time Status Admin Acetaminophen 650 MG Q6PRN PRN 05/31 2130 AC 06/02 PO 1542 Albuterol Sulfate 3 ML EVERY 4 HRS/AWAKE 06/01 1200 AC 06/05 INH 1159 Albuterol Sulfate 2 PUF Q4-6 PRN PRN 05/31 2345 AC INH Amlodipine Besylate 10 MG DAILY 06/01 1000 AC 06/05 PO 1016 Atorvastatin Calcium 80 MG 1700 06/01 1700 AC 06/04 PO 1612 Azithromycin 500 MG DAILY 06/01 1000 AC 06/05 Dextrose/Water 250 ML IV 1016 Budesonide/ 2 PUF BID 05/31 2200 AC 06/05 Formoterol Fumarate INH 1017 Ceftriaxone Sodium 1,000 MG DAILY 06/03 1000 AC 06/05 IV 1015 Cyclobenzaprine HCl 10 MG TID 05/310 AC 06/05 PO 1016 Ferrous Sulfate 325 MG DAILY 06/02 1000 AC 06/05 PO 1016 Guaifenesin/Codeine 10 ML Q6P PRN 06/02 1030 AC 06/05 Phosphate PO 1158 Hydrochlorothiazide 25 MG DAILY 06/01 1000 AC 06/05 PO 1016 Insulin Aspart 0 TIDAC/HS 06/02 1700 AC 06/05 SC 1158 Insulin Detemir 15 UNITS BID 06/04 2200 AC 06/05 SC 1016 Ipratropium [place] 2.5 ML EVERY 4 HRS/AWAKE 06/01 1200 AC 06/05 INH 1159 Losartan Potassium 50 MG DAILY 06/01 1000 AC 06/05 PO 1017 Methylprednisolone 40 MG Q12 06/01 1024 DC 06/04 IV 0911 Montelukast Sodium 10 MG AT BEDTIME 05/31 2199 AC 06/04 PO 2122 Morphine Sulfate 2 MG Q4P PRN 05/31 2130 AC 06/05 IV 1157 Omeprazole 40 MG BID 05/31 2199 AC 06/05 PO 1016 Oxycodone HCl 15 MG Q4-6 PRN 05/310 AC 06/05 PO 1301 Polyethylene Glycol 17 GM DAILY PRN 06/02 0945 AC 06/02 PO 1159 Prednisone 40 MG DAILY 06/05 1000 AC 06/05 PO 1016 Senna/Docusate Sodium 1 TAB BID PRN 06/02 0845 AC 06/02 PO 2218 Sertraline HCl 100 MG DAILY 06/01 1000 AC 06/05 PO 1016 Sodium Chloride 1,000 ML Q13H 05/31 2300 AC 06/04 IV 1725 Zolpidem Tartrate 10 MG QPM PRN 05/31 2200 AC 06/01 PO 2340 Vital Signs & I&O Last 24 Hrs of Vitals and I&O: Vital Signs Date Time Temp Pulse Resp B/P B/P Pulse O2 O2 Flow FiO2 Mean Ox Delivery Rate 06/05 1017 88 140/82 06/05 1016 88 142/80 06/05 0836 97 Room Air Room Air 06/05 0800 Room Air 06/05 0708 97.6 70 20 158/80 95 Room Air 06/05 0259 Room Air 06/05 0000 Room Air 06/04 2233 97.8 78 20 166/58 94 Room Air 06/04 1625 97 Room Air Intake & Output 06/05 1600 06/05 0800 06/05 0000 Intake Total 900 1200 Output Total 500 Balance 400 1200 Intake, IV 600 600 Intake, Oral 300 600 Output, Urine 500 Impression/Plan Impression/Plan Impression/Plan: Physical Exam General Appearance: Alert, Oriented X3, Cooperative, No Acute Distress Skin: No Rashes, No Breakdown, No Significant Lesion HEENT: Atraumatic, PERRLA, EOMI, Mucous Membr. moist/pink Neck: Supple, No JVD Cardiovascular: Normal S1, Normal S2, No Murmurs Lungs: wide spread wheezes and rales Abdomen: Normal Bowel Sounds, Soft, No Tenderness Neurological: Normal Speech Extremities: No Clubbing, No Cyanosis, No Edema Vascular: Normal Pulses, Pulses Symmetrical 51 y/o man with Acute asthma exacerbation JO Diffuse airspace disease left lung, bacterial pna vs cocaine lung Previous allergic asthma Polysub abuse REC Po abx for a total duration of abx of seven days, po ceftin Po prednisone taper Rpt cxr showed resolution of infiltrate consistant with prob cocaine lung Nebs Keep hob up Pt needs out pt counselling regarding his polysub abuse
[2017-06-05 14:29] VITALS: BP 162/80
[2017-06-05 22:38] VITALS: BP 150/90
[2017-06-06 06:59] VITALS: BP 158/88
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
[2017-06-06 09:19] LABS: ABSOLUTE BASOPHIL COUNT 0.1 /CUMM (0.0-0.2); ABSOLUTE EOSINOPHIL COUNT 0.2 /CUMM (0.0-0.7); ABSOLUTE GRANULOCYTE CT 9.5 /CUMM (1.4-6.5); ABSOLUTE LYMPH COUNT 4.8 /CUMM (1.2-3.4); ABSOLUTE MONOCYTE COUNT 0.8 /CUMM (0.10-0.60); BASOPHIL % 0.4 % (0.0-2.0); EOSINOPHIL % 1.6 % (0-5); GRANULOCYTE % 61.7 % (42.2-75.2); HEMATOCRIT 34.1 % (42-52); MEAN CORPUSCULAR HGB 27.7 PG (27.0-31.0); MEAN CORPUSCULAR HGB CONC 32.5 G/DL (33.0-37.0); MEAN CORPUSCULAR VOLUME 85.4 FL (80.0-94.0); MEAN PLATELET VOLUME 8.5 FL (7.4-10.4); PLATELET COUNT 579 /CUMM (130-400); RBC DISTRIBUTION WIDTH 16.2 % (11.5-14.5); RED BLOOD CELL CT 3.99 /CUMM (4.70-6.10); WHITE BLOOD CELL COUNT 15.4 /CUMM (4.8-10.8)
--- NOTE | 2017-06-06 10:56 | PN- Diabetes ---
Assessment/Plan Assessment: Mr. Chen is a 51-year-old gentleman with past medical history significant for hypertension, hyperlipidemia, diabetes type 2, depression, obstructive sleep apnea(noncompliant with CPAP), chronic back pain, cellulitis with history of MRSA in 2010 and asthma. He was admitted for COPD exacerbation. He was on Solumedrol 40 mg iv twice a day, Levemir 9 units twice a day, Novolog coverage before meals and Novolog coverage at bedtime. Levemir was increased to 15 units twice a day and Novolog coverage before meals was adjusted. Steroid was changed to prednisone 40 mg daily on 06/05/2017. His FSGs were 259, 234, 308, 389 and 222. Plan: 1. continue Levemir 15 units twice a day; 2. adjust Novolog coverage before meals; detail see the inpatient DM order; 3. continue the current Novolog coverage at bedtime; 4. monitor FSGs. will follow. Inpatient Diabetes Orders Before Each Meal: Bolus Insulin: Novolog < 80 mg/dl: no coverage 80-100 mg/dl: 8 units 101-120 mg/dl: 8 units 121-150 mg/dl: 8 units 151-200 mg/dl: 10 units 201-250 mg/dl: 12 units 251-300 mg/dl: 14 units 301-350 mg/dl: 16 units 351-400 mg/dl: 18 units > 400 mg/dl: 20 units Subjective Subjective: His glucose levels have not been controlled yet. Objective Last 24 Hrs of Vital Signs/I&O Vital Signs Date Time Temp Pulse Resp B/P B/P Pulse O2 O2 Flow FiO2 Mean Ox Delivery Rate 06/06 0850 95 Room Air 06/06 08 158/88 06/06 0827 158/88 06/06 0659 97.6 74 18 158/88 97 Room Air 06/05 2238 97.5 67 20 150/90 95 Room Air 06/05 1640 97 Room Air 06/05 1600 Room Air 06/05 1429 97.1 77 20 162/80 94 Room Air Intake & Output 06/06 1600 06/06 0800 06/06 0000 Intake Total 630 250 Output Total Balance 630 250 Intake, IV 30 10 Intake, Oral 600 240 Findings Pertinent Lab/Darren Results: Laboratory Tests 06/06 835 Chemistry Sodium (137 - 145 mmol/L) 138 Potassium (3.5 - 5.1 mmol/L) 4.8 Chloride (98 - 107 mmol/L) 96 L Carbon Dioxide (22 - 30 mmol/L) 28 Anion Gap (5 - 16) 14 BUN (9 - 20 mg/dL) 26 H Creatinine (0.7 - 1.2 mg/dL) 0.8 Estimated GFR (>60 ml/min) > 60 BUN/Creatinine Ratio (7 - 25 %) 32.5 H Hematology CBC w Diff Pending WBC Pending RBC Pending Hgb Pending Hct Pending MCV Pending MCH Pending RDW Pending Plt Count Pending MPV Pending PUBS MCHC Pending
--- NOTE | 2017-06-06 13:48 | PN- Pulmonary ---
Subjective HPI/Critical Care Issues: Patient seen and examined. He has been in bed without ambulating at this time. He continues to have a significant wheeze and thick sputum. Objective Current Medications: Current Medications Sig/Elodia Start time Last Medication Dose Route Stop Time Status Admin Acetaminophen 650 MG Q6PRN PRN 05/31 2130 AC 06/06 PO 0827 Albuterol Sulfate 3 ML EVERY 4 HRS/AWAKE 06/01 1200 AC 06/06 INH 1230 Albuterol Sulfate 2 PUF Q4-6 PRN PRN 05/31 2345 AC INH Amlodipine Besylate 10 MG DAILY 06/01 1000 AC 06/06 PO 0827 Atorvastatin Calcium 80 MG 1700 06/01 1700 AC 06/05 PO 1612 Azithromycin 500 MG DAILY 06/01 1000 DC 06/05 Dextrose/Water 250 ML IV 1016 Budesonide/ 2 PUF BID 05/31 220 AC 06/06 Formoterol Fumarate INH 0828 Ceftriaxone Sodium 1,000 MG DAILY 06/03 1000 DC 06/05 IV 1015 Cefuroxime Sodium 250 MG Q12 06/06 1000 AC 06/06 PO 0827 Cyclobenzaprine HCl 10 MG TID 05/31 220 AC 06/06 PO 0827 Ferrous Sulfate 325 MG DAILY 06/02 1000 AC 06/06 PO 0826 Guaifenesin/Codeine 10 ML Q6P PRN 06/02 1030 AC 06/06 Phosphate PO 1127 Hydrochlorothiazide 25 MG DAILY 06/01 1000 AC 06/06 PO 0827 Hydromorphone HCl 2 MG Q6P PRN 06/06 1145 AC PO Insulin Aspart 0 TIDAC/HS 06/02 1700 AC 06/06 SC 1222 Insulin Detemir 15 UNITS BID 06/04 2200 AC 06/06 SC 0831 Ipratropium [place] 2.5 ML EVERY 4 HRS/AWAKE 06/01 1200 AC 06/06 INH 1230 Losartan Potassium 50 MG DAILY 06/01 1000 AC 06/06 PO 0827 Montelukast Sodium 10 MG AT BEDTIME 05/31 2199 AC 06/05 PO 2129 Morphine Sulfate 2 MG Q4P PRN 05/31 2130 DC 06/06 IV 0720 Omeprazole 40 MG BID 05/31 2200 AC 06/06 PO 0827 Oxycodone HCl 15 MG Q4-6 PRN 05/310 AC 06/06 PO 0942 Polyethylene Glycol 17 GM DAILY PRN 06/02 0945 AC 06/02 PO 1159 Prednisone 40 MG DAILY 06/05 1000 AC 06/06 PO 0827 Senna/Docusate Sodium 1 TAB BID PRN 06/02 0945 AC 06/02 PO 2218 Sertraline HCl 100 MG DAILY 06/01 1000 AC 06/06 PO 1127 Sodium Chloride 1,000 ML Q13H 05/31 2300 DC 06/04 IV 1725 Zolpidem Tartrate 10 MG QPM PRN 05/31 2200 AC 06/05 PO 2330 Vital Signs & I&O Last 24 Hrs of Vitals and I&O: Vital Signs Date Time Temp Pulse Resp B/P B/P Pulse O2 O2 Flow FiO2 Mean Ox Delivery Rate 06/06 0850 95 Room Air 06/06 0827 158/88 06/06 0827 158/88 06/06 0659 97.6 74 18 158/88 97 Room Air 06/05 2238 97.5 67 20 150/90 95 Room Air 06/05 1640 97 Room Air 06/05 1600 Room Air 06/05 1429 97.1 77 20 162/80 94 Room Air Intake & Output 06/06 1600 06/06 0800 06/06 0000 Intake Total 630 250 Output Total Balance 630 250 Intake, IV 30 10 Intake, Oral 600 240 Exam Other Physical Findings: Generally - Awake, alert and comfortable without distress Head and neck - normocephalic, atraumatic, EOMI grossly intact Cardiovascular - S1, S2, no murmurs, rubs or gallops Lungs - bilateral wheezing Abdomen - Bowel sounds positive, soft, non-tender Extremities - without edema Results Last 24 Hrs of Lab Results: Laboratory Tests 06/06/17 0836: Anion Gap 14, Estimated GFR > 60, BUN/Creatinine Ratio 32.5 H, CBC w Diff NO MAN DIFF REQ, RBC 3.99 L, MCV 85.4, MCH 27.7, RDW 16.2 H, MPV 8.5, Gran % 61.7 , Lymphocytes % 31.1, Monocytes % 5.2, Eosinophils % 1.6, Basophils % 0.4, Absolute Granulocytes 9.5 H, Absolute Lymphocytes 4.8 H, Absolute Monocytes 0.8 H, Absolute Eosinophils 0.2, Absolute Basophils 0.1, PUBS MCHC 32.5 L Impression/Plan Impression/Plan Impression/Plan: Impression 51 year old man, asthma, JO, elevated IgE previously. * acute exacerbation of asthma likely secondary to CAP Plan -prednisone taper -candidate for outpatient xolair (Will be arranged) -cocaine cessation (counseled) -continue codeine cough syrup -trc/nebs -cont abx -mucomyst nebulized bid DC planning within 24 hrs DVT prophylaxis at all times
[2017-06-06 14:40] VITALS: BP 140/80
[2017-06-06 21:58] VITALS: BP 162/68
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
[2017-06-07 07:19] VITALS: BP 160/96
[2017-06-07] MEDS ORDERED: MIRALAX119 GM PO ×2 (07:26→11:45)
[2017-06-07] MEDS ORDERED: SENNA PLUS TAB1 EACH PO ×2 (07:26→11:45)
[2017-06-07] MEDS ORDERED: FERROUS SULFAT325 M2 PO ×2 (07:26→11:45)
--- NOTE | 2017-06-07 07:29 | Patient Discharge Instructions ---
Discharge Instructions General Discharge Information You were seen/treated for: PNEUMONIA, PLEURIST, HEMOPTYSIS Special Instructions: 1-PLEASE FLLOW UP WITH PCP IN 1 WEEK OF DISCHARGE 2- PLEASE FOLLOW UP WITH TALEND ETL DEVELOPER IN 1 WEEK OF DISCHARGE 3- PLEASE FOLLOW UP WITH PRINT [employer]OP CHIEF CLERK IN 1 WEEK OF DISCHARGE Diet Continue normal diet: Yes Activity Full Activity/No Limits: Yes Acute Coronary Syndrome Inclusion Criteria At DC or during hospital stay patient has or had the following: ACS DIAGNOSIS No Discharge Core Measures Meds if any: Prescribed or Continued at Discharge Meds if any: NOT Prescribed or Continued at Discharge Congestive Heart Failure Inclusion Criteria At DC or during hospital stay patient has or had the following: CHF DIAGNOSIS No Discharge Core Measures Meds if any: Prescribed or Continued at Discharge Meds if any: NOT Prescribed or Continued at Discharge Cerebrovascular accident Inclusion Criteria At DC or during hospital stay patient has or had the following: CVA/TIA Diagnosis No Discharge Core Measures Meds if any: Prescribed or Continued at Discharge Meds if any: NOT Prescribed or Continued at Discharge Venous thromboembolism Inclusion Criteria VTE Diagnosis No VTE Type NONE VTE Confirmed by (Test) NONE Discharge Core Measures - Per Current guidelines, there needs to be overlap - treatment for the first 5 days of Warfarin therapy. - If discharged on Warfarin prior to 5 days of - overlap therapy, the patient will need to be - assessed for post discharge needs including - *Post discharge parental anticoagulation - *Warfarin and/or parental anticoagulation education - *Follow up date to check INR post discharge At least 5 days overlap therapy as Inpatient No Meds if any: Prescribed or Continued at Discharge Note: Overlap Therapy is Warfarin and Anticoagulant Meds if any: NOT Prescribed or Continued at Discharge
[2017-06-07 08:31] LABS: ABSOLUTE BASOPHIL COUNT 0.1 /CUMM (0.0-0.2); ABSOLUTE EOSINOPHIL COUNT 0.4 /CUMM (0.0-0.7); ABSOLUTE GRANULOCYTE CT 8.8 /CUMM (1.4-6.5); ABSOLUTE LYMPH COUNT 5.6 /CUMM (1.2-3.4); ABSOLUTE MONOCYTE COUNT 0.9 /CUMM (0.10-0.60); BASOPHIL % 0.4 % (0.0-2.0); EOSINOPHIL % 2.3 % (0-5); GRANULOCYTE % 56.1 % (42.2-75.2); HEMATOCRIT 34.6 % (42-52); MEAN CORPUSCULAR HGB CONC 32.4 G/DL (33.0-37.0); MEAN CORPUSCULAR VOLUME 86.3 FL (80.0-94.0); MEAN PLATELET VOLUME 7.9 FL (7.4-10.4); PLATELET COUNT 576 /CUMM (130-400); RBC DISTRIBUTION WIDTH 16.9 % (11.5-14.5); WHITE BLOOD CELL COUNT 15.6 /CUMM (4.8-10.8)
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
[2017-06-07 10:07] VITALS: BP 140/84
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
[2017-06-07] MEDS ORDERED: NOVOLOG100 UNIT/2 SC (11:45)
[2017-06-07] MEDS ORDERED: LEVEMIR100 UNIT/1 SC (11:45)
[2017-06-07] MEDS ORDERED: PREDNISONE10 M2 PO (11:45)
--- NOTE | 2017-06-07 12:32 | PN- Diabetes ---
Assessment/Plan Assessment: Mr. Chen is a 51-year-old gentleman with past medical history significant for hypertension, hyperlipidemia, diabetes type 2, depression, obstructive sleep apnea(noncompliant with CPAP), chronic back pain, cellulitis with history of MRSA in 2010 and asthma. He was admitted for COPD exacerbation. He was on Solumedrol 40 mg iv twice a day, Levemir 9 units twice a day, Novolog coverage before meals and Novolog coverage at bedtime. Levemir was increased to 15 units twice a day and Novolog coverage before meals was adjusted. Steroid was changed to prednisone 40 mg daily on 06/05/2017. His FSGs were 140, 340, 217 and 201. As per team, patient will be discharged today on a prednisone taper. Plan: Discharge plan for DM: 1. Levemir 20 units daily; 2. metformin ER 500 mg x 2 tablets twice a day; 3. victoza 1.8 mg daily; 4. Glimepiride 4 mg twice a day; 5. Novolog coverage before meals as a back-up FSG < 200, no coverage; 200-250, 4 units 251-300, 6 units 301-350, 8 units 351-400, 10 units > 400, call office 6. f/u in office next week. Subjective Subjective: Patient is going home today. Objective Last 24 Hrs of Vital Signs/I&O Vital Signs Date Time Temp Pulse Resp B/P B/P Pulse O2 O2 Flow FiO2 Mean Ox Delivery Rate 06/07 1007 86 140/84 06/07 1007 140/84 06/07 0835 95 Room Air 06/07 0800 Room Air 06/07 0719 97.4 73 18 160/96 95 Room Air 06/07 0138 98 Room Air 06/07 0138 81 98 06/07 0000 Nasal 2.0L Cannula 06/06 2158 98.0 84 18 162/68 96 Room Air 06/06 1911 95 Room Air 06/06 1618 95 Room Air 06/06 1600 95 Room Air Room Air 06/06 1440 97.2 93 20 140/80 96 Intake & Output 06/07 1600 06/07 0800 06/07 0000 Intake Total 480 480 Output Total Balance 480 480 Intake, Oral 480 480 Findings Pertinent Lab/Darren Results: Laboratory Tests 06/07 08 Chemistry Sodium (137 - 145 mmol/L) 138 Potassium (3.5 - 5.1 mmol/L) 4.3 Chloride (98 - 107 mmol/L) 96 L Carbon Dioxide (22 - 30 mmol/L) 29 Anion Gap (5 - 16) 13 BUN (9 - 20 mg/dL) 26 H Creatinine (0.7 - 1.2 mg/dL) 0.9 Estimated GFR (>60 ml/min) > 60 BUN/Creatinine Ratio (7 - 25 %) 28.9 H Hematology CBC w Diff NO MAN DIFF REQ WBC (4.8 - 10.8 /CUMM) 15.6 H RBC (4.70 - 6.10 /CUMM) 4.00 L Hgb (14.0 - 18.0 G/DL) 11.2 L Hct (42 - 52 %) 34.6 L MCV (80.0 - 94.0 FL) 86.3 MCH (27.0 - 31.0 PG) 28.0 RDW (11.5 - 14.5 %) 16.9 H Plt Count (130 - 400 /CUMM) 576 H MPV (7.4 - 10.4 FL) 7.9 Gran % (42.2 - 75.2 %) 56.1 Lymphocytes % (20.5 - 51.1 %) 35.7 Monocytes % (1.7 - 9.3 %) 5.5 Eosinophils % (0 - 5 %) 2.3 Basophils % (0.0 - 2.0 %) 0.4 Absolute Granulocytes (1.4 - 6.5 /CUMM) 8.8 H Absolute Lymphocytes (1.2 - 3.4 /CUMM) 5.6 H Absolute Monocytes (0.10 - 0.60 /CUMM) 0.9 H Absolute Eosinophils (0.0 - 0.7 /CUMM) 0.4 Absolute Basophils (0.0 - 0.2 /CUMM) 0.1 PUBS MCHC (33.0 - 37.0 G/DL) 32.4 L
== END 2017-06-07 14:54 | DRG 139 ==
LOC: ERH 16:29 → ERHI 20:36 → 2NA 20:36 → ENRESERV 22:10 → ENTRNSPT 22:28 → CMPTRNSPT 22:33 → 2NA 22:34 → ENPENDDIS 06-07 13:03 → ENTRNSPT 06-07 14:39 → CMPTRNSPT 06-07 14:49 → 2NA 06-07 14:54
PROVIDERS: Student in an Organized Health Care Education/Training Program
DX: J18.9 Pneumonia, unspecified organism (principal); J45.901 Unspecified asthma with (acute) exacerbation; I10 Essential (primary) hypertension; E78.5 Hyperlipidemia, unspecified; G47.33 Obstructive sleep apnea (adult) (pediatric); E11.65 Type 2 diabetes mellitus with hyperglycemia; F32.9 Major depressive disorder, single episode, unspecified; M54.9 Dorsalgia, unspecified; F14.10 Cocaine abuse, uncomplicated; E66.01 Morbid (severe) obesity due to excess calories; Z68.41 Body mass index [BMI] 40.0-44.9, adult; R06.03 Acute respiratory distress; Z91.19 Patient's noncompliance with other medical treatment and regimen; F19.10 Other psychoactive substance abuse, uncomplicated; K21.9 Gastro-esophageal reflux disease without esophagitis; G89.29 Other chronic pain; F11.229 Opioid dependence with intoxication, unspecified; D64.9 Anemia, unspecified; R09.1 Pleurisy; Z87.891 Personal history of nicotine dependence; Z86.14 Personal history of Methicillin resistant Staphylococcus aureus infection; Z79.4 Long term (current) use of insulin; Z90.2 Acquired absence of lung [part of]
CPT/HCPCS: 2NAP; 36415; 71045; 80307; 82436; 87040; 87070; 87071; 87147; 87449; 87450; 87804; 87804-59; 93005; 93010; 96374; 96375; J0456; J0696; J1815; J2920; J3370; J3490; J7040; J7060; J7608

== ENCOUNTER 2017-09-04 17:16 | Inpatient (IN) | payer OTHER ==
[~2017-09-04] VITALS: Ht 193 cm; Wt 170.6 kg
[~2017-09-04 17:16] MED LIST changes: +CIPRO500 M1 PO; +FERROUS SULFAT325 M2 PO; +MIRALAX119 GM PO; +SENNA PLUS TAB1 EACH PO
--- NOTE | 2017-09-04 19:11 | ED DYSPNEA/ASTHMA COMPLAINT ---
History of Present Illness General Chief Complaint: Wheezing/Asthma Stated Complaint: "ASTHMA FOR THE LAST COUPLE DAYS" Source: patient, family Exam Limitations: no limitations Vital Signs & Intake/Output Vital Signs & Intake/Output Vital Signs Date Time Temp Pulse Resp B/P B/P Pulse O2 O2 Flow FiO2 Mean Ox Delivery Rate 09/04 2315 Room Air 09/047 99.5 93 20 142/84 96 Room Air 09/044 99.5 89 20 135/93 98 Room Air 09/04 1925 98 09/04 1729 99.0 87 20 160/85 98 Room Air Allergies Coded Allergies: cat dander (Mild, COUGHING 09/04/17) Reconcile Medications Albuterol Sulfate 2.5 MG/3 ML (0.083 %) VIAL.NEB 1 Vial INH/ANUPAMA PRN RESPIRATORY (Reported) Albuterol Sulfate (Ventolin Hfa) 90 MCG HFA.AER.AD 2 PUF INH Q4-6 PRN PRN asthma Amlodipine Besylate 10 MG TABLET 1 TAB PO DAILY BP (Reported) Aspirin (Ecotrin*) 81 MG TABLET.DR 1 TAB PO DAILY HEART/BLOOD (Reported) Codeine Phosphate/Guaifenesi (Cheratussin AC Syrup) 10 MG-100 MG/5 ML LIQUID 10 ML PO Q4P PRN COUGH Cyclobenzaprine HCl 10 MG TABLET 1 TAB PO TID MUSCLE SPASMS (Reported) Esomeprazole (Nexium) 40 MG CAPSULE.DR 1 CAP PO BID GI (Reported) Ferrous Sulfate 325 MG (65 MG IRON) TABLET.DR 325 MG PO DAILY ANEMIA . Fluticasone/Salmeterol (Advair 500-50 Diskus) 500 MCG-50 MCG/DOSE BLST.W.DEV 1 PUF INH BID ASTHMA Glimepiride (Amaryl) 4 MG TABLET 0.5 TAB PO DAILY DM Hydrochlorothiazide 25 MG TABLET 1 TAB PO DAILY BP (Reported) Liraglutide (Victoza 3-Micah) 0.6 MG/0.1 ML (18 MG/3 ML) PEN.INJCTR 1.8 MG SC DAILY DM Losartan Potassium (Cozaar) 50 MG TABLET 1 TAB PO DAILY BP (Reported) Metformin HCl (Glucophage) 1,000 MG TABLET 1 TAB PO BID DM Montelukast Sodium 10 MG TABLET 10 MG PO AT BEDTIME ASTHMA Oxycodone HCl (Roxicodone) 5 MG TABLET 2 TAB PO Q6P PRN PAIN (Reported) Polyethylene Glycol 3350 (Miralax) 17 GRAM/DOSE POWDER 17 GM PO DAILY PRN CONSTIPATION . Rosuvastatin Calcium (Crestor) 20 MG TABLET 1 TAB PO DAILY CHOLESTEROL ( Reported) Sennosides/Docusate Sodium (Senna Plus Tablet) 8.6 MG-50 MG TABLET 1 TAB PO BID PRN CONSTIPATION . Sertraline HCl 100 MG TABLET 1 TAB PO DAILY MENTAL HEALTH (Reported) Zolpidem Tartrate 10 MG TABLET 1 TAB PO QPM PRN SLEEP (Reported) Triage Note: PT STATES HE HAS BEEN HAVING BAD ASTHMA FOR A FEW DAYS. PT REPORTS COUGHING SO BAD HE CAN'T CATCH HIS BREATH. PT STATES NOTHING COMES UP WHEN HE COUGHS. PT USING HIS NEBULIZER AND INHALERS WITH NO RELIEF FROM HIS COUGH. PT O2 SAT 98% ON RA IN TRIAGE. PT IS SOB. Triage Nurses Notes Reviewed? 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 URI Sx for the last 3-4 days with cough, congestion, rhinorrhea. SOB for the last 2-3 days, some audible wheezing, worse with ambulation, partially improved by albuterol nebulizer which patient has been using every 3-4 hrs. Some chest pain "in diaphragm" with coughing, non-pleuritic, non-exertional. Denies fevers, chills, palpitations, LE swelling/pain, abdominal Sx, urinary Sx, headache, neck pain or focal neurologic Sx. (Lorraine AHUJA,Enzo) Past History Travel History Traveled to [place] past 21 day No Medical History Any Pertinent Medical History? 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 Yes (Enzo Peters MD) Review of Systems Review of Systems Constitutional: Reports: see HPI. EENTM: Reports: no symptoms. Respiratory: Reports: see HPI. Cardiovascular: Reports: see HPI. GI: Reports: no symptoms. Genitourinary: Reports: no symptoms. Musculoskeletal: Reports: no symptoms. Skin: Reports: no symptoms. Neurological/Psychological: Reports: no symptoms. Hematologic/Endocrine: Reports: no symptoms. Immunologic/Allergic: Reports: no symptoms. All Other Systems: Reviewed and Negative (Enzo Peters MD) Physical Exam Physical Exam General Appearance: well developed/nourished, no apparent distress, alert, comfortable Eyes: Bilateral: PERRL, EOMI. Ears, Nose, Throat: moist mucus membranes Neck: normal inspection, full range of motion Respiratory: rhonchi, wheezing Cardiovascular: regular rate/rhythm, normal peripheral pulses Gastrointestinal: soft, non-tender Extremities: normal capillary refill, normal range of motion Comments: Pulmonary: Mild tachypnea, Diffuse rhonchi with harsh inspiratory/expiratory wheezes Core Measures ACS in differential dx? Yes CVA/TIA Diagnosis No Sepsis Present: No Sepsis Focused Exam Completed? No (Enzo Peters MD) Progress Differential Diagnosis: asthma, AMI, altitude sickness, bronchitis, costochondritis, CHF, COPD, musculoskeletal pain, pericarditis, pulmonary embolism, pneumonia, pneumothorax, rib fracture, unstable angina Plan of Care: Orders Procedure Date/time Status Consistent Carbohydrate 3 09/05 B Active CBC WITHOUT DIFFERENTIAL 09/05 0600 Active BASIC ELECTROLYTES PLUS BUN&CR 09/05 0600 Active Weight 09/04 2314 Active Vital Signs 09/04 2313 Active Teach/Educate 09/04 2313 Active Pain Treatment and Response 09/04 2313 Active Nutritional Intake, Monitor 09/04 2313 Active Isolation 09/04 2313 Active Intake & Output 09/04 2313 Active Patient Care Conference 09/04 2313 Active Activity/Ambulation 09/04 2313 Active Pathway - chart 09/04 2237 Active Code Status 09/04 2237 Active Misc Message 09/04 2208 Active ED Holding Orders 09/04 2208 Active Vital Signs 09/04 2208 Active Code Status 09/04 2208 Complete Patient Data 09/04 2137 Active Admit to inpatient 09/05 2119 Active RAPID VIRAL INFLUENZA A 09/04 185 Complete TROPONIN LEVEL 09/04 185 Complete CBC WITHOUT DIFFERENTIAL 09/04 185 Complete BASIC METABOLIC PANEL 09/04 185 Complete EKG 09/04 185 Active Intake & Output 09/04 1816 Active TRC EVALUATION (GEN) 09/04 UNK Active CONTIN. POSITIVE AIRWAY PRESS 09/04 UNK Active House Staff 09/04 UNK Active VTE Mechanical Prophylaxis 09/04 UNK Active Current Medications Sig/Elodia Start time Last Medication Dose Stop Time Status Admin Montelukast Sodium 10 MG AT BEDTIME 09/05 2100 UNVr (Singulair) Atorvastatin Calcium 80 MG 1700 09/05 1700 UNVr (Lipitor) Amlodipine Besylate 10 MG DAILY 09/05 0900 UNVr (Norvasc) Cyclobenzaprine HCl 10 MG TID 09/05 0900 UNVr (Flexeril 10MG Tab) Enoxaparin Sodium 40 MG DAILY 09/05 0900 UNVr (Lovenox) Hydrochlorothiazide 25 MG DAILY 09/05 0900 UNVr (Hydrodiuril) Lidocaine 1 PAT DAILY 09/05 0900 UNVr (Lidoderm) Losartan Potassium 50 MG DAILY 09/05 0900 UNVr (Cozaar) Sertraline HCl 100 MG DAILY 09/05 0900 UNVr (Zoloft) Insulin Aspart 0 TIDAC 09/05 0800 UNVr (NovoLOG) Acetaminophen 650 MG Q6P PRN 09/04 2244 UNVr (Tylenol) Guaifenesin/ 10 ML Q6P PRN 09/04 2244 UNVr Dextromethorphan (Robitussin Dm) Methylprednisolone 40 MG Q8 09/04 2244 UNVr (Solumedrol) Zolpidem Tartrate 10 MG QPM PRN 09/04 2244 UNVr (Ambien) Benzonatate 100 MG TID 09/04 224 UNVr (Tessalon Capsule) Budesonide/ 2 PUF BID 09/04 224 UNVr Formoterol Fumarate (Symbicort) Omeprazole 40 MG BID 09/04 2238 UNVr (Prilosec) Moxifloxacin HCl 400 MG ONCE ONE 09/04 2029 CAN (Avelox) 09/05 2039 Laboratory Tests 09/04/171929: Anion Gap 11, Estimated GFR > 60, BUN/Creatinine Ratio 18.3, Glucose 181 H, Calcium 9.3, Troponin I < 0.01 09/04/171919: CBC w Diff NO MAN DIFF REQ, RBC 4.30 L, MCV 86.3, MCH 27.2, MCHC 31.6 L, RDW 15.8 H, MPV 7.7, Gran % 74.7, Lymphocytes % 12.9 L, Monocytes % 11.0 H, Eosinophils % 0.8, Basophils % 0.6, Absolute Granulocytes 6.5, Absolute Lymphocytes 1.1 L, Absolute Monocytes 1.0 H, Absolute Eosinophils 0.1, Absolute Basophils 0 Microbiology 09/04 1901 NASOPHARYN: Influenza Virus A & B Rapid Smear - COMP Physician MDM: 51 yo M PMH HTN, HLD, 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 VSS, normal HR and room air O2 sat, cardiopulmonary exam as above. DDx: URI , Bronchitis, Influenza, PNA, PTX, low concern for ACS or PE (Wells 0). ECG sinus rhythm, non-ischemic. CBC with anemia around baseline, mild thrombocytosis , normal WBC count. BMP unremarkable. Influenza negative. CXR unchanged from prior, no new focal consolidations. Given duonebs x 3, prednisone, levofloxacin without improvement, on re-examination patient has persistent harsh wheezes on exam, feels subjectively worse, ambulated in the ED with marked shortness of breath, trachycardia. I discussed admission vs. discharge with the patient who stated that he feels this is one of his worse asthma exacerbations, that he will be unable to manage his Sx at home, and will likely return to the ED. Admit for asthma exacerbation. Initial ED EKG: NSR (Lorraine AHUJA,Enzo) Departure Departure Disposition: STILL A PATIENT Condition: Stable Clinical Impression Primary Impression: Asthma exacerbation Referrals: Morelia Castano APRN (PCP/Family) Departure Forms: Customer Survey General Discharge Information Prescriptions: Current Visit Scripts Glimepiride (Amaryl) 0.5 TAB PO DAILY #60 TAB Admission Note Spoke With: Michael AHUJA,Grant Documentation of Exam: Documentation of any treatments & extenuating circumstances including Concerns Regarding Discharge (functional status, medication knowledge or non-compliance, living conditions, etc.) that warrant an admission rather than observation: [ Patient presents with increased shortness of breath and increased work of breathing in the setting of asthma exacerbation, patient has been able to manage his symptoms at home and has had no improvement with ED treatments, he has persistent wheezing on exam and his Rox dyspneic with exertion, he requires admission to hospital for monitoring, frequent nebulization treatments, ongoing steroid treatment, pulmonary consult, if discharged patient is a high likelihood of progressive respiratory failure with possble cardiovascular collapse and .] (Lorraine AHUJA,Enzo) Resident Co-Sign Statement Statement: ED Attending supervision documentation- I saw and evaluated the patient. I have also reviewed all the pertinent lab results and diagnostic results. I agree with the findings and the plan of care as documented in the Resident's documentation. x I have reviewed the ED Record and agree with the Resident's documentation. [] Additions or exceptions (if any) to the Resident's note and plan are summarized below: [] (Miguelina AHUJA,Bladimir) Critical Care Note Critical Care Note Critical Care Time: non-applicable (Lorraine AHUJA,Enzo)
[2017-09-04 19:40] LABS: ABSOLUTE BASOPHIL COUNT 0 /CUMM (0.0-0.2); ABSOLUTE EOSINOPHIL COUNT 0.1 /CUMM (0.0-0.7); ABSOLUTE GRANULOCYTE CT 6.5 /CUMM (1.4-6.5); ABSOLUTE LYMPH COUNT 1.1 /CUMM (1.2-3.4); BASOPHIL % 0.6 % (0.0-2.0); EOSINOPHIL % 0.8 % (0-5); GRANULOCYTE % 74.7 % (42.2-75.2); HEMATOCRIT 37.1 % (42-52); MEAN CORPUSCULAR HGB 27.2 PG (27.0-31.0); MEAN CORPUSCULAR HGB CONC 31.6 G/DL (33.0-37.0); MEAN CORPUSCULAR VOLUME 86.3 FL (80.0-94.0); MEAN PLATELET VOLUME 7.7 FL (7.4-10.4); PLATELET COUNT 446 /CUMM (130-400); RBC DISTRIBUTION WIDTH 15.8 % (11.5-14.5); WHITE BLOOD CELL COUNT 8.7 /CUMM (4.8-10.8)
--- NOTE | 2017-09-04 19:43 | RADIOLOGY REPORT ---
EXAMINATION: XR PORTABLE CHEST CLINICAL INFORMATION: Cough, shortness of breath COMPARISON: 08/05/2017 CT scan TECHNIQUE: Portable AP view of the chest was obtained. FINDINGS: There is mild enlargement of the cardiac silhouette, similar to prior exam. The mediastinal silhouette is unremarkable. No focal pulmonary consolidation is seen. No pulmonary edema. Evaluation for pleural effusion is limited. The left lateral costophrenic angle is not included in this exam. IMPRESSION: No acute cardiopulmonary findings, considering limitations.
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
[2017-09-04] MEDS ORDERED: AMARYL4 M1 PO (22:20)
[2017-09-04 23:44] VITALS: BP 132/58
--- NOTE | 2017-09-05 02:08 | Admission Certification ---
Admission Certification Certification Statement - As attending physician, I certify that at the time of - admission, based on clinical presentation, severity of - symptoms, need for further diagnostic testing and - therapeutic interventions, and risk of adverse outcomes - without in-hospital treatment, in my clinical assessment, - this patient requires an acute hospital stay for a minimum - of two nights or longer. I have also considered psychsocial - factors such as support system, advanced age, financial - issues, cognitive issues, and failed out-patient treatments, - past re-admission history, safety of patient, and lack of - compliance as applicable. Specific rationale supporting this admission is: Asthma exacerbation.
[2017-09-05 06:22] VITALS: BP 160/74
--- NOTE | 2017-09-05 07:57 | PN- Housestaff ---
Venu Stroud 09/05/17 0757: Subjective Follow-up For: Dyspnea-Asthma exacerbation Subjective: The patient was seen and examined. Reports URI symptoms few days prior to his presentation. No h/o sick contacts. Has been more compliant with his CPAP. His SOB has minimally improved. Denies any CP, N/v/abd pain. Review of Systems Constitutional: Denies: chills, diaphoresis, fever, malaise, weakness, unexplained weight loss. Objective Last 24 Hrs of Vital Signs/I&O Vital Signs Date Time Temp Pulse Resp B/P B/P Pulse O2 O2 Flow FiO2 Mean Ox Delivery Rate 09/05 1616 94 Room Air Room Air 09/05 1416 98.8 96 20 150/60 95 Room Air 09/05 1206 94 Room Air 09/05 1110 Room Air 09/05 0906 85 164/74 09/05 0906 85 164/74 09/05 0845 94 09/05 0800 94 Room Air 09/05 0622 98.1 85 20 160/74 95 Room Air 09/05 0103 91 98 09/05 0041 97 Room Air 09/04 2344 99.5 86 20 132/58 95 Room Air 09/04 2315 Room Air 09/04 2237 99.5 93 20 142/84 96 Room Air 09/04 2054 99.5 89 20 135/93 98 Room Air 09/04 1925 98 Intake & Output 09/05 1600 09/05 0800 09/05 0000 Intake Total 800 270 0 Output Total Balance 800 270 0 Intake, IV 20 Intake, Oral 800 250 0 Patient 380 lb 385 lb Weight Weight Bed scale Reported by Patient Measurement Method Physical Exam General Appearance: Alert, Oriented X3, Cooperative, No Acute Distress Skin: No Rashes HEENT: Atraumatic, PERRLA, EOMI, Mucous Membr. moist/pink Neck: Supple Lymphatic: Axillary nl, Cervical nl Cardiovascular: Regular Rate, Normal S1, Normal S2, No Murmurs, Gallops, Rubs Lungs: expiratory wheezes, b/l rhonchi Abdomen: Normal Bowel Sounds, Soft, No Tenderness, No Hepatospenomegaly, No Masses Neurological: Normal Speech, Normal Tone Extremities: No Clubbing, No Cyanosis, No Edema, Normal Pulses, No Tenderness/ Swelling Vascular: Normal Pulses, Pulses Symmetrical Current Medications: Current Medications Sig/Elodia Start time Last Medication Dose Route Stop Time Status Admin Acetaminophen 650 MG .STK-MED ONE 09/05 1053 DC PO 09/05 1054 Acetaminophen 650 MG Q6P PRN 09/04 2245 AC 09/05 PO 1055 Albuterol Sulfate 3 ML EVERY 4 HRS/AWAKE 09/05 0845 09/05 INH 1612 Albuterol Sulfate 3 ML ONCE ONE 09/05 0015 DC INH 09/05 0016 Amlodipine Besylate 10 MG DAILY 09/05 0900 AC 09/05 PO 0906 Atorvastatin Calcium 80 MG 1700 09/05 1700 AC 09/05 PO 1757 Azithromycin 250 MG DAILY 09/05 0100 DC 09/05 PO 0142 Benzonatate 100 MG TID 09/04 2359 AC 09/05 PO 1428 Budesonide/ 2 PUF BID 09/04 224 09/05 Formoterol Fumarate INH 09 Cyclobenzaprine HCl 10 MG TID 09/05 0900 DC PO Cyclobenzaprine HCl 5 MG TID PRN 09/05 0015 AC PO Enoxaparin Sodium 40 MG DAILY 09/05 0900 AC 09/05 SC 0905 Guaifenesin/ 10 ML Q4 HRS NEEDED PRN 09/05 1845 AC Dextromethorphan PO Guaifenesin/ 10 ML Q6P PRN 09/04 2245 DC 09/05 Dextromethorphan PO 1758 Hydrochlorothiazide 25 MG DAILY 09/05 0900 AC 09/05 PO 0906 Insulin Aspart 0 TIDAC 09/05 0800 09/05 SC 1757 Ipratropium [place] 2.5 ML EVERY 4 HRS/AWAKE 09/05 0845 09/05 INH 1612 Ipratropium [place] 2.5 ML ONCE ONE 09/05 0015 DC 09/05 INH 09/05 0016 0021 Ketorolac 0 .STK-MED ONE 09/04 192 DC Tromethamine .ROUTE Levofloxacin 500 MG ONE ONE 09/04 2044 DC 09/04 PO 09/04 Lidocaine 1 PAT DAILY 09/05 0900 DC EXT Lidocaine 1 PAT DAILY 09/05 0015 AC 09/05 EXT 0034 Losartan Potassium 50 MG DAILY 09/05 0900 AC 09/05 PO 0906 Methylprednisolone 40 MG Q8 09/04 2359 09/05 IV 1429 Montelukast Sodium 10 MG AT BEDTIME 09/05 2100 AC PO Moxifloxacin HCl 400 MG ONCE ONE 09/04 2030 CAN PO 09/05 2039 Omeprazole 40 MG BID 09/05 0900 AC 09/05 PO 09 Oxycodone HCl 5 MG ONCE ONE 09/05 0015 DC 09/05 PO 09/05 0016 0026 Oxycodone/ 1 TAB Q8 09/05 0600 AC 09/05 Acetaminophen PO 09/051 1428 Oxycodone/ 0 .STK-MED ONE 09/05 2107 DC Acetaminophen PO Oxycodone/ 2 TAB ONCE ONE 09/04 2100 DC 09/04 Acetaminophen PO 09/04 2100 210 Sertraline HCl 100 MG DAILY 09/05 0900 AC 09/05 PO 09 Zolpidem Tartrate 10 MG QPM PRN 09/04 2245 AC 09/05 PO 0026 Last 24 Hrs of Lab/Darren Results Last 24 Hrs of Labs/Mics: Laboratory Tests 09/05/17 0750: Anion Gap 14, Estimated GFR > 60, BUN/Creatinine Ratio 20.0, CBC w Diff NO MAN DIFF REQ, RBC 3.82 L, MCV 85.1, MCH 27.8, MCHC 32.7 L, RDW 16.0 H, MPV 8.4, Gran % 88.6 H, Lymphocytes % 9.0 L, Monocytes % 2.4, Eosinophils % 0, Basophils % 0, Absolute Granulocytes 6.8 H, Absolute Lymphocytes 0.7 L, Absolute Monocytes 0.2, Absolute Eosinophils 0, Absolute Basophils 0 09/04/17 1930: Anion Gap 11, Estimated GFR > 60, BUN/Creatinine Ratio 18.3, Glucose 181 H, Calcium 9.3, Troponin I < 0.01, Serum Alcohol < 10.0 Assessment/Plan Assessment: This is a 51-year-old morbidly obese gentleman with a past medical history significant for hypertension, hyperlipidemia, obstructive sleep apnea on CPAP, asthma, chronic back pain, depression, type 2 diabetes diabetes mellitus, GERD, who presents to the ED with progressively worsened shortness of breath who follows Dr. Beverly outpatient. In the ED patient was given levofloxacin 500 mg x 1 dose. His flu swab came back negative and CXR was unremarkable. According to CTPMP patient has not been prescribed is any pain medications recently by his PCP. Problem list: -Asthma exacerbation -Bronchitis -Chronic back pain Plan: * C/w TRC/nebs PRN * Nocturnal CPAP * Peak flow every shift * Pulm consult appreciated will follow recs * Has received Azithromycin this AM will consider adding AB from tomorrow given bronchitis * IV methylprednisolone 40 mg * c/w Montelukast * Accu-Cheks and NovoLog SS * DVT PPX SC Lovenox * Full code Problem List: 1. Asthma 2. Diabetes mellitus type 2 3. Bronchitis 4. Asthma exacerbation Pain Ratin Pain Location: Back Pain Goal: Pain 4 or less Pain Plan: Lidoderm patch, Tylenol, Percocet Tomorrow's Labs & Rationales: CBC to monitor H&H BEP to monitor electrolytes Hang Locke MD 09/05/17 1739: Attending MD Review Statement Attending Statement Attending MD Statement: examined this patient, discuss w/resident/PA/STATEMENT PROCESSOR, agreed w/resident/PA/STATEMENT PROCESSOR, reviewed EMR data (avail), discussed with nursing, discussed with case mgmt, reviewed images, amended to note Attending Assessment/Plan: The patient was seen and discussed with house staff. Appreciate pulmonary input. Agree with plan of care as outlined.
[2017-09-05 09:33] LABS: ABSOLUTE BASOPHIL COUNT 0 /CUMM (0.0-0.2); ABSOLUTE EOSINOPHIL COUNT 0 /CUMM (0.0-0.7); ABSOLUTE LYMPH COUNT 0.7 /CUMM (1.2-3.4); EOSINOPHIL % 0 % (0-5); MEAN PLATELET VOLUME 8.4 FL (7.4-10.4)
[2017-09-05 09:40] LABS: ABSOLUTE GRANULOCYTE CT 6.8 /CUMM (1.4-6.5); ABSOLUTE MONOCYTE COUNT 0.2 /CUMM (0.10-0.60); BASOPHIL % 0 % (0.0-2.0); HEMATOCRIT 32.5 % (42-52); MEAN CORPUSCULAR HGB 27.8 PG (27.0-31.0); MEAN CORPUSCULAR HGB CONC 32.7 G/DL (33.0-37.0); MEAN CORPUSCULAR VOLUME 85.1 FL (80.0-94.0); PLATELET COUNT 391 /CUMM (130-400); RED BLOOD CELL CT 3.82 /CUMM (4.70-6.10); WHITE BLOOD CELL COUNT 7.7 /CUMM (4.8-10.8)
[2017-09-05 10:39] LABS: GRANULOCYTE % 88.6 % (42.2-75.2)
--- NOTE | 2017-09-05 12:37 | Cons- Pulmonary ---
General Information and HPI Consulting Request Date of Consult: 09/05/17 Requested By: Dr. Locke Reason for Consult: asthma exacerbation drug dependence Source of Information: patient Exam Limitations: no limitations History of Present Illness: 51 year old man, asthma, JO, elevated IgE previously. Presented with dyspnea, No fevers or wbc. cocaine use afer recreation (rare use) . He was started on Ceftriaxone/Zithromax. He is a candidate for xolair. He continues to have sputum production. He is on singulair and inhalers. No n/v/d/c. No OMER. Some discomfort on left side of chest that has improved. He has recreational use of snorting illicity drugs. Allergies/Medications Allergies: Coded Allergies: cat dander (Mild, COUGHING 09/04/17) Home Med List: Albuterol Sulfate 2.5 MG/3 ML (0.083 %) VIAL.NEB 1 Vial INH/ANUPAMA PRN RESPIRATORY (Reported) Albuterol Sulfate (Ventolin Hfa) 90 MCG HFA.AER.AD 2 PUF INH Q4-6 PRN PRN asthma Amlodipine Besylate 10 MG TABLET 1 TAB PO DAILY BP (Reported) Aspirin (Ecotrin*) 81 MG TABLET.DR 1 TAB PO DAILY HEART/BLOOD (Reported) Codeine Phosphate/Guaifenesi (Cheratussin AC Syrup) 10 MG-100 MG/5 ML LIQUID 10 ML PO Q4P PRN COUGH Cyclobenzaprine HCl 10 MG TABLET 1 TAB PO TID MUSCLE SPASMS (Reported) Esomeprazole (Nexium) 40 MG CAPSULE.DR 1 CAP PO BID GI (Reported) Ferrous Sulfate 325 MG (65 MG IRON) TABLET. 325 MG PO DAILY ANEMIA . Fluticasone/Salmeterol (Advair 500-50 Diskus) 500 MCG-50 MCG/DOSE BLST.W.DEV 1 PUF INH BID ASTHMA Glimepiride (Amaryl) 4 MG TABLET 0.5 TAB PO DAILY DM Hydrochlorothiazide 25 MG TABLET 1 TAB PO DAILY BP (Reported) Liraglutide (Victoza 3-Micah) 0.6 MG/0.1 ML (18 MG/3 ML) PEN.INJCTR 1.8 MG SC DAILY DM Losartan Potassium (Cozaar) 50 MG TABLET 1 TAB PO DAILY BP (Reported) Metformin HCl (Glucophage) 1,000 MG TABLET 1 TAB PO BID DM Montelukast Sodium 10 MG TABLET 10 MG PO AT BEDTIME ASTHMA Oxycodone HCl (Roxicodone) 5 MG TABLET 2 TAB PO Q6P PRN PAIN (Reported) Polyethylene Glycol 3350 (Miralax) 17 GRAM/DOSE POWDER 17 GM PO DAILY PRN CONSTIPATION . Rosuvastatin Calcium (Crestor) 20 MG TABLET 1 TAB PO DAILY CHOLESTEROL ( Reported) Sennosides/Docusate Sodium (Senna Plus Tablet) 8.6 MG-50 MG TABLET 1 TAB PO BID PRN CONSTIPATION . Sertraline HCl 100 MG TABLET 1 TAB PO DAILY MENTAL HEALTH (Reported) Zolpidem Tartrate 10 MG TABLET 1 TAB PO QPM PRN SLEEP (Reported) Current Medications: Current Medications Sig/Elodia Start time Last Medication Dose Route Stop Time Status Admin Acetaminophen 650 MG Q6P PRN 09/04 2245 09/05 PO 1055 Albuterol Sulfate 3 ML EVERY 4 HRS/AWAKE 09/05 0845 09/05 INH 1201 Albuterol Sulfate 3 ML ONCE ONE 09/05 0015 DC INH 09/05 0016 Albuterol Sulfate 3 ML ONCE ONE 09/04 1900 DC 09/04 INH 09/04 1901 1901 Albuterol Sulfate 3 ML ONCE ONE 09/04 1900 DC INH 09/04 1901 Albuterol Sulfate 3 ML ONCE ONE 09/04 1900 DC 09/05 INH 09/04 1901 0021 Amlodipine Besylate 10 MG DAILY 09/05 0900 09/05 PO 0906 Atorvastatin Calcium 80 MG 1700 09/05 1700 AC PO Azithromycin 250 MG DAILY 09/05 0100 DC 09/05 PO 0142 Benzonatate 100 MG TID 09/04 2359 09/05 PO 0906 Budesonide/ 2 PUF BID 09/04 2241 09/05 Formoterol Fumarate INH 0906 Cyclobenzaprine HCl 10 MG TID 09/05 0900 DC PO Cyclobenzaprine HCl 5 MG TID PRN 09/05 0015 AC PO Enoxaparin Sodium 40 MG DAILY 09/05 0900 AC 09/05 SC 0905 Guaifenesin/ 10 ML Q6P PRN 09/04 2245 09/05 Dextromethorphan PO 1130 Hydrochlorothiazide 25 MG DAILY 09/05 0900 09/05 PO 0906 Insulin Aspart 0 TIDAC 09/05 0800 AC 09/05 SC 1237 Ipratropium [place] 2.5 ML EVERY 4 HRS/AWAKE 09/05 0845 AC 09/05 INH 1202 Ipratropium [place] 2.5 ML ONCE ONE 09/05 0015 DC 09/05 INH 09/05 0016 0021 Ipratropium [place] 2.5 ML ONCE ONE 09/04 1900 DC 09/04 INH 09/04 190 1901 Ketorolac 0 .STK-MED ONE 09/04 1926 DC Tromethamine .ROUTE Ketorolac 30 MG ONCE ONE 09/04 1915 DC 09/04 Tromethamine IV 09/05 1915 192 Levofloxacin 500 MG ONE ONE 09/04 2045 DC 09/04 PO 09/04 2045 205 Lidocaine 1 PAT DAILY 09/05 0900 DC EXT Lidocaine 1 PAT DAILY 09/05 0015 AC 09/05 EXT 0034 Losartan Potassium 50 MG DAILY 09/05 0900 AC 09/05 PO 0906 Methylprednisolone 40 MG Q8 09/04 2359 AC 09/05 IV 0619 Montelukast Sodium 10 MG AT BEDTIME 09/05 2100 AC PO Moxifloxacin HCl 400 MG ONCE ONE 09/04 2030 CAN PO 09/04 2040 Omeprazole 40 MG BID 09/05 0900 AC 09/05 PO 0906 Oxycodone HCl 5 MG ONCE ONE 09/05 0015 DC 09/05 PO 09/05 0016 0026 Oxycodone/ 1 TAB Q8 09/05 0600 AC 09/05 Acetaminophen PO 09/05 2201 0534 Oxycodone/ 0 .STK-MED ONE 09/048 DC Acetaminophen PO Oxycodone/ 2 TAB ONCE ONE 09/04 2100 DC 09/04 Acetaminophen PO 09/04 210 2102 Prednisone 0 .STK-MED ONE 09/04 1916 DC PO Prednisone 60 MG ONCE ONE 09/04 1900 DC 09/04 PO 09/04 190 1911 Sertraline HCl 100 MG DAILY 09/05 0900 AC 09/05 PO 0906 Zolpidem Tartrate 10 MG QPM PRN 09/04 2245 AC 09/05 PO 0026 Review of Systems Comments 18 point review of systems was performed and reviewed. Please see pertinent positives and pertinent negatives in the HPI. Otherwise ROS is negative. Past History Travel History Traveled to [place] past 21 day No Medical History Blood Transfusion Hx: No Neurological: NONE EENT: NONE Cardiovascular: hypertension, hyperlipidemia Respiratory: asthma, bronchitis, obstructive sleep apnea Gastrointestinal: NONE Hepatic: NONE Renal: NONE Musculoskeletal: chronic back pain, CELLULITIS Psychiatric: depression Endocrine: diabetes Blood Disorders: NONE Cancer(s): NONE RECEIVER DISPATCHER/Reproductive: NONE Other Medical Hx: Hx of MRSA Surgical History Surgical History: partial lung removal splenectomy (1988) Family History Relations & Conditions If Any: FATHER FH: diabetes mellitus SISTER FH: lymphoma MOTHER FH: uterine cancer FHx: esophageal cancer Psychosocial History Where Do You Live? Home Who Do You Live With? self Services at Home: None Primary Language: Danish Smoking Status: Former Smoker ETOH Use: occasional use Illicit Drug Use: cocaine Functional Ability ADLs Independent: dressing, eating, toileting, bathing. Ambulation: independent IADLs Independent: shopping, housework, finances, food prep, telephone, transportation , medication admin. Exam & Diagnostic Data Last 24 Hrs of Vital Signs/I&O Vital Signs Date Time Temp Pulse Resp B/P B/P Pulse O2 O2 Flow FiO2 Mean Ox Delivery Rate 09/05 1206 94 Room Air 09/05 1110 Room Air 09/05 0906 85 164/74 09/05 0906 85 164/74 09/05 0845 94 09/05 0622 98.1 85 20 160/74 95 Room Air 09/05 0103 91 98 09/05 0041 97 Room Air 09/04 2344 99.5 86 20 132/58 95 Room Air 09/04 2315 Room Air 09/04 2237 99.5 93 20 142/84 96 Room Air 09/04 2054 99.5 89 20 135/93 98 Room Air 09/04 1925 98 09/04 1729 99.0 87 20 160/85 98 Room Air Intake & Output 09/05 1600 09/05 0800 09/05 0000 Intake Total 270 0 Output Total Balance 270 0 Intake, IV 20 Intake, Oral 250 0 Patient 380 lb 385 lb Weight Weight Bed scale Reported by Patient Measurement Method Physical Exam Other Physical Findings: gen awake and alert heent ncat cvs s1, s2 lungs rare rhonchi abd obese ext trace edema Last 48 Hrs of Labs/Darren: Laboratory Tests 09/05/17 0750: Anion Gap 14, Estimated GFR > 60, BUN/Creatinine Ratio 20.0, CBC w Diff NO MAN DIFF REQ, RBC 3.82 L, MCV 85.1, MCH 27.8, MCHC 32.7 L, RDW 16.0 H, MPV 8.4, Gran % 88.6 H, Lymphocytes % 9.0 L, Monocytes % 2.4, Eosinophils % 0, Basophils % 0, Absolute Granulocytes 6.8 H, Absolute Lymphocytes 0.7 L, Absolute Monocytes 0.2, Absolute Eosinophils 0, Absolute Basophils 0 09/04/171929: Anion Gap 11, Estimated GFR > 60, BUN/Creatinine Ratio 18.3, Glucose 181 H, Calcium 9.3, Troponin I < 0.01, Serum Alcohol < 10.0 09/04/171919: CBC w Diff NO MAN DIFF REQ, RBC 4.30 L, MCV 86.3, MCH 27.2, MCHC 31.6 L, RDW 15.8 H, MPV 7.7, Gran % 74.7, Lymphocytes % 12.9 L, Monocytes % 11.0 H, Eosinophils % 0.8, Basophils % 0.6, Absolute Granulocytes 6.5, Absolute Lymphocytes 1.1 L, Absolute Monocytes 1.0 H, Absolute Eosinophils 0.1, Absolute Basophils 0 Microbiology 09/04 1901 NASOPHARYN: Influenza Virus A & B Rapid Smear - COMP Assessment/Plan Impression/Plan: Impression 51 year old man, asthma, JO, elevated IgE previously. Presented with dyspnea, No fevers or wbc. cocaine use afer recreation (rare use) . He was started on Ceftriaxone/Zithromax. He is a candidate for xolair. He continues to have sputum production. He is on singulair and inhalers. No n/v/d/c. No OMER. Some discomfort on left side of chest that has improved. He has recreational use of snorting illicity drugs. Plan -keep solumedrol -trc/nebs -monitor glucose -xolair consideration as outpt - needs to see shelf filler -pain management per primary team -cont singulair DVT prophylaxis at all times counseled on cessation of illicit drug use Consult Acknowledgment - Thank you for your consult request.
[2017-09-05 14:16] VITALS: BP 150/60
[2017-09-05 22:22] VITALS: BP 142/70
[2017-09-06 06:00] VITALS: BP 158/86
--- NOTE | 2017-09-06 07:35 | PN- Housestaff ---
See Addendum Subjective Follow-up For: Dyspnea-Asthma exacerbation Subjective: The patient was seen and examined. His shortness of breath has much improved. He is complaining of chronic pain. He mentions that he was discharge from his pain management office because of positive urine for cocaine. He has been getting pain medications off the street. He usually has to take oxycodone 10 mg every 6 hours for his pain management. He denies any dizziness, lightheadedness, nausea, vomiting, abdominal pain, urinary symptoms. Vital signs stable. Review of Systems Constitutional: Denies: chills, diaphoresis, fever, malaise, weakness, unexplained weight loss. Objective Last 24 Hrs of Vital Signs/I&O Vital Signs Date Time Temp Pulse Resp B/P B/P Pulse O2 O2 Flow FiO2 Mean Ox Delivery Rate 09/06 0848 92 Room Air Room Air 09/06 0836 98.4 77 18 158/86 09/06 0836 98.4 77 18 158/86 09/06 0600 98.4 77 18 158/86 93 Room Air 09/06 0035 Room Air 09/06 0035 90 98 09/05 2222 98.7 87 18 142/70 92 Room Air 09/05 1616 94 Room Air Room Air 09/05 1416 98.8 96 20 150/60 95 Room Air 09/05 1206 94 Room Air Intake & Output 09/06 1600 09/06 0800 09/06 0000 Intake Total 270 270 Output Total Balance 270 270 Intake, IV 20 20 Intake, Oral 250 250 Physical Exam General Appearance: Alert, Oriented X3, Cooperative, Mild Distress Other Physical Findings: Skin: No Rashes HEENT: Atraumatic, PERRLA, EOMI, Mucous Membr. moist/pink Neck: Supple Lymphatic: Axillary nl, Cervical nl Cardiovascular: Regular Rate, Normal S1, Normal S2, No Murmurs, Gallops, Rubs Lungs: expiratory wheezes, exam much improved compared to yesterday Abdomen: Normal Bowel Sounds, Soft, No Tenderness, No Hepatospenomegaly, No Masses Neurological: Normal Speech, Normal Tone Extremities: No Clubbing, No Cyanosis, No Edema, Normal Pulses, No Tenderness/ Swelling Vascular: Normal Pulses, Pulses Symmetrical Current Medications: Current Medications Sig/Elodia Start time Last Medication Dose Route Stop Time Status Admin Acetaminophen 650 MG Q6P PRN 09/04 2245 AC 09/05 PO 1055 Albuterol Sulfate 3 ML EVERY 4 HRS/AWAKE 09/05 0845 AC 09/06 INH 0813 Amlodipine Besylate 10 MG DAILY 09/05 0900 AC 09/06 PO 0836 Atorvastatin Calcium 80 MG 1700 09/05 1700 AC 09/05 PO 1757 Benzonatate 100 MG TID 09/04 2359 AC 09/06 PO 0835 Budesonide/ 2 PUF BID 09/04 2241 AC 09/06 Formoterol Fumarate INH 0838 Cyclobenzaprine HCl 5 MG TID PRN 09/05 0015 AC 09/06 PO 0839 Enoxaparin Sodium 40 MG DAILY 09/05 0900 AC 09/06 SC 0838 Guaifenesin/ 10 ML Q4 HRS NEEDED PRN 09/05 1845 AC 09/06 Dextromethorphan PO 1120 Guaifenesin/ 10 ML Q6P PRN 09/04 2245 DC 09/05 Dextromethorphan PO 1758 Hydrochlorothiazide 25 MG DAILY 09/05 0900 AC 09/06 PO 0837 Insulin Aspart 0 AT BEDTIME 09/[address] [facility] Insulin Aspart 3 UNITS ONCE ONE 09/05 2215 DC 09/05 SC 09/05 2216 2244 Insulin Aspart 0 TIDAC 09/05 0800 AC 09/06 SC 0646 Insulin Detemir 7 UNITS BID 09/06 0900 09/06 SC 0837 Insulin Detemir 5 UNITS BID 09/05 2215 DC 09/05 SC 2244 Ipratropium [place] 2.5 ML EVERY 4 HRS/AWAKE 09/05 0845 09/06 INH 0813 Lidocaine 1 PAT DAILY 09/05 0015 AC 09/05 EXT 2249 Losartan Potassium 50 MG DAILY 09/05 0900 AC 09/06 PO 0836 Methylprednisolone 40 MG Q8 09/04 2359 AC 09/06 IV 0552 Montelukast Sodium 10 MG AT BEDTIME 09/05 2100 AC 09/05 PO 2110 Omeprazole 40 MG BID 09/05 0900 AC 09/06 PO 0836 Oxycodone HCl 10 MG Q6P PRN 09/06 1045 AC 09/06 PO 1115 Oxycodone/ 1 TAB Q6P PRN 09/06 1030 DC Acetaminophen PO Oxycodone/ 1 TAB Q8 09/05 0600 DC 09/05 Acetaminophen PO 09/05 2201 2110 Sertraline HCl 100 MG DAILY 09/05 0900 AC 09/06 PO 0835 Zolpidem Tartrate 10 MG QPM PRN 09/04 2245 AC 09/06 PO 0026 Last 24 Hrs of Lab/Darren Results Last 24 Hrs of Labs/Mics: Laboratory Tests 09/06/17 0751: Anion Gap 12, Estimated GFR > 60, BUN/Creatinine Ratio 27.1 H, CBC w Diff NO MAN DIFF REQ, RBC 3.93 L, MCV 85.0, MCH 27.9, MCHC 32.8 L, RDW 15.9 H, MPV 8.3, Gran % 82.2 H, Lymphocytes % 12.2 L, Monocytes % 5.6, Eosinophils % 0, Basophils % 0, Absolute Granulocytes 8.9 H, Absolute Lymphocytes 1.3, Absolute Monocytes 0.6, Absolute Eosinophils 0, Absolute Basophils 0 Assessment/Plan Assessment: This is a 51-year-old morbidly obese gentleman with a past medical history significant for hypertension, hyperlipidemia, obstructive sleep apnea on CPAP, asthma, chronic back pain, depression, type 2 diabetes diabetes mellitus, GERD, who presents to the ED with progressively worsened shortness of breath who follows Dr. Beverly outpatient. In the ED patient was given levofloxacin 500 mg x 1 dose. His flu swab came back negative and CXR was unremarkable. According to [facility] patient has not been prescribed is any pain medications recently by his PCP. Problem list: -Asthma exacerbation -Bronchitis -Chronic back pain -Hyponatremia-likely secondary to pain Plan: * C/w TRC/nebs PRN * Nocturnal CPAP * Peak flow every shift * Pulm consult appreciated will follow recs * Consult with pulmonary patient needs antibiotic therapy, leukocytosis likely reactive * IV methylprednisolone 40 mg q8, c/w current dose for now * c/w Montelukast * Accu-Cheks * Blood glucose levels running high, likely secondary to steroid use * Increased Levemir to 7 units twice a day, increased dosing for sliding scale * Utox was ordered but never sent. Followed up with nursing staff who will send it. * The patient is in severe pain, he has been taking his pain medications off the street, will resume dosing while he is admitted to the hospital, he has to contact his primary care as soon as he is discharged, hopefully be able to find a pain management for long-term. * DVT PPX SC Lovenox * Full code Problem List: 1. Asthma exacerbation 2. Sleep apnea Pain Ratin Pain Location: Back Pain Goal: Pain 4 or less Pain Plan: Oxycodone 10 mg every 6 when necessary. Tomorrow's Labs & Rationales: CBC to monitor leukocytosis and H&H BEP to monitor electrolytes
[2017-09-06 09:33] LABS: ABSOLUTE BASOPHIL COUNT 0 /CUMM (0.0-0.2); ABSOLUTE EOSINOPHIL COUNT 0 /CUMM (0.0-0.7); ABSOLUTE GRANULOCYTE CT 8.9 /CUMM (1.4-6.5); ABSOLUTE LYMPH COUNT 1.3 /CUMM (1.2-3.4); ABSOLUTE MONOCYTE COUNT 0.6 /CUMM (0.10-0.60); BASOPHIL % 0 % (0.0-2.0); EOSINOPHIL % 0 % (0-5); GRANULOCYTE % 82.2 % (42.2-75.2); HEMATOCRIT 33.3 % (42-52); MEAN CORPUSCULAR HGB 27.9 PG (27.0-31.0); MEAN CORPUSCULAR HGB CONC 32.8 G/DL (33.0-37.0); MEAN PLATELET VOLUME 8.3 FL (7.4-10.4); PLATELET COUNT 399 /CUMM (130-400); RBC DISTRIBUTION WIDTH 15.9 % (11.5-14.5); RED BLOOD CELL CT 3.93 /CUMM (4.70-6.10); WHITE BLOOD CELL COUNT 10.9 /CUMM (4.8-10.8)
[2017-09-06 14:32] VITALS: BP 140/90
--- NOTE | 2017-09-06 14:39 | PN- Pulmonary ---
Subjective HPI/Critical Care Issues: Patient seen and examined feeling better overall Objective Current Medications: Current Medications Sig/Elodia Start time Last Medication Dose Route Stop Time Status Admin Acetaminophen 650 MG Q6P PRN 09/04 2245 AC 09/05 PO 1055 Acetylcysteine 2 ML BID 09/06 2100 AC INH Albuterol Sulfate 3 ML EVERY 4 HRS/AWAKE 09/05 0845 AC 09/06 INH 1141 Amlodipine Besylate 10 MG DAILY 09/05 0900 AC 09/06 PO 0836 Atorvastatin Calcium 80 MG 1700 09/05 1700 AC 09/05 PO 1757 Benzonatate 100 MG TID 09/04 2359 AC 09/06 PO 1412 Budesonide/ 2 PUF BID 09/04 2241 AC 09/06 Formoterol Fumarate INH 0838 Cyclobenzaprine HCl 5 MG TID PRN 09/05 0015 AC 09/06 PO 0839 Enoxaparin Sodium 40 MG DAILY 09/05 0900 AC 09/06 SC 0838 Guaifenesin/ 10 ML Q4 HRS NEEDED PRN 09/05 1845 AC 09/06 Dextromethorphan PO 1120 Guaifenesin/ 10 ML Q6P PRN 09/04 2245 DC 09/05 Dextromethorphan PO 1758 Hydrochlorothiazide 25 MG DAILY 09/05 0900 AC 09/06 PO 0837 Insulin Aspart 0 AT BEDTIME 09/06 2100 AC SC Insulin Aspart 3 UNITS ONCE ONE 09/05 2215 DC 09/05 MT 09/05 2216 2244 Insulin Aspart 0 TIDAC 09/05 0800 AC 09/06 SC 1223 Insulin Detemir 7 UNITS BID 09/06 0900 AC 09/06 SC 0837 Insulin Detemir 5 UNITS BID 09/05 2215 DC 09/05 SC 2244 Ipratropium [place] 2.5 ML EVERY 4 HRS/AWAKE 09/05 0845 IN 09/06 INH 1142 Lidocaine 1 PAT DAILY 09/05 0015 AC 09/05 EXT 2249 Losartan Potassium 50 MG DAILY 09/05 0900 AC 09/06 PO 0836 Methylprednisolone 40 MG Q8 09/04 2359 AC 09/06 IV 1412 Montelukast Sodium 10 MG AT BEDTIME 09/05 2100 AC 09/05 PO 2110 Omeprazole 40 MG BID 09/05 0900 AC 09/06 PO 0836 Oxycodone HCl 10 MG Q6P PRN 09/06 1045 AC 09/06 PO 1115 Oxycodone/ 1 TAB Q6P PRN 09/06 1030 DC Acetaminophen PO Oxycodone/ 1 TAB Q8 09/05 0600 DC 09/05 Acetaminophen PO 09/05 2201 2110 Sertraline HCl 100 MG DAILY 09/05 0900 AC 09/06 PO 0835 Zolpidem Tartrate 10 MG QPM PRN 09/04 2245 AC 09/06 PO 0026 Vital Signs & I&O Last 24 Hrs of Vitals and I&O: Vital Signs Date Time Temp Pulse Resp B/P B/P Pulse O2 O2 Flow FiO2 Mean Ox Delivery Rate 09/06 1432 99.3 93 18 140/90 95 Room Air 09/06 0848 92 Room Air Room Air 09/06 0836 98.4 77 18 158/86 09/06 0836 98.4 77 18 158/86 09/06 0600 98.4 77 18 158/86 93 Room Air 09/06 0035 Room Air 09/06 0035 90 98 09/05 2222 98.7 87 18 142/70 92 Room Air 09/05 1616 94 Room Air Room Air Intake & Output 09/06 1600 09/06 0800 09/06 0000 Intake Total 270 270 Output Total Balance 270 270 Intake, IV 20 20 Intake, Oral 250 250 Exam Other Physical Findings: gen awake and alert heent ncat cvs s1, s2 lungs bilateral wheezing abd obese ext trace edema Results Last 24 Hrs of Lab Results: Laboratory Tests 09/06/17 0751: Anion Gap 12, Estimated GFR > 60, BUN/Creatinine Ratio 27.1 H, CBC w Diff NO MAN DIFF REQ, RBC 3.93 L, MCV 85.0, MCH 27.9, MCHC 32.8 L, RDW 15.9 H, MPV 8.3, Gran % 82.2 H, Lymphocytes % 12.2 L, Monocytes % 5.6, Eosinophils % 0, Basophils % 0, Absolute Granulocytes 8.9 H, Absolute Lymphocytes 1.3, Absolute Monocytes 0.6, Absolute Eosinophils 0, Absolute Basophils 0 Impression/Plan Impression/Plan Impression/Plan: Impression 51-year-old man with asthma untreated obstructive sleep apnea and elevated IgE presents with asthma exacerbation secondary to illicit drug dependence and possible bronchitis Plan -keep solumedrol -trc/nebs -mucomyst nebulized bid -pain mgmt per primary team -okay with codeine cough syrup -declines cpap use -f/u roadmaster as outpt dvt prophylaxis at all times
[2017-09-06 21:37] VITALS: BP 140/64
[2017-09-07 06:41] VITALS: BP 140/76
--- NOTE | 2017-09-07 08:01 | PN- Housestaff ---
See Addendum Subjective Follow-up For: Dyspnea-Asthma exacerbation Subjective: The patient was seen and examined. His shortness of breath is the same. At the time of our interview he is undergoing breathing treatment. He reports foreign body sensation in his eyes in feeling of dry eye also he has pain around his eyes after coughing. He denies any headache, dizziness, lightheadedness, chest pain, nausea, vomiting , abdominal pain. Blood glucose level running 300s. Vital signs stable. Review of Systems Constitutional: Denies: chills, diaphoresis, fever, malaise, weakness, unexplained weight loss. Objective Last 24 Hrs of Vital Signs/I&O Vital Signs Date Time Temp Pulse Resp B/P B/P Pulse O2 O2 Flow FiO2 Mean Ox Delivery Rate 09/07 0641 97.5 75 20 140/76 93 Room Air 09/07 0038 88 95 09/06 2239 95 Room Air 09/06 2137 97.7 80 20 140/64 95 09/06 1625 95 Room Air 09/06 1432 99.3 93 18 140/90 95 Room Air 09/06 0848 92 Room Air Room Air 09/06 0836 98.4 77 18 158/86 09/06 0836 98.4 77 18 158/86 Intake & Output 09/07 1600 09/07 0800 09/07 0000 Intake Total 250 490 Output Total Balance 250 490 Intake, IV 10 10 Intake, Oral 240 480 Physical Exam General Appearance: Alert, Oriented X3, Cooperative, No Acute Distress Other Physical Findings: Skin: No Rashes HEENT: Atraumatic, PERRLA, EOMI, Mucous Membr. moist/pink, erythematous conjunctiva noted more on the left side. No discharge noted from eyes. Neck: Supple Lymphatic: Axillary nl, Cervical nl Cardiovascular: Regular Rate, Normal S1, Normal S2, No Murmurs, Gallops, Rubs Lungs: expiratory wheezes, exam much improved compared to yesterday Abdomen: Normal Bowel Sounds, Soft, No Tenderness, No Hepatospenomegaly, No Masses Neurological: Normal Speech, Normal Tone Extremities: No Clubbing, No Cyanosis, No Edema, Normal Pulses, No Tenderness/ Swelling Vascular: Normal Pulses, Pulses Symmetrical Current Medications: Current Medications Sig/Elodia Start time Last Medication Dose Route Stop Time Status Admin Acetaminophen 650 MG Q6P PRN 09/04 2245 AC 09/05 PO 1055 Acetylcysteine 2 ML BID 09/06 2100 AC 09/06 INH 2035 Albuterol Sulfate 3 ML EVERY 4 HRS/AWAKE 09/05 0845 AC 09/07 INH 0035 Amlodipine Besylate 10 MG DAILY 09/05 0900 AC 09/06 PO 0836 Artificial Tears 2 GTT 4 TIMES/DAY PRN 09/06 1615 AC 09/07 OPH 0603 Atorvastatin Calcium 80 MG 1700 09/05 1700 AC 09/06 PO 1653 Benzonatate 100 MG TID 09/04 2359 AC 09/06 PO 2057 Budesonide/ 2 PUF BID 09/04 2241 AC 09/06 Formoterol Fumarate INH 2109 Cyclobenzaprine HCl 5 MG .STK-MED ONE 09/06 2258 DC PO 09/06 2259 Cyclobenzaprine HCl 5 MG .STK-MED ONE 09/06 1649 DC PO 09/06 1650 Cyclobenzaprine HCl 5 MG TID PRN 09/05 0015 AC 09/07 PO 0601 Enoxaparin Sodium 40 MG DAILY 09/05 0900 09/06 SC 0838 Guaifenesin 10 ML .STK-MED ONE 09/06 1119 DC PO 09/06 1120 Guaifenesin/ 10 ML Q4 HRS NEEDED PRN 09/05 1845 AC 09/06 Dextromethorphan PO 2057 Hydrochlorothiazide 25 MG DAILY 09/05 0900 AC 09/06 PO 0837 Insulin Aspart 0 AT BEDTIME 09/06 2100 AC 09/06 SC 2106 Insulin Aspart 0 TIDAC 09/06 1700 AC 09/06 SC 1655 Insulin Aspart 0 TIDAC 09/05 0800 CA 09/06 SC 1223 Insulin Detemir 7 UNITS BID 09/06 0900 09/06 SC 2105 Ipratropium [place] 2.5 ML EVERY 4 HRS/AWAKE 09/05 0845 CA 09/06 INH 1142 Lidocaine 1 PAT DAILY 09/05 0015 AC 09/05 EXT 2249 Losartan Potassium 50 MG DAILY 09/05 0900 AC 09/06 PO 0836 Methylprednisolone 40 MG Q8 09/04 2359 AC 09/07 IV 0558 Montelukast Sodium 10 MG AT BEDTIME 09/05 2100 AC 09/06 PO 2056 Omeprazole 40 MG BID 09/05 0900 AC 09/06 PO 2056 Oxycodone HCl 10 MG Q6P PRN 09/06 1045 AC 09/07 PO 0559 Oxycodone/ 1 TAB Q6P PRN 09/06 1030 DC Acetaminophen PO Sertraline HCl 100 MG DAILY 09/05 0900 AC 09/06 PO 0835 Zolpidem Tartrate 10 MG QPM PRN 09/04 2245 AC 09/07 PO 0020 Last 24 Hrs of Lab/Darren Results Last 24 Hrs of Labs/Mics: Laboratory Tests 09/07/17 0830: Anion Gap 12, Estimated GFR > 60, BUN/Creatinine Ratio 31.3 H, CBC w Diff NO MAN DIFF REQ, RBC 3.86 L, MCV 86.6, MCH 28.4, MCHC 32.8 L, RDW 16.3 H, MPV 8.2, Gran % 81.9 H, Lymphocytes % 11.9 L, Monocytes % 6.2, Eosinophils % 0, Basophils % 0, Absolute Granulocytes 12.0 H, Absolute Lymphocytes 1.7, Absolute Monocytes 0.9 H, Absolute Eosinophils 0, Absolute Basophils 0 09/06/17 1422: Urine Opiates Screen 761.00, Methadone Screen 46, Barbiturate Screen < 60, Ur Phencyclidine Scrn 6.20, Amphetamines Screen < 100, U Benzodiazepines Scrn < 85, Urine Cocaine Screen 87, Urine Cannabis Screen 32.70 Assessment/Plan Assessment: This is a 51-year-old morbidly obese gentleman with a past medical history significant for hypertension, hyperlipidemia, obstructive sleep apnea on CPAP, asthma, chronic back pain, depression, type 2 diabetes diabetes mellitus, GERD, who presents to the ED with progressively worsened shortness of breath who follows Dr. Beverly outpatient. In the ED patient was given levofloxacin 500 mg x 1 dose. His flu swab came back negative and CXR was unremarkable. According to CTPMP patient has not been prescribed is any pain medications recently by his PCP. 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 * Will add tetrahydrozoline drops for conjunctivitis, continue with artificial tears * Continue current pain management regimen while he is admitted to the hospital, he has to contact his primary care as soon as he is discharged, hopefully be able to find a pain management for long-term. * DVT PPX SC Lovenox * Full code Problem List: 1. Asthma exacerbation Pain Ratin Pain Location: NA Pain Goal: Pain 4 or less Pain Plan: Oxycodone 10 mg every 6 when necessary. Tomorrow's Labs & Rationales: CBC to monitor leukocytosis BEP and mg to monitor electrolytes
[2017-09-07 09:32] LABS: ABSOLUTE BASOPHIL COUNT 0 /CUMM (0.0-0.2); ABSOLUTE EOSINOPHIL COUNT 0 /CUMM (0.0-0.7); ABSOLUTE LYMPH COUNT 1.7 /CUMM (1.2-3.4); ABSOLUTE MONOCYTE COUNT 0.9 /CUMM (0.10-0.60); BASOPHIL % 0 % (0.0-2.0); EOSINOPHIL % 0 % (0-5); GRANULOCYTE % 81.9 % (42.2-75.2); HEMATOCRIT 33.5 % (42-52); MEAN CORPUSCULAR HGB 28.4 PG (27.0-31.0); MEAN CORPUSCULAR HGB CONC 32.8 G/DL (33.0-37.0); MEAN CORPUSCULAR VOLUME 86.6 FL (80.0-94.0); MEAN PLATELET VOLUME 8.2 FL (7.4-10.4); PLATELET COUNT 395 /CUMM (130-400); RBC DISTRIBUTION WIDTH 16.3 % (11.5-14.5); RED BLOOD CELL CT 3.86 /CUMM (4.70-6.10); WHITE BLOOD CELL COUNT 14.7 /CUMM (4.8-10.8)
--- NOTE | 2017-09-07 11:23 | PN- Pulmonary ---
Subjective HPI/Critical Care Issues: pt seen and examined feeling better lung exam improved off o2 Objective Current Medications: Current Medications Sig/Elodia Start time Last Medication Dose Route Stop Time Status Admin Acetaminophen 650 MG Q6P PRN 09/04 2245 AC 09/05 PO 1055 Acetylcysteine 2 ML BID 09/06 2100 AC 09/07 INH 0817 Albuterol Sulfate 3 ML EVERY 4 HRS/AWAKE 09/05 0845 AC 09/07 INH 0815 Amlodipine Besylate 10 MG DAILY 09/05 0900 AC 09/07 PO 0827 Artificial Tears 2 GTT 4 TIMES/DAY PRN 09/06 1615 AC 09/07 OPH 0603 Atorvastatin Calcium 80 MG 1700 09/05 1700 AC 09/06 PO 1653 Benzonatate 100 MG TID 09/04 2359 AC 09/07 PO 0827 Budesonide/ 2 PUF BID 09/04 2241 AC 09/07 Formoterol Fumarate INH 0830 Cyclobenzaprine HCl 5 MG .STK-MED ONE 09/06 2258 DC PO 09/06 2259 Cyclobenzaprine HCl 5 MG .STK-MED ONE 09/06 1649 DC PO 09/06 1650 Cyclobenzaprine HCl 5 MG TID PRN 09/05 0015 AC 09/07 PO 1001 Enoxaparin Sodium 40 MG DAILY 09/05 0900 AC 09/07 SC 0830 Glipizide 2.5 MG DAILY AC 09/07 0848 AC PO Guaifenesin/ 10 ML Q4 HRS NEEDED PRN 09/05 1845 AC 09/06 Dextromethorphan PO 2058 Hydrochlorothiazide 25 MG DAILY 09/05 0900 AC 09/07 PO 0829 Insulin Aspart 0 AT BEDTIME 09/06 2100 AC 09/06 SC 2106 Insulin Aspart 0 TIDAC 09/06 1700 AC 09/07 SC 0826 Insulin Aspart 0 TIDAC 09/05 0800 DC 09/06 SC 1223 Insulin Detemir 9 UNITS BID 09/07 0900 AC SC Insulin Detemir 7 UNITS BID 09/06 0900 DC 09/07 SC 0826 Ipratropium [place] 2.5 ML EVERY 4 HRS/AWAKE 09/05 0845 DC 09/06 INH 1142 Lidocaine 1 PAT DAILY 09/05 0015 AC 09/07 EXT 0829 Losartan Potassium 50 MG DAILY 09/05 0900 AC 09/07 PO 0829 Methylprednisolone 40 MG Q8 09/04 2359 AC 09/07 IV 0558 Montelukast Sodium 10 MG AT BEDTIME 09/05 2100 AC 09/06 PO 205 Omeprazole 40 MG BID 09/05 09 AC 09/07 PO 0827 Oxycodone HCl 10 MG Q6P PRN 09/06 1045 AC 09/07 PO 1001 Sertraline HCl 100 MG DAILY 09/05 09 AC 09/07 PO 0827 Tetrahydrozoline HCl 2 GTT BID 09/07 1102 AC OPH 09/11 2101 Zolpidem Tartrate 10 MG QPM PRN 09/04 2245 AC 09/07 PO 0020 Vital Signs & I&O Last 24 Hrs of Vitals and I&O: Vital Signs Date Time Temp Pulse Resp B/P B/P Pulse O2 O2 Flow FiO2 Mean Ox Delivery Rate 09/07 0856 95 Room Air 09/07 0829 97.5 75 20 140/76 09/07 0827 97.5 75 20 140/76 09/07 0641 97.5 75 20 140/76 93 Room Air 09/07 0038 88 95 09/06 2239 95 Room Air 09/06 2137 97.7 80 20 140/64 95 09/06 1625 95 Room Air 09/06 1432 99.3 93 18 140/90 95 Room Air Intake & Output 09/07 1600 09/07 0800 09/07 0000 Intake Total 250 490 Output Total Balance 250 490 Intake, IV 10 10 Intake, Oral 240 480 Exam Other Physical Findings: gen awake and alert heent ncat cvs s1, s2 lungs bilateral wheezing abd obese ext trace edema Results Last 24 Hrs of Lab Results: Laboratory Tests 09/07/17 0830: Anion Gap 12, Estimated GFR > 60, BUN/Creatinine Ratio 31.3 H, CBC w Diff NO MAN DIFF REQ, RBC 3.86 L, MCV 86.6, MCH 28.4, MCHC 32.8 L, RDW 16.3 H, MPV 8.2, Gran % 81.9 H, Lymphocytes % 11.9 L, Monocytes % 6.2, Eosinophils % 0, Basophils % 0, Absolute Granulocytes 12.0 H, Absolute Lymphocytes 1.7, Absolute Monocytes 0.9 H, Absolute Eosinophils 0, Absolute Basophils 0 09/06/17 1422: Urine Opiates Screen 761.00, Methadone Screen 46, Barbiturate Screen < 60, Ur Phencyclidine Scrn 6.20, Amphetamines Screen < 100, U Benzodiazepines Scrn < 85, Urine Cocaine Screen 87, Urine Cannabis Screen 32.70 Impression/Plan Impression/Plan Impression/Plan: Impression 51-year-old man with asthma untreated obstructive sleep apnea and elevated IgE presents with asthma exacerbation secondary to illicit drug dependence and possible bronchitis Plan -REDUCE solumedrol to 40mg iv q12h -trc/nebs -mucomyst nebulized bid -pain mgmt per primary team -okay with codeine cough syrup -declines cpap use -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
[2017-09-07 15:39] VITALS: BP 140/80
[2017-09-08 06:20] VITALS: BP 138/74
--- NOTE | 2017-09-08 07:51 | PN- Housestaff ---
See Addendum Subjective Follow-up For: Dyspnea-Asthma exacerbation Subjective: The patient was seen and examined. His shortness of breath has improved however still persists. Otherwise denies any complaints, his eye foreign body sensation has completely resolved. He denies any headache, nausea, vomiting, dizziness, lightheadedness, abdominal pain, urinary symptoms. VSS. No overnight events. Review of Systems Constitutional: Reports: no symptoms. Objective Last 24 Hrs of Vital Signs/I&O Vital Signs Date Time Temp Pulse Resp B/P B/P Pulse O2 O2 Flow FiO2 Mean Ox Delivery Rate 09/08 0817 93 Room Air Room Air 09/08 0620 97.9 67 20 138/74 94 Room Air 09/08 0029 94 97 09/08 0029 97 Room Air 09/08 0000 Room Air 09/07 1938 20 09/07 1838 98 Room Air Room Air 09/07 1600 95 Room Air Room Air 09/07 1539 97.0 74 24 140/80 94 09/07 1153 95 Room Air Intake & Output 09/08 1600 09/08 0800 09/08 0000 Intake Total 300 210 Output Total Balance 300 210 Intake, IV 10 Intake, Oral 300 200 Number 0 Bowel Movements Physical Exam General Appearance: Alert, Oriented X3, Cooperative, No Acute Distress Other Physical Findings: Skin: No Rashes HEENT: Atraumatic, PERRLA, EOMI, Mucous Membr. moist/pink, conjunctiva w/o erythema. No discharge noted from eyes. Neck: Supple Lymphatic: Axillary nl, Cervical nl Cardiovascular: Regular Rate, Normal S1, Normal S2, No Murmurs, Gallops, Rubs Lungs: expiratory wheezes Abdomen: Normal Bowel Sounds, Soft, No Tenderness, No Hepatospenomegaly, No Masses Neurological: Normal Speech, Normal Tone Extremities: No Clubbing, No Cyanosis, No Edema, Normal Pulses, No Tenderness/ Swelling Vascular: Normal Pulses, Pulses Symmetrical Current Medications: Current Medications Sig/Elodia Start time Last Medication Dose Route Stop Time Status Admin Acetaminophen 650 MG .STK-MED ONE 09/07 1715 DC PO 09/07 171 Acetaminophen 650 MG Q6P PRN 09/04 2245 AC 09/07 PO 1717 Acetylcysteine 2 ML BID 09/06 2100 AC 09/08 INH 0811 Albuterol Sulfate 3 ML EVERY 4 HRS/AWAKE 09/05 0845 AC 09/08 INH 0811 Amlodipine Besylate 10 MG DAILY 09/05 0900 AC 09/07 PO 0827 Artificial Tears 2 GTT 4 TIMES/DAY PRN 09/06 1615 AC 09/07 OPH 1321 Atorvastatin Calcium 80 MG 1700 09/05 1700 AC 09/07 PO 1716 Benzonatate 100 MG TID 09/04 2359 AC 09/07 PO 202 Budesonide/ 2 PUF BID 09/04 2241 AC 09/07 Formoterol Fumarate INH 2022 Cyclobenzaprine HCl 5 MG .STK-MED ONE 09/07 2247 DC PO 09/07 2248 Cyclobenzaprine HCl 5 MG .STK-MED ONE 09/07 0958 DC PO 09/07 0959 Cyclobenzaprine HCl 5 MG TID PRN 09/05 0015 AC 09/07 PO 2248 Enoxaparin Sodium 40 MG DAILY 09/05 0900 09/08 SC 0819 Glipizide 2.5 MG DAILY AC 09/07 0848 09/08 PO 0559 Guaifenesin 10 ML .STK-MED ONE 09/07 1809 DC PO 09/07 1810 Guaifenesin/ 10 ML .STK-MED ONE 09/07 1812 DC Dextromethorphan PO 09/07 1813 Guaifenesin/ 10 ML Q4 HRS NEEDED PRN 09/05 1845 AC 09/08 Dextromethorphan PO 0559 Hydrochlorothiazide 25 MG DAILY 09/05 0900 09/07 PO 0829 Insulin Aspart 5 UNITS ONCE ONE 09/08 0915 UNVr SC 09/08 0916 Insulin Aspart 0 AT BEDTIME 09/06 2100 09/07 SC 202 Insulin Aspart 0 TIDAC 09/06 1700 09/08 SC 0815 Insulin Detemir 9 UNITS BID 09/07 0900 09/08 SC 0817 Lidocaine 1 PAT DAILY 09/05 0015 09/07 EXT 0829 Losartan Potassium 50 MG DAILY 09/05 0900 AC 09/07 PO 0829 Methylprednisolone 40 MG Q12 09/07 2100 AC 09/07 IV 202 Methylprednisolone 40 MG Q8 09/04 2359 DC 09/07 IV 1319 Montelukast Sodium 10 MG AT BEDTIME 09/05 2100 AC 09/07 PO 2021 Omeprazole 40 MG BID 09/05 0900 09/07 PO 2021 Oxycodone HCl 10 MG Q6P PRN 09/06 1045 AC 09/08 PO 0559 Senna/Docusate Sodium 2 TAB DAILY PRN 09/07 1330 AC PO Sertraline HCl 100 MG DAILY 09/05 0900 AC 09/07 PO 0827 Tetrahydrozoline HCl 2 GTT BID 09/07 1102 AC 09/07 OPH 09/11 Zolpidem Tartrate 10 MG QPM PRN 09/04 2245 AC 09/08 PO 0015 Last 24 Hrs of Lab/Darren Results Last 24 Hrs of Labs/Mics: Laboratory Tests 09/08/17 0740: Anion Gap 12, Estimated GFR > 60, BUN/Creatinine Ratio 36.3 H, Magnesium 2.0, CBC w Diff NO MAN DIFF REQ, RBC 3.84 L, MCV 86.1, MCH 28.3, MCHC 32.9 L, RDW 15.6 H, MPV 8.2, Gran % 75.5 H, Lymphocytes % 16.5 L, Monocytes % 7.9, Eosinophils % 0, Basophils % 0.1, Absolute Granulocytes 13.0 H, Absolute Lymphocytes 2.8, Absolute Monocytes 1.4 H, Absolute Eosinophils 0, Absolute Basophils 0 Assessment/Plan Assessment: This is a 51-year-old morbidly obese gentleman with a past medical history significant for hypertension, hyperlipidemia, obstructive sleep apnea on CPAP, asthma, chronic back pain, depression, type 2 diabetes diabetes mellitus, GERD, who presents to the ED with progressively worsened shortness of breath who follows Dr. Beverly outpatient. In the ED patient was given levofloxacin 500 mg x 1 dose. His flu swab came back negative and CXR was unremarkable. According to CTPMP patient has not been prescribed is any pain medications recently by his PCP. 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 * Utox negative for cocaine. * Will add tetrahydrozoline drops for conjunctivitis, continue with artificial tears * Continue current pain management regimen while he is admitted to the hospital, he has to contact his primary care as soon as he is discharged, hopefully be able to find a pain management for long-term. * DVT PPX SC Lovenox * Full code Problem List: 1. Asthma 2. Asthma exacerbation attacks Pain Ratin Pain Location: Back Pain Goal: Pain 4 or less Pain Plan: Oxycodone 10 mg every 6 when necessary. Tomorrow's Labs & Rationales: CBC to monitor leukocytosis BEP and mg to monitor electrolytes
[2017-09-08 09:36] LABS: ABSOLUTE BASOPHIL COUNT 0 /CUMM (0.0-0.2); ABSOLUTE EOSINOPHIL COUNT 0 /CUMM (0.0-0.7); ABSOLUTE LYMPH COUNT 2.8 /CUMM (1.2-3.4); ABSOLUTE MONOCYTE COUNT 1.4 /CUMM (0.10-0.60); BASOPHIL % 0.1 % (0.0-2.0); EOSINOPHIL % 0 % (0-5); GRANULOCYTE % 75.5 % (42.2-75.2); HEMATOCRIT 33.1 % (42-52); MEAN CORPUSCULAR HGB 28.3 PG (27.0-31.0); MEAN CORPUSCULAR HGB CONC 32.9 G/DL (33.0-37.0); MEAN CORPUSCULAR VOLUME 86.1 FL (80.0-94.0); MEAN PLATELET VOLUME 8.2 FL (7.4-10.4); PLATELET COUNT 395 /CUMM (130-400); RBC DISTRIBUTION WIDTH 15.6 % (11.5-14.5); RED BLOOD CELL CT 3.84 /CUMM (4.70-6.10); WHITE BLOOD CELL COUNT 17.2 /CUMM (4.8-10.8)
--- NOTE | 2017-09-08 11:40 | PN- Pulmonary ---
Subjective HPI/Critical Care Issues: pt seen and examined improving overall Objective Current Medications: Current Medications Sig/Elodai Start time Last Medication Dose Route Stop Time Status Admin Acetaminophen 650 MG .STK-MED ONE 09/07 1715 DC PO 09/07 1716 Acetaminophen 650 MG Q6P PRN 09/04 2245 AC 09/08 PO 0956 Acetylcysteine 2 ML BID 09/06 2100 AC 09/08 INH 0811 Albuterol Sulfate 3 ML EVERY 4 HRS/AWAKE 09/05 0845 AC 09/08 INH 0811 Amlodipine Besylate 10 MG DAILY 09/05 0900 AC 09/08 PO 0942 Artificial Tears 2 GTT 4 TIMES/DAY PRN 09/06 1615 AC 09/07 OPH 1321 Atorvastatin Calcium 80 MG 1700 09/05 1700 AC 09/07 PO 1716 Benzonatate 100 MG TID 09/04 2359 AC 09/08 PO 0943 Budesonide/ 2 PUF BID 09/04 2241 AC 09/08 Formoterol Fumarate INH 0943 Cyclobenzaprine HCl 5 MG .STK-MED ONE 09/07 2247 DC PO 09/07 2248 Cyclobenzaprine HCl 5 MG TID PRN 09/05 0015 AC 09/07 PO 2248 Enoxaparin Sodium 40 MG DAILY 09/05 0900 09/08 SC 0819 Glipizide 2.5 MG DAILY AC 09/07 0848 09/08 PO 0559 Guaifenesin 10 ML .STK-MED ONE 09/07 1809 DC PO 09/07 1810 Guaifenesin/ 10 ML .STK-MED ONE 09/07 1812 DC Dextromethorphan PO 09/07 1813 Guaifenesin/ 10 ML Q4 HRS NEEDED PRN 09/05 1845 AC 09/08 Dextromethorphan PO 0559 Hydrochlorothiazide 25 MG DAILY 09/05 0900 09/08 PO 0942 Insulin Aspart 5 UNITS ONCE ONE 09/08 0915 DC 09/08 SC 09/08 0916 0954 Insulin Aspart 0 AT BEDTIME 09/06 2100 AC 09/07 SC 2022 Insulin Aspart 0 TIDAC 09/06 1700 AC 09/08 SC 0815 Insulin Detemir 9 UNITS BID 09/07 0900 AC 09/08 SC 0817 Lidocaine 1 PAT DAILY 09/05 0015 AC 09/08 EXT 0942 Losartan Potassium 50 MG DAILY 09/05 09 AC 09/08 PO 0942 Methylprednisolone 40 MG Q12 09/07 2100 AC 09/08 IV 0942 Methylprednisolone 40 MG Q8 09/04 2359 DC 09/07 IV 1319 Montelukast Sodium 10 MG AT BEDTIME 09/05 2099 AC 09/07 PO 202 Omeprazole 40 MG BID 09/05 09 AC 09/08 PO 0942 Oxycodone HCl 10 MG Q6P PRN 09/06 1045 AC 09/08 PO 0559 Senna/Docusate Sodium 2 TAB DAILY PRN 09/07 1330 AC PO Sertraline HCl 100 MG DAILY 09/05 0900 AC 09/08 PO 0943 Tetrahydrozoline HCl 2 GTT BID 09/07 1102 AC 09/08 OPH 09/11 210 0943 Zolpidem Tartrate 10 MG QPM PRN 09/04 2245 AC 09/08 PO 0015 Vital Signs & I&O Last 24 Hrs of Vitals and I&O: Vital Signs Date Time Temp Pulse Resp B/P B/P Pulse O2 O2 Flow FiO2 Mean Ox Delivery Rate 09/08 0942 97.9 67 20 138/74 09/08 0942 97.9 67 20 138/74 09/08 0817 93 Room Air Room Air 09/08 0620 97.9 67 20 138/74 94 Room Air 09/08 0029 94 97 09/08 0029 97 Room Air 09/08 0000 Room Air 09/07 1938 20 09/07 1838 98 Room Air Room Air 09/07 1600 95 Room Air Room Air 09/07 1539 97.0 74 24 140/80 94 09/07 1153 95 Room Air Intake & Output 09/08 1600 09/08 0800 09/08 0000 Intake Total 300 210 Output Total Balance 300 210 Intake, IV 10 Intake, Oral 300 200 Number 0 Bowel Movements Exam Other Physical Findings: gen awake and alert heent ncat cvs s1, s2 lungs bilateral wheezing abd obese ext trace edema Results Last 24 Hrs of Lab Results: Laboratory Tests 09/08/17 0740: Anion Gap 12, Estimated GFR > 60, BUN/Creatinine Ratio 36.3 H, Magnesium 2.0, CBC w Diff NO MAN DIFF REQ, RBC 3.84 L, MCV 86.1, MCH 28.3, MCHC 32.9 L, RDW 15.6 H, MPV 8.2, Gran % 75.5 H, Lymphocytes % 16.5 L, Monocytes % 7.9, Eosinophils % 0, Basophils % 0.1, Absolute Granulocytes 13.0 H, Absolute Lymphocytes 2.8, Absolute Monocytes 1.4 H, Absolute Eosinophils 0, Absolute Basophils 0 Impression/Plan Impression/Plan Impression/Plan: Impression 51-year-old man with asthma untreated obstructive sleep apnea and elevated IgE presents with asthma exacerbation secondary to illicit drug dependence and possible bronchitis Plan -transition to po prednisone -trc/nebs -pain mgmt per primary team -okay with codeine cough syrup -trying to get accustomed to cpap use -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
[2017-09-08 14:46] VITALS: BP 140/90
[2017-09-08 22:16] VITALS: BP 138/66
[2017-09-09 06:23] VITALS: BP 130/70
--- NOTE | 2017-09-09 08:08 | PN- Housestaff ---
Venu Stroud 09/09/17 0807: Subjective Follow-up For: Dyspnea-Asthma exacerbation Subjective: The patient was seen and examined. His shortness of breath has resolved. He offers no complaints. He denies any headache, nausea, vomiting, dizziness, lightheadedness, abdominal pain, urinary symptoms. VSS. No overnight events. Review of Systems Constitutional: Reports: no symptoms. Objective Last 24 Hrs of Vital Signs/I&O Vital Signs Date Time Temp Pulse Resp B/P B/P Pulse O2 O2 Flow FiO2 Mean Ox Delivery Rate 09/09 1502 98.5 68 20 130/65 97 09/09 0849 97.5 62 18 130/70 09/09 0813 98 Room Air Room Air 09/09 0623 97.5 62 18 130/70 95 09/09 0031 91 96 09/09 0024 96 Room Air 09/08 2216 99.8 68 18 138/66 93 Room Air Intake & Output 09/09 1600 09/09 0800 09/09 0000 Intake Total 200 Output Total Balance 200 Intake, Oral 200 Patient 376 lb Weight Physical Exam General Appearance: Alert, Oriented X3, Cooperative Other Physical Findings: Skin: No Rashes HEENT: Atraumatic, PERRLA, EOMI, Mucous Membr. moist/pink, conjunctiva w/o erythema. No discharge noted from eyes. Neck: Supple Lymphatic: Axillary nl, Cervical nl Cardiovascular: Regular Rate, Normal S1, Normal S2, No Murmurs, Gallops, Rubs Lungs: mild expiratory wheezes Abdomen: Normal Bowel Sounds, Soft, No Tenderness, No Hepatospenomegaly, No Masses Neurological: Normal Speech, Normal Tone Extremities: No Clubbing, No Cyanosis, No Edema, Normal Pulses, No Tenderness/ Swelling Vascular: Normal Pulses, Pulses Symmetrical Current Medications: Current Medications Sig/Elodia Start time Last Medication Dose Route Stop Time Status Admin Acetaminophen 650 MG .STK-MED ONE 09/09 1123 DC PO 09/09 1124 Acetaminophen 650 MG .STK-MED ONE 09/09 0319 DC PO 09/09 0320 Acetaminophen 650 MG .STK-MED ONE 09/085 DC PO 09/08 222 Acetaminophen 650 MG Q6P PRN 09/04 2245 DCD 09/09 PO 1126 Acetylcysteine 2 ML BID 09/06 2100 DCD 04/20 INH 0811 Albuterol Sulfate 3 ML EVERY 4 HRS/AWAKE 09/05 0845 DCD 09/09 INH 1118 Amlodipine Besylate 10 MG DAILY 09/05 0900 DCD 09/09 PO 0849 Artificial Tears 2 GTT 4 TIMES/DAY PRN 09/06 1615 DCD 09/08 OPH 1146 Aspirin 81 MG DAILY 09/09 0900 DCD 09/09 PO 1126 Atorvastatin Calcium 80 MG 1700 09/05 1700 DCD 09/08 PO 1623 Benzonatate 100 MG TID 09/04 2359 DCD 09/09 PO 1415 Budesonide/ 2 PUF BID 09/04 2241 DCD 09/09 Formoterol Fumarate INH 0846 Cyclobenzaprine HCl 5 MG .STK-MED ONE 09/09 1209 DC PO 09/09 1210 Cyclobenzaprine HCl 5 MG .STK-MED ONE 09/09 0603 DC PO 09/09 0604 Cyclobenzaprine HCl 5 MG .STK-MED ONE 09/08 2358 DC PO 09/08 2359 Cyclobenzaprine HCl 5 MG TID PRN 09/05 0015 DCD 09/09 PO 1212 Enoxaparin Sodium 40 MG DAILY 09/05 0900 DCD 09/09 SC 0847 Glipizide 2.5 MG DAILY AC 09/07 0848 DCD 09/09 PO 0600 Guaifenesin 10 ML .STK-MED ONE 09/09 1124 DC PO 09/09 1125 Guaifenesin/ 10 ML .STK-MED ONE 09/09 0603 DC Dextromethorphan PO 09/09 0604 Guaifenesin/ 10 ML .STK-MED ONE 09/09 0032 DC Dextromethorphan PO 09/09 0033 Guaifenesin/ 10 ML Q4 HRS NEEDED PRN 09/05 1845 DCD 09/09 Dextromethorphan PO 1126 Hydrochlorothiazide 25 MG DAILY 09/05 0900 DCD 09/09 PO 0849 Insulin Aspart 0 AT BEDTIME 09/06 2100 DCD 09/08 SC 2049 Insulin Aspart 0 TIDAC 09/06 1700 DCD 09/09 SC 1212 Insulin Detemir 9 UNITS BID 09/07 0900 DCD 09/09 SC 0847 Lidocaine 1 PAT DAILY 09/05 0015 DCD 04/20 EXT 0849 Losartan Potassium 50 MG DAILY 09/05 0900 DCD 09/09 PO 0849 Metformin HCl 1,000 MG BID 09/08 1227 DCD 09/09 PO 0849 Montelukast Sodium 10 MG AT BEDTIME 09/05 2100 DCD 09/08 PO 2049 Omeprazole 40 MG BID 09/05 0900 DCD 09/09 PO 0849 Oxycodone HCl 10 MG Q6P PRN 09/06 1045 DCD 09/09 PO 1126 Prednisone 60 MG DAILY 09/09 0900 DCD 09/09 PO 0849 Senna/Docusate Sodium 2 TAB DAILY PRN 09/07 1330 DCD 09/08 PO 1142 Sertraline HCl 100 MG DAILY 09/05 0900 DCD 09/09 PO 0849 Tetrahydrozoline HCl 2 GTT BID 09/07 1102 DCD 09/09 OPH 09/11 2101 0846 Zolpidem Tartrate 10 MG QPM PRN 09/04 2245 DCD 09/09 PO 0006 Assessment/Plan Assessment: This is a 51-year-old morbidly obese gentleman with a past medical history significant for hypertension, hyperlipidemia, obstructive sleep apnea on CPAP, asthma, chronic back pain, depression, type 2 diabetes diabetes mellitus, GERD, who presents to the ED with progressively worsened shortness of breath who follows Dr. Beverly outpatient. In the ED patient was given levofloxacin 500 mg x 1 dose. His flu swab came back negative and CXR was unremarkable. According to [facility]MP patient has not been prescribed is any pain medications recently by his PCP. Problem list: -Asthma exacerbation -Bronchitis -Chronic back pain -Hyponatremia-likely secondary to pain -Conjunctivitis-resolved -Leukocytosis-no sign of infection;likely 2/2 steroid use. Plan: * C/w TRC/nebs PRN * Nocturnal CPAP * Pulm consult appreciated will follow recs * Leukocytosis likely reactive; no need for antibiotics at this point * Prednisone taper PO as per pulm recs * c/w Montelukast * Utox negative for cocaine. * to be discharge with one week supply of narcotic and follow with PCP and pain managment. * DC on INS SS to add with regular MEDIA/INSTRUCTIONAL DESIGNER metformin, glimepiride and victoza, needs refill for lancet but has enough supply of needle at home from past prescribtion. * Follow up with pulm on discharge. * DVT PPX SC Lovenox * Full code Problem List: 1. Asthma exacerbation attacks Pain Ratin Pain Location: NA Pain Goal: Pain 4 or less Pain Plan: Oxycodone 10 mg every 6 when necessary. Tomorrow's Labs & Rationales: Hang Gomes MD 09/09/17 1644: Attending MD Review Statement Attending Statement Attending MD Statement: examined this patient, discuss w/resident/PA/CONSTRUCTION EQUIPMENT MECHANIC HELPER, agreed w/resident/PA/CONSTRUCTION EQUIPMENT MECHANIC HELPER, reviewed EMR data (avail), discussed with nursing, discussed with case mgmt, amended to note Attending Assessment/Plan: The patient was seen and discussed with house staff, nursing, and case management. The patient has clinically improved. OK to discharge to home today. Will only give 1 week of narcotic and patient needs to see PCP who will need to arrange pain management. Pulmonary follow-up as per Dr. Beverly.
--- NOTE | 2017-09-09 08:24 | Patient Discharge Instructions ---
Discharge Instructions General Discharge Information You were seen/treated for: Asthma exacerbation Special Instructions: -Please follow-up with your PCP within a week of discharge. -Please follow-up with your security sme, Dr. Beverly within a week of discharge. -Please take your medications as instructed. -Please return to the hospital if your symptoms not improve/worsen.. Diet Continue normal diet: Yes Recommended Diet: Diabetic Activity Additional ACTIVITY Info: As tolerated Acute Coronary Syndrome Inclusion Criteria At DC or during hospital stay patient has or had the following: Discharge Core Measures Meds if any: Prescribed or Continued at Discharge Meds if any: NOT Prescribed or Continued at Discharge Congestive Heart Failure Inclusion Criteria At DC or during hospital stay patient has or had the following: Discharge Core Measures Meds if any: Prescribed or Continued at Discharge Meds if any: NOT Prescribed or Continued at Discharge Cerebrovascular accident Inclusion Criteria At DC or during hospital stay patient has or had the following: CVA/TIA Diagnosis No Discharge Core Measures Meds if any: Prescribed or Continued at Discharge Meds if any: NOT Prescribed or Continued at Discharge Venous thromboembolism Discharge Core Measures - Per Current guidelines, there needs to be overlap - treatment for the first 5 days of Warfarin therapy. - If discharged on Warfarin prior to 5 days of - overlap therapy, the patient will need to be - assessed for post discharge needs including - *Post discharge parental anticoagulation - *Warfarin and/or parental anticoagulation education - *Follow up date to check INR post discharge Meds if any: Prescribed or Continued at Discharge Note: Overlap Therapy is Warfarin and Anticoagulant Meds if any: NOT Prescribed or Continued at Discharge
[2017-09-09] MEDS ORDERED: PREDNISONE10 M2 PO ×2 (10:57→13:57)
[2017-09-09] MEDS ORDERED: VICTOZA 3-0.6 MG/0.1 SC ×3 (10:57→13:57)
[2017-09-09] MEDS ORDERED: NOVOLOG100 UNIT/2 SC ×2 (11:07→13:57)
[2017-09-09] MEDS ORDERED: ROXICODONE5 M1 PO ×2 (11:10→13:08)
[2017-09-09] MEDS ORDERED: GLIMEPIRIDE4 M1 PO (11:12)
--- NOTE | 2017-09-09 11:55 | PN- Pulmonary ---
Subjective HPI/Critical Care Issues: pt seen and examined feeling better awaiting dc Objective Current Medications: Current Medications Sig/Elodia Start time Last Medication Dose Route Stop Time Status Admin Acetaminophen 650 MG .STK-MED ONE 09/09 0319 DC PO 09/09 0320 Acetaminophen 650 MG .STK-MED ONE 09/08 2225 DC PO 09/08 2226 Acetaminophen 650 MG .STK-MED ONE 09/08 1620 DC PO 09/08 1621 Acetaminophen 650 MG Q6P PRN 09/04 2245 AC 09/09 PO 1126 Acetylcysteine 2 ML BID 09/06 2100 AC 09/09 INH 0811 Albuterol Sulfate 3 ML EVERY 4 HRS/AWAKE 09/05 0845 AC 09/09 INH 1118 Amlodipine Besylate 10 MG DAILY 09/05 0900 AC 09/09 PO 0849 Artificial Tears 2 GTT 4 TIMES/DAY PRN 09/06 1615 AC 09/08 OPH 1146 Aspirin 81 MG DAILY 09/09 0900 AC 09/09 PO 1126 Atorvastatin Calcium 80 MG 1700 09/05 1700 AC 09/08 PO 1623 Benzonatate 100 MG TID 09/04 2359 AC 09/09 PO 0849 Budesonide/ 2 PUF BID 09/04 2241 AC 09/09 Formoterol Fumarate INH 0846 Cyclobenzaprine HCl 5 MG .STK-MED ONE 09/08 2358 DC PO 09/08 2359 Cyclobenzaprine HCl 5 MG .STK-MED ONE 09/08 1801 DC PO 09/08 1802 Cyclobenzaprine HCl 5 MG TID PRN 09/05 0015 AC 09/09 PO 0603 Enoxaparin Sodium 40 MG DAILY 09/05 0900 AC 09/09 SC 0847 Glipizide 2.5 MG DAILY AC 09/07 0848 AC 09/09 PO 0600 Guaifenesin/ 10 ML .STK-MED ONE 09/09 0032 DC Dextromethorphan PO 09/09 0033 Guaifenesin/ 10 ML .STK-MED ONE 09/08 191 DC Dextromethorphan PO 09/08 191 Guaifenesin/ 10 ML Q4 HRS NEEDED PRN 09/05 1845 AC 09/09 Dextromethorphan PO 1126 Hydrochlorothiazide 25 MG DAILY 09/05 0900 AC 09/09 PO 0849 Insulin Aspart 0 AT BEDTIME 09/06 2100 AC 09/08 SC 9 Insulin Aspart 0 TIDAC 09/06 1700 AC 09/09 SC 0848 Insulin Detemir 9 UNITS BID 09/07 0900 AC 09/09 SC 0847 Lidocaine 1 PAT DAILY 09/05 0015 AC 09/09 EXT 0849 Losartan Potassium 50 MG DAILY 09/05 0900 AC 09/09 PO 0849 Metformin HCl 1,000 MG BID 09/08 1227 AC 09/09 PO 0849 Methylprednisolone 40 MG Q12 09/07 2100 DC 09/08 IV 0942 Montelukast Sodium 10 MG AT BEDTIME 09/05 2100 AC 09/08 PO 2049 Omeprazole 40 MG BID 09/05 0900 AC 09/09 PO 0849 Oxycodone HCl 10 MG Q6P PRN 09/06 1045 AC 09/09 PO 1126 Prednisone 60 MG DAILY 09/09 0900 AC 09/09 PO 0849 Senna/Docusate Sodium 2 TAB DAILY PRN 09/07 1330 AC 09/08 PO 1142 Sertraline HCl 100 MG DAILY 09/05 0900 AC 09/09 PO 0849 Tetrahydrozoline HCl 2 GTT BID 09/07 1102 AC 09/09 OPH 09/11 2101 0846 Zolpidem Tartrate 10 MG QPM PRN 09/04 2245 AC 09/09 PO 0006 Vital Signs & I&O Last 24 Hrs of Vitals and I&O: Vital Signs Date Time Temp Pulse Resp B/P B/P Pulse O2 O2 Flow FiO2 Mean Ox Delivery Rate 09/09 0849 97.5 62 18 130/70 09/09 0813 98 Room Air Room Air 09/09 0623 97.5 62 18 130/70 95 09/09 0031 91 96 09/09 0024 96 Room Air 09/08 2216 99.8 68 18 138/66 93 Room Air 09/08 1615 96 Room Air 09/08 1446 97.0 73 18 140/90 93 Room Air Intake & Output 09/09 1600 09/09 0800 09/09 0000 Intake Total 200 Output Total Balance 200 Intake, Oral 200 Patient 376 lb Weight Exam Other Physical Findings: gen awake and alert heent ncat cvs s1, s2 lungs bilateral wheezing abd obese ext trace edema Impression/Plan Impression/Plan Impression/Plan: Impression 51-year-old man with asthma untreated obstructive sleep apnea and elevated IgE presents with asthma exacerbation secondary to illicit drug dependence and possible bronchitis Plan -patient requesting codeine syrup for discharge - this is appropriate - please provide a short term prescription -transition to po prednisone -trc/nebs -pain mgmt per primary team -trying to get accustomed to cpap use -f/u coupon and bond collection clerk as outpt dvt prophylaxis at all times okay for dc
[2017-09-09] MEDS ORDERED: FREESTYLE LITE1 EACH MC ×2 (13:31→13:58)
[2017-09-09 15:02] VITALS: BP 130/65
== END 2017-09-09 15:45 | DRG 141 ==
LOC: ERH 17:16 → 2NA 21:20 → ERHI 21:20 → ENRESERV 22:22 → ENTRNSPT 22:41 → EDTRNSPTSTS 22:48 → 2NA 22:53 → CMPTRNSPT 23:10 → 2NA 09-05 09:28 → ENPENDDIS 09-09 14:12 → 2NA 09-09 15:45
PROVIDERS: Internal Medicine; Student in an Organized Health Care Education/Training Program
PROC: 5A09457 Assistance with Respiratory Ventilation, 24-96 Consecutive Hours, Continuous Positive Airway Pressure (ICD-10-PCS; principal; 2017-09-05)
DX: J45.901 Unspecified asthma with (acute) exacerbation (principal); E66.01 Morbid (severe) obesity due to excess calories; Z68.42 Body mass index [BMI] 45.0-49.9, adult; G47.33 Obstructive sleep apnea (adult) (pediatric); Z79.84 Long term (current) use of oral hypoglycemic drugs; I10 Essential (primary) hypertension; K21.9 Gastro-esophageal reflux disease without esophagitis; Z91.19 Patient's noncompliance with other medical treatment and regimen; G89.29 Other chronic pain; M54.9 Dorsalgia, unspecified; E87.1 Hypo-osmolality and hyponatremia; F19.90 Other psychoactive substance use, unspecified, uncomplicated; Z87.891 Personal history of nicotine dependence; Z79.82 Long term (current) use of aspirin; Z79.891 Long term (current) use of opiate analgesic; Z79.51 Long term (current) use of inhaled steroids; F32.9 Major depressive disorder, single episode, unspecified; Z90.81 Acquired absence of spleen; Z90.2 Acquired absence of lung [part of]; R91.8 Other nonspecific abnormal finding of lung field; E11.9 Type 2 diabetes mellitus without complications; H10.9 Unspecified conjunctivitis
CPT/HCPCS: 2NAP; 36592; 71045; 80307; 82436; 87804; 87804-59; 93005; 93010; 96374; G0480; J0456; J1650; J1885; J2920; J3490; J7608

== ENCOUNTER 2018-01-02 23:56 | Emergency (ER) | payer OTHER ==
[~2018-01-02] VITALS: Ht 193 cm; Wt 170.1 kg
[~2018-01-02 23:56] MED LIST changes: +FREESTYLE LITE1 EACH MC; +GLIMEPIRIDE4 M1 PO
--- NOTE | 2018-01-03 00:43 | ED GENERAL ADULT ---
History of Present Illness General Chief Complaint: Laceration Procedure Stated Complaint: PT HERE C/O RT INDEX FINGER LAC S/P CRAB BITE Source: patient Exam Limitations: no limitations Vital Signs & Intake/Output Vital Signs & Intake/Output Vital Signs Date Time Temp Pulse Resp B/P B/P Pulse O2 O2 Flow FiO2 Mean Ox Delivery Rate 01/03 0032 97.3 90 18 122/70 93 Room Air Allergies Coded Allergies: mold (Intermediate, SOB 01/03/18) cat dander (Mild, COUGHING 09/04/17) Reconcile Medications Albuterol Sulfate 2.5 MG/3 ML (0.083 %) VIAL.NEB 1 Vial INH/ANUPAMA PRN RESPIRATORY (Reported) Albuterol Sulfate (Ventolin Hfa) 90 MCG HFA.AER.AD 2 PUF INH Q4-6 PRN PRN asthma Amlodipine Besylate 10 MG TABLET 1 TAB PO DAILY BP (Reported) Aspirin (Ecotrin*) 81 MG TABLET.DR 1 TAB PO DAILY HEART/BLOOD (Reported) Blood Sugar Diagnostic (Freestyle Lite Strips) 1 EACH STRIP 1 STR MC TIDAC/HS DM Cephalexin (Keflex) 500 MG CAPSULE 1 CAP PO TID lac Codeine Phosphate/Guaifenesi (Cheratussin AC Syrup) 10 MG-100 MG/5 ML LIQUID 10 ML PO Q4P PRN COUGH Cyclobenzaprine HCl 10 MG TABLET 1 TAB PO TID MUSCLE SPASMS (Reported) Esomeprazole (Nexium) 40 MG CAPSULE. 1 CAP PO BID GI (Reported) Ferrous Sulfate 325 MG (65 MG IRON) TABLET.DR 325 MG PO DAILY ANEMIA . Fluticasone/Salmeterol (Advair 500-50 Diskus) 500 MCG-50 MCG/DOSE BLST.W.DEV 1 PUF INH BID ASTHMA Glimepiride 4 MG TABLET 0.5 TAB PO DAILY DM (Reported) Hydrochlorothiazide 25 MG TABLET 1 TAB PO DAILY BP (Reported) Insulin Aspart (Novolog) 100 UNIT/ML VIAL 1 INJ SC SEE ADMIN CRITERIA DM TIDAC HS <80 hypoglycemia protocol 80-200 0 0 201-250 4 0 251-300 6 1 301-350 8 2 352-400 9 3 >400 12 4 Liraglutide (Victoza 3-Micah) 0.6 MG/0.1 ML (18 MG/3 ML) PEN.INJCTR 1.8 MG SC DAILY DM Liraglutide (Victoza 3-Micah) 0.6 MG/0.1 ML (18 MG/3 ML) PEN.INJCTR 1.8 MG SC DAILY DM Losartan Potassium (Cozaar) 50 MG TABLET 1 TAB PO DAILY BP (Reported) Metformin HCl (Glucophage) 1,000 MG TABLET 1 TAB PO BID DM Montelukast Sodium 10 MG TABLET 10 MG PO AT BEDTIME ASTHMA Oxycodone HCl (Roxicodone) 5 MG TABLET 2 TAB PO Q6P PRN PAIN Polyethylene Glycol 3350 (Miralax) 17 GRAM/DOSE POWDER 17 GM PO DAILY PRN CONSTIPATION . Prednisone 10 MG TABLET 0 PO SEE ADMIN CRITERIA Asthma exacerbation 6tab4/,09/11,5tab4/,09/13,09/14,4tab4,09/16,09/17,3tab4,09/19,09/20 2on5/2,5/3,5/,1tab5/5,5/6,5/7,0.5tab5/8,09/28,510 Rosuvastatin Calcium (Crestor) 20 MG TABLET 1 TAB PO DAILY CHOLESTEROL ( Reported) Sennosides/Docusate Sodium (Senna Plus Tablet) 8.6 MG-50 MG TABLET 1 TAB PO BID PRN CONSTIPATION . Sertraline HCl 100 MG TABLET 1 TAB PO DAILY MENTAL HEALTH (Reported) Zolpidem Tartrate 10 MG TABLET 1 TAB PO QPM PRN SLEEP (Reported) Triage Note: TRIAGE: PATIENT TO ER FROM HOME REPORTING CRAB BITE TO R INDEX FINGER APPROX 9PM TONIGHT. NO ACTIVE BLEEDING NOTED. C-SHAPED LAC NOTED TO TOP OF FINGER, SKIN HANGING FROM SITE. NOT UTD W/ TETNAUS. Triage Nurses Notes Reviewed? yes Onset: Abrupt Duration: hour(s): Timing: constant HPI: 52-year-old right-hand dominant male with a history of hypertension, hyperlipidemia, asthma, depression, diabetes, status post splenectomy presenting with laceration to right index finger approximately 2-3 hours prior to arrival. Patient reports that he was fishing and was bit by a blue crab. Denies numbness or paresthesias. Unsure of his last tetanus shot. (Mat JOHNSON,Maryam) Past History Travel History Traveled to [place] past 21 day No Medical History Any Pertinent Medical History? see below for history Neurological: NONE EENT: NONE Cardiovascular: hypertension, hyperlipidemia Respiratory: asthma, bronchitis, obstructive sleep apnea Gastrointestinal: NONE Hepatic: NONE Renal: NONE Musculoskeletal: chronic back pain, CELLULITIS Psychiatric: depression Endocrine: diabetes Blood Disorders: NONE Cancer(s): NONE FLIGHT AGENT/Reproductive: NONE Other Medical Hx: Hx of MRSA History of MRSA: Yes History of VRE: No History of CDIFF: No Influenza Vaccine: 03/23/17 Surgical History Surgical History: partial lung removal splenectomy (1988) Psychosocial History Who do you live with Patient/Self Services at Home None What is your primary language Congolese Tobacco Use: Current Not Daily Daily Tobacco Use Amount/Type: =< 4 Cigarettes daily Family History Family History, If Any: FATHER FH: diabetes mellitus SISTER FH: lymphoma MOTHER FH: uterine cancer FHx: esophageal cancer Hx Contributory? No (Maryam Munoz) Review of Systems Review of Systems Constitutional: Reports: no symptoms. EENTM: Reports: no symptoms. Respiratory: Reports: no symptoms. Cardiovascular: Reports: no symptoms. GI: Reports: no symptoms. Genitourinary: Reports: no symptoms. Musculoskeletal: Reports: no symptoms. Skin: Reports: see HPI. Neurological/Psychological: Reports: no symptoms. Hematologic/Endocrine: Reports: no symptoms. Immunologic/Allergic: Reports: no symptoms. All Other Systems: Reviewed and Negative (Maryam Munoz) Physical Exam Physical Exam General Appearance: well developed/nourished, no apparent distress, alert, awake , comfortable Head: atraumatic, normal appearance Eyes: Bilateral: normal appearance. Neck: normal inspection Respiratory: normal breath sounds, lungs clear Cardiovascular: regular rate/rhythm Gastrointestinal: soft, non-tender Back: normal inspection Extremities: curvilinear shaped laceration to the distal phalanx of the right index finger, no visible foreign bodies, unrestricted range of motion at the MCP /PIP/DIP joints, sensation intact to median and radial nerves. Motor strength 5 out of 5 with digit flexion, extension, interosseous strength. Radial pulse 2+. Neurologic/Psych: awake, alert, oriented x 3, normal gait, normal mood/affect Skin: normal color, warm/dry Core Measures ACS in differential dx? No CVA/TIA Diagnosis: No Sepsis Present: No Sepsis Focused Exam Completed? No (Maryam Munoz) Progress Differential Diagnoses I considered the following diagnoses in my evaluation of the patient: [ Laceration versus foreign body versus fracture versus tendon injury versus nerve injury versus vascular injury] Plan of Care: Orders Procedure Date/time Status XRY-FINGERS, RIGHT 01/03 47 Active Current Medications Sig/Elodia Start time Last Medication Dose Stop Time Status Admin Cephalexin 500 MG ONCE ONE 01/03 100 UNVr (Keflex 500MG Cap) 01/03 101 Counseled on wound care and strict return precautions. Patient sent to Dr. Benson with x-ray pending. Initial ED EKG: none (Mat JOHNSON,Maryam) Diagnostic Imaging: Viewed by Me: Radiology Read. Discussed w/RAD: Radiology Read. Radiology Impression: PATIENT: JUDI BASHIR PRESENT AGE: 52 PATIENT ACCOUNT NO: [id number] : 65 LOCATION: [facility] ORDERING PHYSICIAN: Maryam JOHNSON SERVICE DATE: 01/03/18 EXAM TYPE : RAD - XRY-FINGERS, RIGHT EXAMINATION: XR FINGER, RIGHT CLINICAL INFORMATION: Laceration from crab bite COMPARISON: None TECHNIQUE: 3 views of the right hand second digit. FINDINGS: Soft tissue irregularity of the distal second digit. No radiopaque foreign body. No acute fracture or dislocation. Mild degenerative changes throughout the interphalangeal joints. Small osteophytes are present. Mild degenerative changes also present at the metacarpophalangeal joints. IMPRESSION: Soft tissue injury of the second digit with no acute fracture or malalignment. Degenerative changes. DICTATED BY: Mathew Bey MD DATE/TIME DICTATED:01/03/18115 CARPENTERS HELPER:MYRA DATE/TIME TRANSCRIBED:115 CONFIDENTIAL, DO NOT COPY WITHOUT APPROPRIATE AUTHORIZATION. < Electronically signed in Other Vendor System> SIGNED BY: Mathew Bey MD 01/03/18 012 (Kelley AHUJA,Sean Jordan) Departure Departure Disposition: HOME OR SELF CARE Condition: Stable Clinical Impression Primary Impression: Finger laceration Referrals: Morelia Castano APRN (PCP/Family) Additional Instructions: Keep the wound clean and dry. Use ibuprofen as needed for pain. Follow-up with your primary care provider for reevaluation. Return to the emergency department for any normal worsening symptoms. Departure Forms: Customer Survey General Discharge Information Prescriptions: Current Visit Scripts Cephalexin (Keflex) 1 CAP PO TID #30 CAP (Maryam Munoz) PA/HIDE EXAMINER Co-Sign Statement Statement: ED Attending supervision documentation- [x I saw and evaluated the patient. I have also reviewed all the pertinent lab results and diagnostic results. I agree with the findings and the plan of care as documented in the PA's/HIDE EXAMINER's documentation. [] I have reviewed the ED Record and agree with the PA's/HIDE EXAMINER's documentation. [] Additions or exceptions (if any) to the PAs/HIDE EXAMINER's note and plan are summarized below: [] (Kelley AHUJA,Sean Jordan) Procedures Laceration/Wound Repair Laceration/Wound Repair: Wound Location: upper extremity (right index finger) Wound's Depth, Shape: flap Wound Length (cm): 2 Wound Explored: clean, no foreign body removed Irrigated w/ Saline (ccs): 120 Betadine Prep? Yes Anesthesia: digit block, 1% lidocaine Suture Size/Type: 5:0, absorable Number of Sutures: 2 Date of Last Tetanus: 01/03/18 (Maryam Munoz) Critical Care Note Critical Care Note Critical Care Time: non-applicable (Maryam Munoz)
[2018-01-03] MEDS ORDERED: KEFLEX500 M1 PO (00:55)
--- NOTE | 2018-01-03 01:22 | RADIOLOGY REPORT ---
EXAMINATION: XR FINGER, RIGHT CLINICAL INFORMATION: Laceration from crab bite COMPARISON: None TECHNIQUE: 3 views of the right hand second digit. FINDINGS: Soft tissue irregularity of the distal second digit. No radiopaque foreign body. No acute fracture or dislocation. Mild degenerative changes throughout the interphalangeal joints. Small osteophytes are present. Mild degenerative changes also present at the metacarpophalangeal joints. IMPRESSION: Soft tissue injury of the second digit with no acute fracture or malalignment. Degenerative changes.
[2018-01-03 01:51] VITALS: BP 128/68
== END 2018-01-03 01:52 ==
LOC: ERH 23:56
DX: S61.218A Laceration without foreign body of other finger without damage to nail, initial encounter (principal); W56.81XA Bitten by other nonvenomous marine animals, initial encounter; Y92.9 Unspecified place or not applicable; Y93.89 Activity, other specified
CPT/HCPCS: 73140-RT; 90471; 90714; J2001